=== PATIENT | male | born 1935 | race Caucasian/White ===

== ENCOUNTER 2019-08-21 11:04 | Outpatient (RCR) | payer MEDICARE, SELFPAY ==
[2019-08-21 14:50] LABS: INR 3.4; Prothrombin Time 33.9 Seconds (11.1-14.7)
== END 2019-11-19 23:59 | disposition home or self-care (01) ==
LOC: ANHLAB 11:04
PROVIDERS: PCP Internal Medicine; Visit Provider Internal Medicine Hematology & Oncology
DX: Z51.81 Encounter for therapeutic drug level monitoring (principal); I48.91 Unspecified atrial fibrillation; Z79.899 Other long term (current) drug therapy
CPT/HCPCS: 36415; 85610

== ENCOUNTER 2019-08-26 12:09 | Inpatient (IN) | payer MEDICARE, SELFPAY ==
[2019-08-26] VITALS (8 sets, daily range): BP systolic 121–148; BP diastolic 55–77; PULSE 67–81; RESP 16–24; TEMP 36.1–37.7; O2SAT 99–100; BMI 25.6
--- NOTE | ~2019-08-26 | CT_ITS ---
EXAMINATION: CT abdomen pelvis w con DATE: 08/26/2019 14:55 INDICATION: Leaking gastrostomy tube site TECHNIQUE: Computed tomography (CT) of the abdomen and pelvis was performed without intravenous contr ast. Automated exposure control and iterative reconstruction technique were employed. Exam dose: 534 .29 mGy-cm total exam DLP. COMPARISON: 06/06/2019 CT abdomen FINDINGS: There changes of mild atelectasis or scarring at the dependent lower lobes primarily. No pu lmonary consolidation or mass lesion is noted in the included lower lung zones. Pacemaker leads are noted in the heart. Heart size is borderline. No pericardial or pleural effusion. A gastrostomy tube tract is noted. There is soft tissue density and minimal gas along the tract. No a bscess cavity is detected. There is approximately 1.5 cm ill-defined mass of the caudate process of the liver. There is an approximately 1.1 cm mm right hepatic nonspecific hypoattenuating lesion. Hepatic metasta ses or primary malignancy must be considered. The gallbladder is present. No bile duct or pancreatic duct dilatation. No pancreatic mass lesion or calcification. There are multiple splenic calcified granulomas. No splenomegaly. There is mild left adrenal gland calcification. The adrenal glands are otherwise unremarkable. There are bilateral renal cysts, measuring up to 2.3 cm dimension on the right, 2 cm dimension on the left. No urinary tract calculus or hydroureteronephrosis is detected. The urinary bladder is unremar kable. Mild prostate enlargement. There is calcification and ectasia of the abdominal aorta. There is calcification of the mesenteric a nd renal arteries and the iliac and femoral arteries. No intraperitoneal or retroperitoneal or pelvic mass lesion or adenopathy or ascites. Normal appendix. No bowel obstruction or intraperitoneal free air. There is mild colonic diverticulos is; no CT evidence of diverticulitis. Small fat-containing left inguinal hernia. Healing anterior right 10th rib fracture. There are multiple old healed anterior right ninth, eighth, seventh and sixth rib fractures. There is mild anterior wedge compression fracture deformity, likely old, and T12. There is degenerati ve disc disease throughout the lumbar and lumbosacral spine, most pronounced at L3-4 and L5-S1. There is minimal retrolisthesis at L2-3. There is degenerative change at the apophyseal joints. 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 IMPRESSION: 2 nonspecific hepatic space-occupying mass lesions are noted, measuring 1.5 and 1.1 cm; secondary or primary hepatic malignancy cannot be excluded Gastrostomy tube tract; no abscess cavity detected Bilateral renal cysts Mild left adrenal gland calcification Mild colonic diverticulosis Small fat-containing left inguinal hernia Multiple compression fracture of T12 Multiple right rib fractures, some old, with subacute healing right anterior 10th rib fracture Reviewed, dictated and finalized at [facility]. Reviewed, dictated and finalized at [facility]. [employer] MEMBER IMPRESSION: 2 nonspecific hepatic space-occupying mass lesions are noted, rosana uring 1.5 and 1.1 cm; secondary or primary hepatic malignancy cannot be exclude d Gastrostomy tube tract; no abscess cavity detected Bilateral renal cysts Mild left adrenal gland calcification Mild colonic diverticulosis Small fat-containing left inguinal hernia Multiple compression fracture of T12 Multiple right rib fractures, some old, with subacute healing right anterior 10 th rib fracture
--- NOTE | ~2019-08-26 | XR_ITS ---
EXAMINATION: XR UGIAC wo kub DATE: 09/01/2019 09:11 INDICATION: Gastrocutaneous fistula. TECHNIQUE: The patient drank thick barium, gas-producing crystals, and thin barium. A total of 464 fl uoroscopic images of the esophagus, stomach, and proximal small bowel were obtained. Fluoroscopy expo sure time was 2.4 minutes. COMPARISON: None. FINDINGS: Dilation somewhat limited by limited mobility of the patient with pain in the decubitus positions and unable to be placed in the prone position. Esophageal diverticulum near the thoracic inlet with left and right-sided posterior outpouchings of contrast. The more distal esophagus is normal without mass or stricture. Esophageal motility is within normal limits for age. There is a small sliding-type hia marni hernia with a couple episodes of spontaneous gastroesophageal reflux of moderate amounts of contr ast. There is an additional tiny approximately 4 mm diameter contained outpouching of contrast along the anterior wall of the gastric antrum seen on the right lateral decubitus image in location consist ent with the site of a prior percutaneous gastrostomy tube tract. No evident tracking along the abdom inal wall or further extension to the skin surface. The stomach and proximal small bowel are otherwis e normal. Right internal jugular central venous port catheter tip at the caudal superior vena cava. C ardiac pacemaker lead with tip at the right ventricle. IMPRESSION: 1. Small 4 mm contained outpouching of contrast at the anterior gastric antrum likely at the tract of a prior percutaneous gastrostomy tube. No evident extension to the skin surface or significant loss of gaseous distention of the stomach during the double contrast portion of the study. 2. Upper esophageal diverticulum. 3. Small sliding-type hiatal hernia with gastroesophageal reflux. Reviewed, dictated and finalized at [facility]. S [employer]UITMENT REPRESENTATIVE IMPRESSION: 1. Small 4 mm contained outpouching of contrast at the anterior gastric antrum likely at the tract of a prior percutaneous gastrostomy tube. No evident extens ion to the skin surface or significant loss of gaseous distention of the stomac h during the double contrast portion of the study. 2. Upper esophageal diverticulum. 3. Small sliding-type hiatal hernia with gastroesophageal reflux.
--- NOTE | 2019-08-26 13:36 | ED.RECABL ---
HPI - Recheck/Abnormal Lab/Rx General Chief Complaint: Recheck/Abnormal Lab/Rx Stated Complaint: Feeding tube site leaking. Time Seen by Provider: 08/26/19 13:08 Source: patient Mode of arrival: ambulatory Limitations: no limitations History of Present Illness HPI narrative: Pt is an 83 y/o male who presents to the ED with c/o his G-tube leaking. Pt states he got the G-tube inserted on 07/14/20 d/t his throat CA and his radiation therapy. Pt states that he has never used his G-tube to feed himself, but notes that it has been leaking since it was inserted by Dr. Vogel, the general surgeon. His G-tube was removed 4 days ago, but pt has been having leaking of fluids from his site. Pt is able to eat and drink but when he does it starts leaking from his G-tube site and he states that he feels dehydrated. Pt's oncologist is Dr. Funk and Dr. Bedolla. Pt has not had a BM but he is able to urinate. Pt's spouse has been wrapping his G-tube site BID. He reports ABD pain at G-tube site and throat pain, but denies CP or vomiting. MD complaint: other (G-tube leaking) Symptoms since prior visit: worsening pain Context: other (G-tube leaking) Associated symptoms: abdominal pain and other (throat pain) Treatments prior to arrival: dressings Related Data Home Medications Medication Instructions Recorded Confirmed calcium carbonate [Calcium 600] 600 mg PO DAILY 06/18/19 08/21/19 cholecalciferol (vitamin D3) 1,000 unit PO DAILY 06/18/19 08/21/19 [Vitamin D3] dorzolamide-timolol 1 drp OPHTHALMIC (EYE) BID 06/18/19 08/21/19 folic acid 1 mg PO DAILY 06/18/19 08/21/19 levothyroxine 125 mcg PO DAILY 06/18/19 08/21/19 metoprolol succinate 100 mg PO BID 06/18/19 08/21/19 multivitamin 1 tablet PO DAILY 06/18/19 08/21/19 acetaminophen [Mapap Extra 08/26/19 Strength] aspirin [Aspirin Low Dose] 08/26/19 atorvastatin [Lipitor] 08/26/19 metformin mg 08/26/19 methotrexate (PF) SUBCUT 08/26/19 tofacitinib [Xeljanz XR] mg PO 08/26/19 tramadol mg 08/26/19 warfarin 4 mg PO DAILY 08/26/19 Allergies Allergy/AdvReac Type Severity Reaction Status Date / Time amlodipine Allergy Unknown Swelling Verified 08/26/19 13:28 Review of Systems Review of Systems: Narrative: CONSTITUTIONAL: Reports decreased intake ENT: Reports throat pain CARDIOVASCULAR: Denies chest pain. GASTROINTESTINAL: Reports pain to G-tube site. Denies vomiting GENITOURINARY: Denies difficulty urinating. All systems reviewed & are unremarkable except as noted in HPI and below PMFSH Social History Social History Smoking packs per day: 3 Smoking cigarettes per day: 60.0 Years smoked: 55 Smoking pack-years: 165.00 Smoking status: Former smoker Tobacco type: cigarettes Alcohol intake: current Substance use: never Gender identity (if verbalized by the patient): Male Spiritual care concerns: No Exam Narrative: Exam Narrative: GENERAL: Awake, alert, no acute distress HEAD: Normocephalic, atraumatic. EYES: PERRLA and EOMI. ENT: Nares clear, no rhinorrhea or epistaxis. Mucous membranes dry NECK: Supple. CHEST: Clear to auscultation. No respiratory distress. HEART: Regular rate and rhythm. No murmur heard. Normal peripheral pulses. ABDOMEN: Soft, G-tube site appears to be patent despite G-tube being removed, leakage of gastric material, abd tenderness, no guarding or rebound EXTREMITIES: Normal range of motion. No edema. SKIN: Warm, dry, no rash. NEURO: No focal deficits. Alert and oriented x3 Course Course Emergency Course: Patient presented to the emergency department for evaluation of complication status post gastric tube removal. Patient is still reporting leakage of gastric contents. Dr. Vogel called to check in on the patient after he arrived to the emergency department, we will obtain laboratory studies to check for any electrolyte abnormalities, and patient will be given IV fluids, antiemetic, pain medic
[2019-08-26 14:16] LABS: Hematocrit 38.3 % (42.0-52.0); Hemoglobin 12.5 g/dL (14.0-18.0); Immature Granulocyte Absolute 0.02 K/mm3 (0.00-0.031); Lymphocytes Absolute Auto 0.14 K/mm3 (0.9-3.2); Lymphocytes Percent Auto 7.2 % (18.3-44.2); Mean Corpuscular HGB Conc 32.6 g/dl (32-36); Mean Corpuscular Hemoglobin 32.1 pg (26-34); Mean Corpuscular Volume 98.5 fl (80-100); Mean Platelet Volume 9.9 fl (7.4-10.4); Monocytes Absolute Auto 0.3 K/mm3 (0.1-0.6); Monocytes Percent Auto 13.9 % (2.6-8.5); Neutrophils Absolute Auto 1.5 K/mm3 (1.3-6.7); Neutrophils Percent Auto 76.9 % (45.5-73.1); Platelet Count Result 143 k/mm3 (150-375); Red Blood Count 3.89 M/mm3 (4.6-6.20); Red Cell Distribution Width 15.6 % (11.5-14.5)
[2019-08-26 14:28] LABS: Alanine Aminotransferase 20 U/L (4-50); Albumin Level 3.8 g/dL (3.5-5.1); Alkaline Phosphatase 90 U/L (38-126); Aspartate Amino Transferase 20 U/L (17-59); Bilirubin,Total 0.9 mg/dL (0.2-1.3); Blood Urea Nitrogen 20 mg/dL (9-20); Carbon Dioxide 27 mmol/L (22-30); Chloride 100 mmol/L (98-107); Estimated CRCL calculation 76 ml/min; Estimated Glomerular Filt Rate > 60; Glucose 136 mg/dL (75-110); Lipase 79 U/L (23-300); Potassium 3.9 mmol/L (3.4-5.0); Sodium 138 mmol/L (137-145)
[2019-08-26] MEDS: ONDANSETRON INJ 4 MG/2 ML VIAL IV PUSH (14:28)
[2019-08-26] MEDS: MORPHINE SULFATE 4 MG/ML INJ IV PUSH ×2 (14:28→16:29)
[2019-08-26] MEDS: SODIUM CHLORIDE 0.9% IV 1,000 ML 999 ML IV CONT (14:29)
[2019-08-26 14:30] LABS: White Blood Count 1.9 K/mm3 (4.5-10.0)
[2019-08-26 14:40] LABS: INR 2.5; Partial Thromboplastin Time 44.5 SECONDS (22.3-36.8); Prothrombin Time 26.2 Seconds (11.1-14.7)
--- NOTE | 2019-08-26 16:50 | ADMGEN ---
This patient, Miguel Cruz, was admitted to Medical Room 349-01. Patient arrived to unit per stretcher. Patient/family oriented to hospital policies and general routines including ID bracelet, bed and alarms, visiting hours, pain management, procedures, bathroom and other care routines, personal items, smoking policy, room service/diet, and visiting hours. Valuables list has been completed. Information on how to activate the Rapid Response Team has been discussed. Patient/Family are encouraged to report perceived risks to care and to ask questions if they do not understand what they are told or what they should do.
--- NOTE | 2019-08-26 17:05 | PM.IMHP ---
H&P: HPI History of Present Illness Chief complaint: Abd pain/g tube site complication Narrative: Miguel Cruz is a 83 year old male Who presents with drainage at his G-tube site. He just had his G-tube removed 4 days ago, and has been having drainage of gastric contents at the site ever since. He is having a lot of pain and irritation from the drainage. He also has not been eating or drinking much due to the amount of drainage. He has pain at the site, but no generalized abdominal pain. No fevers or other new changes. He is currently undergoing chemotherapy for esophageal cancer. The G-tube was placed due to significant dysphagia with the esophageal mass. He never actually had to use the G-tube as he was still able to swallow a full liquid diet without much difficulty. Review of Systems Review of Systems: All systems reviewed & are unremarkable except as noted in HPI and below Cardiovascular: Cardiovascular: Denies chest pain Respiratory: Respiratory: Denies cough and Denies dyspnea Gastrointestinal: Gastrointestinal: Reports as per HPI PMFSH Past Medical History Medical History Atrial fibrillation CAD (coronary artery disease) AMI x 3, s/p coronary artery stents Cancer ESOPHAGEAL Cardiac arrhythmia s/p pacemaker Diabetes mellitus HTN (hypertension) Hypercholesterolemia Hypothyroidism Pacemaker Rheumatoid arthritis Skin cancer Surgical History Surgical History Amputated toe Cataract Pacemaker 2012 Family History Family History Other No family history of cancer No family history of cardiac disease Social History Social History Smoking packs per day: 3 Smoking cigarettes per day: 60.0 Years smoked: 55 Smoking pack-years: 165.00 Smoking status: Former smoker Tobacco type: cigarettes Alcohol intake: current Substance use: never Gender identity (if verbalized by the patient): Male Spiritual care concerns: No Meds Home Medications and Allergies Home Medications Medication Instructions Recorded Confirmed Type calcium carbonate [Calcium 600] 600 mg PO DAILY 06/18/19 08/21/19 History cholecalciferol (vitamin D3) 1,000 unit PO DAILY 06/18/19 08/21/19 History [Vitamin D3] dorzolamide-timolol 1 drp OPHTHALMIC (EYE) BID 06/18/19 08/21/19 History folic acid 1 mg PO DAILY 06/18/19 08/21/19 History levothyroxine 125 mcg PO DAILY 06/18/19 08/21/19 History metoprolol succinate 100 mg PO BID 06/18/19 08/21/19 History multivitamin 1 tablet PO DAILY 06/18/19 08/21/19 History hydrocodone 7.5 mg-acetaminophen 15 ml PO Q6H PRN #250 ml 07/22/19 08/21/19 Rx 325 mg/15 mL oral solution acetaminophen [Mapap Extra 08/26/19 History Strength] aspirin [Aspirin Low Dose] 08/26/19 History atorvastatin [Lipitor] 08/26/19 History metformin mg 08/26/19 History methotrexate (PF) SUBCUT 08/26/19 History tofacitinib [Xeljanz XR] mg PO 08/26/19 History tramadol mg 08/26/19 History warfarin 4 mg PO DAILY 08/26/19 History Allergies Allergy/AdvReac Type Severity Reaction Status Date / Time amlodipine Allergy Unknown Swelling Verified 08/26/19 13:28 Vital Signs Vital Signs - 24 hr 08/26/19 12:49 08/26/19 13:31 08/26/19 13:51 Temperature 37.7 C H Pulse Rate 81 81 67 Respiratory Rate 18 24 H 18 Blood Pressure 127/73 142/75 H 135/73 Pulse Oximetry 100 100 100 08/26/19 14:24 08/26/19 15:17 08/26/19 16:21 Temperature Pulse Rate 78 71 75 Respiratory Rate 18 20 18 Blood Pressure 148/71 H 136/77 140/73 Pulse Oximetry 100 100 99 Exam Const: General: comfortable, no acute distress and alert; No acute distress Orientation/consciousness: patient oriented x3 Limitations: no limitations HENMT: Head: normocephalic and atraumatic Ears:
[2019-08-26] MEDS: DEXTROSE 5%/0.45% SOD CHL 1,000 ML 100 ML IV CONT (17:51)
[2019-08-26] MEDS: PANTOPRAZOLE SODIUM IV 40 MG VIAL IV PUSH (20:00)
[2019-08-26 21:36] LABS: Glucose Point of Care 99 (65-105)
[2019-08-27] VITALS (7 sets, daily range): BP systolic 125–142; BP diastolic 59–69; PULSE 62–79; RESP 16–18; TEMP 36.2; O2SAT 99–100; BMI 25.6
[2019-08-27] MEDS: DEXTROSE 5%/0.45% SOD CHL 1,000 ML 100 ML IV CONT ×2 (06:35→17:46)
[2019-08-27] MEDS: PANTOPRAZOLE SODIUM IV 40 MG VIAL IV PUSH ×2 (08:42→21:35)
[2019-08-27 08:43] LABS: Add Urine Microscopic? YES; Appearance Urine Clear (Clear); Bilirubin Urine Negative (Negative); Blood Urine Negative (Negative); Color Urine Yellow (Yellow); Glucose Urine UA Negative (Negative); Ketones Urine Trace mg/dL (Negative); Leukocyte Esterase Ur Negative LEU/UL (NEGATIVE); Nitrate Urine Negative (Negative); Protein Urine Negative (Negative); RBC Urine 0-2 /hpf (0-2); WBC Urine 0-3 /hpf (0-3)
[2019-08-27 08:57] LABS: Specific Grav Ur 1.048 (1.001-1.035)
--- NOTE | 2019-08-27 09:09 | PM.PNGS ---
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 This may close with a period of NPO. Will have to continue to monitor. Started Protonix IV as well to help with gastric secretion. Will consult Wound/ET nurse to evaluate for wound care while this is still draining. (2) Acute urinary retention: Code(s): R33.8 - Other retention of urine Status: Acute Assessment and Plan: Patient does not have a prior hx. Will check bladder scan later today after being straight cathed today. (3) Protein calorie malnutrition: Qualifiers: Protein-calorie malnutrition severity: mild Qualified Code(s): E44.1 - Mild protein-calorie malnutrition Code(s): E46 - Unspecified protein-calorie malnutrition Status: Acute Assessment and Plan: Will start TPN today. This may only be temporary while patient is NPO, but if the fistula persists, then he may need to be on TPN until the fistula can be surgically taken down. (4) Acute dehydration: Code(s): E86.0 - Dehydration Status: Acute (5) Esophageal cancer, stage IV: Code(s): C15.9 - Malignant neoplasm of esophagus, unspecified Status: Acute (6) Atrial fibrillation: Code(s): I48.91 - Unspecified atrial fibrillation Status: Acute (7) Hypercholesterolemia: Code(s): E78.00 - Pure hypercholesterolemia, unspecified Status: Acute (8) HTN (hypertension): Code(s): I10 - Essential (primary) hypertension Status: Acute (9) Hypothyroidism: Code(s): E03.9 - Hypothyroidism, unspecified Status: Acute (10) Diabetes mellitus: Code(s): E11.9 - Type 2 diabetes mellitus without complications Status: Acute Subjective Subjective Date/Time Seen: 08/27/19 09:09 Patient still having some drainage out the G-tube site. Also having urinary retention overnight and had to be straight cathed this AM. Exam GI: Other: small opening from g-tube site, mucus drainage with mild surrounding erythema Objective Data Vital Signs Vital Signs: Vital Signs - 24 hr 08/26/19 12:49 08/26/19 13:31 08/26/19 13:51 Temperature 37.7 C H Pulse Rate 81 81 67 Respiratory Rate 18 24 H 18 Blood Pressure 127/73 142/75 H 135/73 Pulse Oximetry 100 100 100 08/26/19 14:24 08/26/19 15:17 08/26/19 16:21 Temperature Pulse Rate 78 71 75 Respiratory Rate 18 20 18 Blood Pressure 148/71 H 136/77 140/73 Pulse Oximetry 100 100 99 08/26/19 17:00 08/26/19 20:11 08/27/19 05:15 Temperature 36.5 C 36.1 C L 36.2 C L Pulse Rate 80 80 67 Respiratory Rate 16 16 16 Blood Pressure 146/75 H 121/55 L 142/64 H Pulse Oximetry 100 99 99 Intake/Output Intake/Output: Intake & Output 08/24/19 08/25/19 08/26/19 08/27/19 23:59 23:59 23:59 23:59 Intake Total 1000 1000 Output Total 1900 Balance 1000 -900 Meds/Results Medications: Active Medications Generic Name Dose Route Start Last Admin Trade Name Freq PRN Reason Stop Dose Admin Dorzolamide/Timolol 1 drop 08/27/19 21:00 Cosopt Eye Drops EACH EYE Q12HR SARIKA Dextrose/Sodium Chloride 1,000 mls @ 100 mls/hr 08/26/19 15:35 08/27/19 06:35 Dextrose 5% Sodium Chloride 0.45% IV CONT 100 mls/hr .Q10H SARIKA Administration Acetaminophen 1,000 mg in 100 mls @ 400 mls/hr 08/26/19 17:15 Ofirmev 1,000 Mg Ivpb IVPB 08/27/19 17:16 Q6H PRN Pain Rated 1-3 Dextrose 1,000 mls @ 50 mls/hr 08/27/19 09:00 Dextrose 10% IV CONT .Q20H PRN if PN is interrupted Multivitamins 5 ml/ Amino 2,005 mls @ 40 mls/hr 08/27/19 09:00 Acids/Electrolytes/Dextrose IV CONT .Q24H SARIKA Protocol Insulin Aspart 0 units 08/27/19 12:00 SUB-Q Q6HR SARIKA Protocol Levothyroxine Sod
[2019-08-27] MEDS: LEVOTHYROXINE SODIUM 125 MCG TABLET PO (10:09)
[2019-08-27] MEDS: METOPROLOL SUCCINATE EXT REL 100 MG TABCR PO ×2 (10:10→21:35)
[2019-08-27 10:54] LABS: Alanine Aminotransferase 14 U/L (4-50); Albumin Level 2.8 g/dL (3.5-5.1); Alkaline Phosphatase 71 U/L (38-126); Aspartate Amino Transferase 15 U/L (17-59); Bilirubin,Total 0.7 mg/dL (0.2-1.3); Blood Urea Nitrogen 11 mg/dL (9-20); Calcium 8.1 mg/dL (8.4-10.2); Carbon Dioxide 26 mmol/L (22-30); Chloride 101 mmol/L (98-107); Estimated CRCL calculation 87 ml/min; Estimated Glomerular Filt Rate > 60; Glucose 172 mg/dL (75-110); Magnesium 1.6 mg/dL (1.6-2.3); Potassium 3.2 mmol/L (3.4-5.0); Sodium 136 mmol/L (137-145)
[2019-08-27 10:55] LABS: Partial Thromboplastin Time 47.9 SECONDS (22.3-36.8)
[2019-08-27 10:57] LABS: Transferrin 136 mg/dL (206-381)
[2019-08-27 11:53] LABS: Hematocrit 28.8 % (42.0-52.0); Hemoglobin 8.5 g/dL (14.0-18.0); Mean Corpuscular HGB Conc 29.5 g/dl (32-36); Mean Corpuscular Volume 108.3 fl (80-100); Mean Platelet Volume 9.6 fl (7.4-10.4); Platelet Count Result 97 k/mm3 (150-375); Red Blood Count 2.66 M/mm3 (4.6-6.20); Red Cell Distribution Width 15.8 % (11.5-14.5)
[2019-08-27 11:57] LABS: White Blood Count 1.2 K/mm3 (4.5-10.0)
[2019-08-27 12:52] LABS: Band Neutrophils Percent 4 % (0-6); Lymphocytes Absolute Manual 0.19 K/mm3 (1.1-4.5); Metamyelocytes Percent 4 %; Monocytes Absolute Manual 0.04 K/mm3 (0.1-0.90); Monocytes Percent Manual 4 % (3-9); Neutrophils Absolute Manual 0.91 K/mm3 (1.3-6.7); Neutrophils Percent Manual 72 % (46-73); Platelet Estimate Decreased (Adequate); Polychromasia 1+ (NORMAL); Schistocytes 1+ (NORMAL); Total Cells Counted 25
[2019-08-27 12:53] LABS: Ovalocytes 2+ (NORMAL)
[2019-08-27 12:58] LABS: Glucose Point of Care 214 (65-105)
[2019-08-27] MEDS: INSULIN HUMAN REGULAR (*BKC) 100 UNITS/ML SUB-Q (13:57)
[2019-08-27] MEDS: MORPHINE SULFATE 4 MG/ML INJ IV PUSH ×2 (17:58→21:36)
[2019-08-27 18:04] LABS: Glucose Point of Care 159 (65-105)
[2019-08-27] MEDS: DORZOLAMIDE/TIMOLOL OPHTH SOL 10 ML BOTTLE 1 DROP EACH EYE (21:35)
[2019-08-28 00:21] LABS: Glucose Point of Care 183 (65-105)
[2019-08-28 06:00] VITALS: BP 125/68
[2019-08-28] MEDS: DEXTROSE 5%/0.45% SOD CHL 1,000 ML 100 ML IV CONT (06:11)
[2019-08-28] MEDS: LEVOTHYROXINE SODIUM 125 MCG TABLET PO (06:12)
[2019-08-28 06:16] LABS: Hematocrit 29.8 % (42.0-52.0); Hemoglobin 9.7 g/dL (14.0-18.0); Mean Corpuscular HGB Conc 32.6 g/dl (32-36); Mean Corpuscular Hemoglobin 31.8 pg (26-34); Mean Corpuscular Volume 97.7 fl (80-100); Mean Platelet Volume 9.3 fl (7.4-10.4); Platelet Count Result 115 k/mm3 (150-375); Red Blood Count 3.05 M/mm3 (4.6-6.20); Red Cell Distribution Width 15.6 % (11.5-14.5)
[2019-08-28 06:27] LABS: Alanine Aminotransferase 12 U/L (4-50); Albumin Level 2.6 g/dL (3.5-5.1); Alkaline Phosphatase 61 U/L (38-126); Aspartate Amino Transferase 13 U/L (17-59); Bilirubin,Total 0.5 mg/dL (0.2-1.3); Blood Urea Nitrogen 12 mg/dL (9-20); Calcium 7.7 mg/dL (8.4-10.2); Carbon Dioxide 26 mmol/L (22-30); Chloride 100 mmol/L (98-107); Estimated CRCL calculation 87 ml/min; Estimated Glomerular Filt Rate > 60; Glucose 132 mg/dL (75-110); Magnesium 1.6 mg/dL (1.6-2.3); Phosphorus 3.3 mg/dL (2.5-4.5); Potassium 2.9 mmol/L (3.4-5.0); Sodium 134 mmol/L (137-145); Triglycerides 144 mg/dL (<150)
[2019-08-28 06:30] LABS: Glucose Point of Care 139 (65-105)
[2019-08-28 07:00] LABS: White Blood Count 1.2 K/mm3 (4.5-10.0)
[2019-08-28 07:02] LABS: Band Neutrophils Percent 4 % (0-6); Lymphocytes Absolute Manual 0.26 K/mm3 (1.1-4.5); Monocytes Absolute Manual 0.13 K/mm3 (0.1-0.90); Monocytes Percent Manual 11 % (3-9); Neutrophils Percent Manual 63 % (46-73); Platelet Estimate Decreased (Adequate); Total Cells Counted 100
[2019-08-28 09:35] VITALS: BP 135/67; PULSE 72
[2019-08-28] MEDS: DORZOLAMIDE/TIMOLOL OPHTH SOL 10 ML BOTTLE 1 DROP EACH EYE ×2 (09:37→21:37)
[2019-08-28] MEDS: PANTOPRAZOLE SODIUM IV 40 MG VIAL IV PUSH ×2 (09:40→21:41)
[2019-08-28] MEDS: MORPHINE SULFATE 4 MG/ML INJ IV PUSH ×3 (09:41→21:41)
[2019-08-28 10:00] VITALS: PULSE 67
[2019-08-28] MEDS: METOPROLOL SUCCINATE EXT REL 100 MG TABCR PO ×2 (10:00→21:37)
--- NOTE | 2019-08-28 11:27 | PM.PNGS ---
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 If it does not close within the next 2-3 days, will need to proceed with takedown of gastrocutaneous fistula. (2) Protein calorie malnutrition: Qualifiers: Protein-calorie malnutrition severity: mild Qualified Code(s): E44.1 - Mild protein-calorie malnutrition Code(s): E46 - Unspecified protein-calorie malnutrition Status: Acute Assessment and Plan: TPN renewed Replace electrolytes (3) Acute urinary retention: Code(s): R33.8 - Other retention of urine Status: Resolved Assessment and Plan: Urinating better today (4) Esophageal cancer, stage IV: Code(s): C15.9 - Malignant neoplasm of esophagus, unspecified Status: Acute (5) Atrial fibrillation: Code(s): I48.91 - Unspecified atrial fibrillation Status: Acute (6) Hypercholesterolemia: Code(s): E78.00 - Pure hypercholesterolemia, unspecified Status: Acute (7) HTN (hypertension): Code(s): I10 - Essential (primary) hypertension Status: Acute (8) Hypothyroidism: Code(s): E03.9 - Hypothyroidism, unspecified Status: Acute (9) Diabetes mellitus: Code(s): E11.9 - Type 2 diabetes mellitus without complications Status: Acute Subjective Subjective Date/Time Seen: 08/28/19 11:27 Ostomy bag applied over wound yesterday. Still having some gas and liquid in bag today. Mostly complains of throat pain from radiation. Exam GI: Inspection: other (gastrocutaneous fistula with scant drainage and gas in ostomy bag) Objective Data Vital Signs Vital Signs: Vital Signs - 24 hr 08/27/19 14:00 08/27/19 19:57 08/27/19 20:00 Temperature 36.2 C L 36.2 C L Pulse Rate 67 79 62 Respiratory Rate 18 16 16 Blood Pressure 126/59 L 125/69 Pulse Oximetry 100 100 100 08/27/19 21:35 08/28/19 06:00 08/28/19 10:00 Temperature Pulse Rate 62 67 Respiratory Rate Blood Pressure 125/68 Pulse Oximetry Intake/Output Intake/Output: Intake & Output 08/25/19 08/26/19 08/27/19 08/28/19 23:59 23:59 23:59 23:59 Intake Total 1000 1999 3255 Output Total 2850 350 Balance 1000 -850 2905 Meds/Results Medications: Active Medications Generic Name Dose Route Start Last Admin Trade Name Freq PRN Reason Stop Dose Admin Benzocaine 1 lozenge 08/28/19 11:27 Chloraseptic Lozenge PO Q6H PRN Sore Throat Dorzolamide/Timolol 1 drop 08/27/19 21:00 08/28/19 09:37 Cosopt Eye Drops EACH EYE 1 drop Q12HR SARIKA Administration Heparin Sodium (Porcine) 500 units 08/28/19 11:18 Heparin Sod Flush 100 Units/Ml IV PUSH PRN PRN see comments below Dextrose/Sodium Chloride 1,000 mls @ 100 mls/hr 08/26/19 15:35 08/28/19 06:11 Dextrose 5% Sodium Chloride 0.45% IV CONT 100 mls/hr .Q10H SARIKA Administration Dextrose 1,000 mls @ 50 mls/hr 08/27/19 09:00 Dextrose 10% IV CONT .Q20H PRN if PN is interrupted Multivitamins 5 ml/ Amino 2,005 mls @ 40 mls/hr 08/27/19 10:00 08/28/19 09:51 Acids/Electrolytes/Dextrose IV CONT 40 mls/hr .Q24H SARIKA Administration Protocol Fat Emulsion Intravenous 250 mls @ 20.833 mls/hr 08/28/19 11:00 Lipids 20% IVPB Q24H SARIKA Potassium Chloride 100 mls @ 25 mls/hr 08/28/19 11:07 Kcl 40 Meq/Water 100 Ml IVPB 08/28/19 15:06 ONCE ONE Insulin Aspart 0 units 08/27/19 12:00 08/28/19 06:12 SUB-Q Not Given Q6HR SARIKA Protocol Levothyroxine Sodium 125 mcg 08/27/19 09:00 08/28/19 06:12 Synthroid PO 125 mcg DAILY@0630 SARIKA Administration Metoprolol Succinate 100 mg 08/27/19 09:00 08/28/19 10:00 Toprol Xl PO 100 mg Q12HR SARIKA Administration Morphine Sulfate
[2019-08-28] MEDS: BENZOCAINE/MENTHOL (*BKC) 18 EA LOZENGE 1 LOZENGE PO (12:13)
[2019-08-28] MEDS: FAT EMULSIONS IV 20% 250 ML 20.8 ML IVPB (12:14)
[2019-08-28 12:20] LABS: Glucose Point of Care 170 (65-105)
[2019-08-28 14:00] VITALS: BP 130/67; PULSE 85; RESP 20; TEMP 36.2; O2SAT 100
[2019-08-28] MEDS: EUCERIN CREAM 120 GM JAR 1 APPLIC TOPICAL (17:43)
[2019-08-28 17:46] LABS: Glucose Point of Care 152 (65-105)
[2019-08-28 21:37] VITALS: PULSE 68
[2019-08-28 21:39] VITALS: BP 127/62; PULSE 67; RESP 16; TEMP 37; O2SAT 98
[2019-08-29 01:24] LABS: Glucose Point of Care 155 (65-105)
[2019-08-29 04:51] VITALS: BP 102/48; PULSE 67; RESP 16; TEMP 36.7; O2SAT 98
[2019-08-29] MEDS: LEVOTHYROXINE SODIUM 125 MCG TABLET PO (05:54)
[2019-08-29 05:58] LABS: Glucose Point of Care 98 (65-105)
[2019-08-29 06:16] LABS: Blood Urea Nitrogen 16 mg/dL (9-20); Calcium 7.7 mg/dL (8.4-10.2); Carbon Dioxide 23 mmol/L (22-30); Chloride 104 mmol/L (98-107); Estimated CRCL calculation 76 ml/min; Estimated Glomerular Filt Rate > 60; Glucose 151 mg/dL (75-110); Phosphorus 2.7 mg/dL (2.5-4.5); Potassium 3.3 mmol/L (3.4-5.0); Sodium 135 mmol/L (137-145)
[2019-08-29 07:59] VITALS: BP 105/50; PULSE 73; RESP 16; TEMP 36.6; O2SAT 96
[2019-08-29] MEDS: PANTOPRAZOLE SODIUM IV 40 MG VIAL IV PUSH ×2 (09:04→22:59)
[2019-08-29] MEDS: DORZOLAMIDE/TIMOLOL OPHTH SOL 10 ML BOTTLE 1 DROP EACH EYE ×2 (09:11→22:59)
--- NOTE | 2019-08-29 11:16 | PCDIET ---
Nutrition Follow-Up Complete: Inadequate Protein Energy Intake as related to Esophageal Cancer as evidenced by weight loss of > 20% in 3 months. advance diet as tolearted per MD orders- intake at least 75% of meals. Goal not met. Nutrition recommendation: Recommend advancement of Clinimix to goal rate of 80ml/hr to provide adequate nutrition for patient. Reaching goal rate in addition to lipid emulsions (20%) would provide 1863kcals and 96grams pro. As last recorded +BM was on 08/24, recommend a motility agent, if medically appropriate. Last recorded weight is 87.2 kg. Bowel Motility:+BM 2/ Labs Reviewed:Na(135), K(3.3), Glu(151), Ca(7.7) Meds Noted:Zofran, KCl, Synthroid, Fat emulsion IV (lipids 20%) Additional Notes: Noted fat emulsions 20% 250ml at 20.833mls/hr Q24H added. Will continue to monitor labs, rate, and weight. Will follow up every Sunday and Sunday.
[2019-08-29 11:20] LABS: Glucose Point of Care 137 (65-105)
--- NOTE | 2019-08-29 12:35 | PCNSR ---
On 08/29/19, the student, Natalie Carvajal, provided care and completed [facility] documentation on this patient. I have reviewed the student's documentation and agree with the findings.
[2019-08-29] MEDS: MORPHINE SULFATE 4 MG/ML INJ IV PUSH ×2 (12:57→17:14)
[2019-08-29] MEDS: FAT EMULSIONS IV 20% 250 ML 21 ML IVPB (13:01)
[2019-08-29 14:00] VITALS: BP 121/53; PULSE 66; RESP 18; TEMP 36.4; O2SAT 100
[2019-08-29 17:13] LABS: Glucose Point of Care 135 (65-105)
[2019-08-29 21:38] VITALS: BP 125/63; PULSE 68; RESP 22; TEMP 37.2; O2SAT 100
[2019-08-29 22:59] VITALS: PULSE 68
[2019-08-29] MEDS: METOPROLOL SUCCINATE EXT REL 100 MG TABCR PO (22:59)
[2019-08-29 23:11] LABS: Glucose Point of Care 136 (65-105)
[2019-08-30] VITALS (7 sets, daily range): BP systolic 98–120; BP diastolic 52–66; PULSE 67–72; RESP 16–20; TEMP 36.2–36.7; O2SAT 96–98
[2019-08-30] MEDS: MORPHINE SULFATE 4 MG/ML INJ IV PUSH ×3 (05:10→21:11)
[2019-08-30 05:14] LABS: Glucose Point of Care 168 (65-105)
[2019-08-30] MEDS: LEVOTHYROXINE SODIUM 125 MCG TABLET PO (05:16)
[2019-08-30 05:59] LABS: Blood Urea Nitrogen 17 mg/dL (9-20); Carbon Dioxide 22 mmol/L (22-30); Chloride 103 mmol/L (98-107); Estimated CRCL calculation 87 ml/min; Estimated Glomerular Filt Rate > 60; Glucose 175 mg/dL (75-110); Phosphorus 2.8 mg/dL (2.5-4.5); Potassium 3.5 mmol/L (3.4-5.0); Sodium 136 mmol/L (137-145)
[2019-08-30 07:46] LABS: Triglycerides 98 mg/dL (<150)
[2019-08-30] MEDS: METOPROLOL SUCCINATE EXT REL 100 MG TABCR PO ×2 (08:56→21:08)
[2019-08-30] MEDS: PANTOPRAZOLE SODIUM IV 40 MG VIAL IV PUSH ×2 (08:56→21:08)
[2019-08-30] MEDS: DORZOLAMIDE/TIMOLOL OPHTH SOL 10 ML BOTTLE 1 DROP EACH EYE ×2 (08:58→21:08)
[2019-08-30] MEDS: EUCERIN CREAM 120 GM JAR 1 APPLIC TOPICAL (08:59)
--- NOTE | 2019-08-30 10:50 | PM.PNGS ---
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: Code(s): K31.6 - Fistula of stomach and duodenum Status: Acute Assessment and Plan: gastric output from fistula seems to be decreasing will continue to monitor for possible spontaneous closure could consider Gastrografin upper GI tomorrow or Sunday if output is continuing to decrease if no improvement by Sunday, we will plan for takedown of gastric cutaneous fistula (2) Protein calorie malnutrition: Qualifiers: Protein-calorie malnutrition severity: mild Qualified Code(s): E44.1 - Mild protein-calorie malnutrition Code(s): E46 - Unspecified protein-calorie malnutrition Status: Acute Assessment and Plan: will increase TPN to 80 mL/hr to maximize nutrition while NPO (3) Esophageal cancer, stage IV: Code(s): C15.9 - Malignant neoplasm of esophagus, unspecified Status: Acute Subjective Subjective Date/Time Seen: 08/30/19 10:50 less gastric drainage today, does not complain of much skin irritation around G-tube site, tolerating TPN Exam GI: Inspection: other ( gastric cutaneous fistula with ostomy appliance in place) Other: minimal gastric drainage from gastric cutaneous fistula Objective Data Vital Signs Vital Signs: Vital Signs - 24 hr 08/29/19 14:00 08/29/19 21:38 08/29/19 22:59 Temperature 36.4 C L 37.2 C Pulse Rate 66 68 68 Respiratory Rate 18 22 H Blood Pressure 121/53 L 125/63 Pulse Oximetry 100 100 08/30/19 05:35 08/30/19 08:56 Temperature 36.7 C Pulse Rate 69 72 Respiratory Rate 20 Blood Pressure 108/58 L Pulse Oximetry 98 Intake/Output Intake/Output: Intake & Output 08/27/19 08/28/19 08/29/19 08/30/19 23:59 23:59 23:59 23:59 Intake Total 1999 8361 3886 941 Output Total 2099 966 850 150 Balance -850 9439 2399 099 Meds/Results Medications: Active Medications Generic Name Dose Route Start Last Admin Trade Name Freq PRN Reason Stop Dose Admin Benzocaine 1 lozenge 08/28/19 11:27 08/28/19 12:13 Chloraseptic Lozenge PO 1 lozenge Q6H PRN Administration Sore Throat Dorzolamide/Timolol 1 drop 08/27/19 21:00 08/30/19 08:58 Cosopt Eye Drops EACH EYE 1 drop Q12HR SARIKA Administration Heparin Sodium (Porcine) 500 units 08/28/19 11:18 Heparin Sod Flush 100 Units/Ml IV PUSH PRN PRN see comments below Dextrose 1,000 mls @ 50 mls/hr 08/27/19 09:00 Dextrose 10% IV CONT .Q20H PRN if PN is interrupted Fat Emulsion Intravenous 250 mls @ 20.833 mls/hr 08/28/19 11:00 08/30/19 05:19 Lipids 20% IVPB Infused Q24H SARIKA Infusion Multivitamins 5 ml/ Amino 2,005 mls @ 80 mls/hr 08/30/19 10:35 Acids/Electrolytes/Dextrose IV CONT .Q24H [facility] Protocol Insulin Aspart 0 units 08/27/19 12:00 08/30/19 05:18 SUB-Q Not Given Q6HR [facility]1983 Protocol Levothyroxine Sodium 125 mcg 08/27/19 09:00 08/30/19 05:16 Synthroid PO 125 mcg DAILY@0630 [facility]1983 Administration Metoprolol Succinate 100 mg 08/27/19 09:00 08/30/19 08:56 Toprol Xl PO 100 mg Q12HR [facility] Administration Morphine Sulfate 4 mg 08/26/19 15:30 08/30/19 09:08 Morphine Sulfate Inj IV PUSH 4 mg Q2H PRN Administration Pain Rated 7-10 Multi-Ingred Cream/Lotion/Oil/Oint 1 applic 08/28/19 09:00 08/30/19 08:59 Minerin Creme TOPICAL 1 applic QAM SARIKA Administration Ondansetron HCl 4 mg 08/26/19 15:30 Zofran Inj IV PUSH Q4H PRN Nausea Pantoprazole Sodium 40 mg 08/26/19 21:00 08/30/19 08:56 Protonix Iv IV PUSH 40 mg Q12HR SARIKA Administration Tolnaftate 1 applic 08/27/19 09:48 Tolnaftate 1% Powder TOPICAL 09/10/19 09:49 PRN PRN Rash Radiology Results: ITS Impressions Abdomen/Pelvis CT 08/26/19 14:56 IMPRESSION: 2 nonspecific hepatic space-occupying mass lesions are noted, measuring 1.5 and 1.1 cm; secondary o
[2019-08-30] MEDS: FAT EMULSIONS IV 20% 250 ML 21 ML IVPB (11:54)
[2019-08-30 12:18] LABS: Glucose Point of Care 150 (65-105)
[2019-08-30 18:38] LABS: Glucose Point of Care 135 (65-105)
[2019-08-31] MEDS: MORPHINE SULFATE 4 MG/ML INJ IV PUSH ×3 (00:43→20:59)
[2019-08-31] MEDS: INSULIN HUMAN REGULAR (*BKC) 100 UNITS/ML SUB-Q (01:08)
[2019-08-31 01:35] LABS: Glucose Point of Care 217 (65-105)
[2019-08-31] MEDS: LEVOTHYROXINE SODIUM 125 MCG TABLET PO (05:36)
[2019-08-31 06:00] VITALS: BP 120/60; PULSE 60; RESP 16; TEMP 36.4; O2SAT 100
[2019-08-31 06:06] LABS: Blood Urea Nitrogen 20 mg/dL (9-20); Calcium 7.9 mg/dL (8.4-10.2); Carbon Dioxide 24 mmol/L (22-30); Chloride 102 mmol/L (98-107); Estimated CRCL calculation 87 ml/min; Estimated Glomerular Filt Rate > 60; Glucose 140 mg/dL (75-110); Phosphorus 3.5 mg/dL (2.5-4.5); Potassium 3.6 mmol/L (3.4-5.0); Sodium 136 mmol/L (137-145)
[2019-08-31 07:03] LABS: Glucose Point of Care 142 (65-105)
[2019-08-31] MEDS: DORZOLAMIDE/TIMOLOL OPHTH SOL 10 ML BOTTLE 1 DROP EACH EYE ×2 (09:13→20:59)
[2019-08-31] MEDS: PANTOPRAZOLE SODIUM IV 40 MG VIAL IV PUSH ×2 (09:13→20:59)
[2019-08-31] MEDS: EUCERIN CREAM 120 GM JAR 1 APPLIC TOPICAL (09:14)
[2019-08-31 09:15] VITALS: PULSE 72; RESP 16; O2SAT 100
[2019-08-31] MEDS: METOPROLOL SUCCINATE EXT REL 100 MG TABCR PO ×2 (09:15→20:57)
--- NOTE | 2019-08-31 09:58 | PM.PNGS ---
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 If there is minimal residual fistula, this may close with a little more time. If large fistula tract remains, then we will proceed with takedown of gastrocutaneous fistula. (2) Protein calorie malnutrition: Qualifiers: Protein-calorie malnutrition severity: mild Qualified Code(s): E44.1 - Mild protein-calorie malnutrition Code(s): E46 - Unspecified protein-calorie malnutrition Status: Acute Assessment and Plan: Continue TPN while NPO (3) Esophageal cancer, stage IV: Code(s): C15.9 - Malignant neoplasm of esophagus, unspecified Status: Acute Subjective Subjective Date/Time Seen: 08/31/19 09:58 gastric output continues to decrease slowly Exam GI: Inspection: normal to inspection and other ( gastric cutaneous fistula with ostomy appliance in place) Auscultation: normal bowel sounds Other: minimal gastric drainage from gastric cutaneous fistula Objective Data Vital Signs Vital Signs: Vital Signs - 24 hr 08/30/19 14:00 08/30/19 21:00 08/30/19 21:08 Temperature 36.2 C L 36.4 C L Pulse Rate 70 71 68 Respiratory Rate 16 16 Blood Pressure 119/58 L 98/52 L Pulse Oximetry 96 96 08/30/19 22:52 08/31/19 06:00 08/31/19 09:15 Temperature 36.4 C L Pulse Rate 67 60 72 Respiratory Rate 16 Blood Pressure 120/66 120/60 Pulse Oximetry 100 Intake/Output Intake/Output: Intake & Output 08/28/19 08/29/19 08/30/19 08/31/19 23:59 23:59 23:59 23:59 Intake Total 4355 2462 1587 1143 Output Total 550 812 775 175 Balance 3805 1612 812 968 Meds/Results Medications: Active Medications Generic Name Dose Route Start Last Admin Trade Name Freq PRN Reason Stop Dose Admin Benzocaine 1 lozenge 08/28/19 11:27 08/28/19 12:13 Chloraseptic Lozenge PO 1 lozenge Q6H PRN Administration Sore Throat Dorzolamide/Timolol 1 drop 08/27/19 21:00 08/31/19 09:13 Cosopt Eye Drops EACH EYE 1 drop Q12HR SARIKA Administration Heparin Sodium (Porcine) 500 units 08/28/19 11:18 Heparin Sod Flush 100 Units/Ml IV PUSH PRN PRN see comments below Dextrose 1,000 mls @ 50 mls/hr 08/27/19 09:00 Dextrose 10% IV CONT .Q20H PRN if PN is interrupted Fat Emulsion Intravenous 250 mls @ 20.833 mls/hr 08/28/19 11:00 08/31/19 04:07 Lipids 20% IVPB Infused Q24H SARIKA Infusion Multivitamins 5 ml/ Amino 2,005 mls @ 80 mls/hr 08/30/19 10:35 08/31/19 05:38 Acids/Electrolytes/Dextrose IV CONT 80 mls/hr .Q24H [facility] Infusion Protocol Insulin Aspart 0 units 08/27/19 12:00 08/31/19 05:37 SUB-Q Not Given Q6HR [facility] Protocol Levothyroxine Sodium 125 mcg 08/27/19 09:00 08/31/19 05:36 Synthroid PO 125 mcg DAILY@0630 [facility] Administration Metoprolol Succinate 100 mg 08/27/19 09:00 08/31/19 09:15 Toprol Xl PO 100 mg Q12HR [facility] Administration Morphine Sulfate 4 mg 08/26/19 15:30 08/31/19 00:43 Morphine Sulfate Inj IV PUSH 4 mg Q2H PRN Administration Pain Rated 7-10 Multi-Ingred Cream/Lotion/Oil/Oint 1 applic 08/28/19 09:00 08/31/19 09:14 Minerin Creme TOPICAL 1 applic QAM [facility] Administration Ondansetron HCl 4 mg 08/26/19 15:30 Zofran Inj IV PUSH Q4H PRN Nausea Pantoprazole Sodium 40 mg 08/26/19 21:00 08/31/19 09:13 Protonix Iv IV PUSH 40 mg Q12HR SARIKA Administration Tolnaftate 1 applic 08/27/19 09:48 Tolnaftate 1% Powder TOPICAL 09/10/19 09:49 PRN PRN Rash Radiology Results: ITS Impressions Abdomen/Pelvis CT 08/26/19 14:56 IMPRESSION: 2 nonspecific hepatic space-occupying mass lesions are noted, measuring 1.5 and 1.1 cm; secondary or primary hepatic malignancy cannot be excluded Gastrostomy tube t
[2019-08-31 13:06] LABS: Glucose Point of Care 141 (65-105)
[2019-08-31 14:00] VITALS: BP 122/68; PULSE 68; RESP 20; TEMP 36.4; O2SAT 100
[2019-08-31 18:06] LABS: Glucose Point of Care 161 (65-105)
[2019-08-31] MEDS: FAT EMULSIONS IV 20% 250 ML 20.8 ML IVPB (18:17)
[2019-08-31 20:57] VITALS: PULSE 64
[2019-08-31 22:00] VITALS: BP 121/56; PULSE 58; RESP 16; TEMP 37.2; O2SAT 100
[2019-09-01 00:07] LABS: Glucose Point of Care 189 (65-105)
[2019-09-01] MEDS: LEVOTHYROXINE SODIUM 125 MCG TABLET PO (05:54)
[2019-09-01 05:59] LABS: Glucose Point of Care 221 (65-105)
[2019-09-01] MEDS: INSULIN HUMAN REGULAR (*BKC) 100 UNITS/ML SUB-Q ×2 (05:59→12:13)
[2019-09-01 06:00] VITALS: BP 131/65; PULSE 69; RESP 16; TEMP 36.2; O2SAT 100
[2019-09-01 06:02] LABS: Basophils Percent Auto 0.3 % (0.2-1.2); Eosinophils Percent Auto 0.3 % (0-4.4); Hemoglobin 9.2 g/dL (14.0-18.0); Immature Granulocyte Absolute 0.22 K/mm3 (0.00-0.031); Immature Granulocyte Percent A 5.6 % (0-0.5); Lymphocytes Absolute Auto 0.21 K/mm3 (0.9-3.2); Lymphocytes Percent Auto 5.4 % (18.3-44.2); Mean Corpuscular HGB Conc 32.9 g/dl (32-36); Mean Corpuscular Hemoglobin 31.8 pg (26-34); Mean Corpuscular Volume 96.9 fl (80-100); Mean Platelet Volume 10.6 fl (7.4-10.4); Monocytes Absolute Auto 0.6 K/mm3 (0.1-0.6); Monocytes Percent Auto 15.6 % (2.6-8.5); Neutrophils Absolute Auto 2.9 K/mm3 (1.3-6.7); Neutrophils Percent Auto 72.8 % (45.5-73.1); Platelet Count Result 88 k/mm3 (150-375); Red Blood Count 2.89 M/mm3 (4.6-6.20); Red Cell Distribution Width 15.8 % (11.5-14.5); White Blood Count 3.9 K/mm3 (4.5-10.0)
[2019-09-01 06:11] LABS: INR 1.2; Prothrombin Time 15.3 Seconds (11.1-14.7)
[2019-09-01 06:12] LABS: Partial Thromboplastin Time 42.3 SECONDS (22.3-36.8)
[2019-09-01 06:29] LABS: Alanine Aminotransferase 11 U/L (4-50); Albumin Level 2.3 g/dL (3.5-5.1); Alkaline Phosphatase 70 U/L (38-126); Aspartate Amino Transferase 13 U/L (17-59); Bilirubin,Total 0.4 mg/dL (0.2-1.3); Blood Urea Nitrogen 21 mg/dL (9-20); Calcium 7.7 mg/dL (8.4-10.2); Carbon Dioxide 24 mmol/L (22-30); Chloride 101 mmol/L (98-107); Estimated CRCL calculation 103 ml/min; Estimated Glomerular Filt Rate > 60; Glucose 220 mg/dL (75-110); Magnesium 1.9 mg/dL (1.6-2.3); Phosphorus 3.4 mg/dL (2.5-4.5); Potassium 3.6 mmol/L (3.4-5.0); Sodium 136 mmol/L (137-145)
[2019-09-01 06:36] LABS: Transferrin 88 mg/dL (206-381)
[2019-09-01 06:50] LABS: Ovalocytes 2+ (NORMAL); Platelet Estimate Decreased (Adequate); Tear Drop Cells 2+ (NORMAL)
[2019-09-01 06:51] LABS: Crenated RBC 2+ (NORMAL); Hypochromasia 2+ (NORMAL); Polychromasia 1+ (NORMAL); Schistocytes 1+ (NORMAL)
[2019-09-01 08:35] LABS: Triglycerides 96 mg/dL (<150)
[2019-09-01 10:04] VITALS: PULSE 75
[2019-09-01] MEDS: PANTOPRAZOLE SODIUM IV 40 MG VIAL IV PUSH ×2 (10:04→21:16)
[2019-09-01] MEDS: DORZOLAMIDE/TIMOLOL OPHTH SOL 10 ML BOTTLE 1 DROP EACH EYE ×2 (10:04→21:16)
[2019-09-01] MEDS: METOPROLOL SUCCINATE EXT REL 100 MG TABCR PO ×2 (10:04→21:28)
[2019-09-01] MEDS: MORPHINE SULFATE 4 MG/ML INJ IV PUSH ×3 (10:05→18:25)
[2019-09-01 12:26] LABS: Glucose Point of Care 202 (65-105)
--- NOTE | 2019-09-01 13:24 | WPDANESEPP ---
Anes - Eval Pre Procedure Procedure: Operation Date: 09/01/19 14:30 Proposed Procedures p Takedown Gastrocutaneous Fistula - Herbert Vogel DO Date/Time: 09/01/19 13:24 Pre Op Diagnosis: Abd pain/g tube site complication Patient Data Age: 83 Gender: M Height: 5 ft 11 in Weight: 84.9 kg Last Vital Signs Temp 97.1 F L 09/01/19 06:00 Pulse 75 09/01/19 10:04 Resp 16 09/01/19 06:00 BP 131/65 09/01/19 06:00 Pulse Ox 100 09/01/19 06:00 Allergies Allergy/AdvReac Type Severity Reaction Status Date / Time amlodipine Allergy Unknown Swelling Verified 08/26/19 13:28 Home Medications Medication Instructions Recorded Confirmed Type calcium carbonate [Calcium 600] 600 mg PO DAILY 06/18/19 08/26/19 History cholecalciferol (vitamin D3) 1,000 unit PO DAILY 06/18/19 08/26/19 History [Vitamin D3] dorzolamide-timolol 1 drp OPHTHALMIC (EYE) BID 06/18/19 08/26/19 History folic acid 1 mg PO DAILY 06/18/19 08/26/19 History levothyroxine 125 mcg PO DAILY 06/18/19 08/26/19 History metoprolol succinate 100 mg PO BID 06/18/19 08/26/19 History multivitamin 1 tablet PO DAILY 06/18/19 08/26/19 History hydrocodone 7.5 mg-acetaminophen 15 ml PO Q6H PRN #250 ml 07/22/19 08/26/19 Rx 325 mg/15 mL oral solution acetaminophen [Mapap Extra 1,000 mg PO Q6H PRN 08/26/19 08/26/19 History Strength] aspirin [Aspirin Low Dose] 81 mg PO DAILY 08/26/19 08/26/19 History atorvastatin [Lipitor] 10 mg PO DAILY 08/26/19 08/26/19 History metformin 500 mg PO BID 08/26/19 08/26/19 History methotrexate (PF) 10 mg SUBCUT WEEKLY 08/26/19 08/26/19 History tofacitinib [Xeljanz XR] 11 mg PO DAILY 08/26/19 08/26/19 History tramadol 50 mg PO TID PRN 08/26/19 08/26/19 History warfarin 4 mg PO DAILY 08/26/19 08/26/19 History Laboratory Tests 08/31/19 08/31/19 09/01/19 18:02 23:57 05:49 WBC 3.9 K/mm3 L K/mm3 (4.5-10.0) RBC 2.89 M/mm3 L M/mm3 (4.6-6.20) Hgb 9.2 g/dL L g/dL (14.0-18.0) Hct 28.0 % L % (42.0-52.0) MCV 96.9 fl fl (80-100) MCH 31.8 pg pg (26-34) MCHC 32.9 g/dl g/dl (32-36) RDW 15.8 % H % (11.5-14.5) Plt Count 88 k/mm3 L k/mm3 (150-375) MPV 10.6 fl H fl (7.4-10.4) Immature Gran % (Auto) 5.6 % H % (0-0.5) Neut % (Auto) 72.8 % % (45.5-73.1) Lymph % (Auto) 5.4 % L % (18.3-44.2) Lea % (Auto) 15.6 % H % (2.6-8.5) Eos % (Auto) 0.3 % % (0-4.4) Baso % (Auto) 0.3 % % (0.2-1.2) Lymph # (Auto) 0.21 K/mm3 L K/mm3 (0.9-3.2) Lea # (Auto) 0.6 K/mm3 K/mm3 (0.1-0.6) Eos # (Auto) 0.0 K/mm3 K/mm3 (0-0.3) Baso # (Auto) 0.0 K/mm3 K/mm3 (0.0-0.1) Abs Immat Gran (auto) 0.22 K/mm3 H K/mm3 (0.00-0.031) Absolute Neuts (auto) 2.9 K/mm3 K/mm3 (1.3-6.7) Absolute Nucleated RBC 0.0 K/mm3 K/mm3 (0.0-0.012) Nucleated RBC % 0.0 % % (0.0-0.2) Platelet Estimate Decreased (Adequate) Polychromasia 1+ (NORMAL) Hypochromasia 2+ (NORMAL) Tear Drop Cells 2+ (NORMAL) Ovalocytes 2+ (NORMAL) Crenated Cell 2+ (NORMAL) Schistocytes 1+ (NORMAL) PT INR APTT Sodium Potassium Chloride Carbon Dioxide BUN Creatinine Estim Creat Clear Calc Estimated GFR Glucose POC Capillary Glucose 161 mg/dl H mg/dl 189 mg/dl H mg/dl (65-105) (65-105) Calcium Phosphorus Magnesium Transferrin Total Bilirubin AST ALT Alkaline Phosphatase Total Protein Albumin Triglycerides 09/01/19 09/01/19 09/01/19 05:49 05:49 05:49 WB
[2019-09-01 14:00] VITALS: BP 122/62; PULSE 68; RESP 16; TEMP 36.7; O2SAT 99
[2019-09-01 17:19] LABS: Glucose Point of Care 138 (65-105)
[2019-09-01] MEDS: FAT EMULSIONS IV 20% 250 ML 20.8 ML IVPB (18:22)
[2019-09-01 21:20] VITALS: BP 132/75; PULSE 80; RESP 16; TEMP 36.3; O2SAT 100
[2019-09-01 21:28] VITALS: PULSE 74
[2019-09-02 00:07] LABS: Glucose Point of Care 146 (65-105)
[2019-09-02] MEDS: MORPHINE SULFATE 4 MG/ML INJ IV PUSH (03:43)
[2019-09-02 05:14] VITALS: BP 143/66; PULSE 57; RESP 16; TEMP 36.1; O2SAT 97
[2019-09-02] MEDS: LEVOTHYROXINE SODIUM 125 MCG TABLET PO (05:31)
[2019-09-02 05:37] LABS: Glucose Point of Care 199 (65-105)
[2019-09-02 05:51] LABS: Blood Urea Nitrogen 24 mg/dL (9-20); Carbon Dioxide 23 mmol/L (22-30); Chloride 101 mmol/L (98-107); Estimated CRCL calculation 87 ml/min; Estimated Glomerular Filt Rate > 60; Glucose 228 mg/dL (75-110); Phosphorus 3.7 mg/dL (2.5-4.5); Potassium 3.9 mmol/L (3.4-5.0); Sodium 135 mmol/L (137-145)
[2019-09-02 09:32] LABS: INR 1.2; Prothrombin Time 14.8 Seconds (11.1-14.7)
[2019-09-02] MEDS: DORZOLAMIDE/TIMOLOL OPHTH SOL 10 ML BOTTLE 1 DROP EACH EYE (09:51)
[2019-09-02 09:53] VITALS: PULSE 72
[2019-09-02] MEDS: METOPROLOL SUCCINATE EXT REL 100 MG TABCR PO (09:53)
[2019-09-02] MEDS: ATORVASTATIN 10 MG TABLET PO (09:53)
[2019-09-02] MEDS: metFORMIN HCL 500 MG TABLET PO (09:54)
[2019-09-02] MEDS: PANTOPRAZOLE SODIUM IV 40 MG VIAL IV PUSH (09:54)
[2019-09-02] MEDS: ASPIRIN 81 MG ENTERIC TABLET PO (09:54)
[2019-09-02 13:03] LABS: Glucose Point of Care 165 (65-105)
--- NOTE | 2019-09-02 13:15 | PCDIET ---
Addendum entered by Kusum Barbosa RD, LDN 09/02/19 14:57: TPN has been discontinued. Ensure enlive provides 350 kcals and 20g of protein per serving. Original Note: Nutrition Follow-Up Complete: Inadequate Protein Energy Intake as related to Esophageal Cancer as evidenced by weight loss of > 20% in 3 months. advance diet as tolearted per MD orders- intake at least 75% of meals. Goal met. Pt has advanced to Full liquid diet + Ensure Enlive TID Nutrition recommendation: Continuation of Full Liquid diet and Ensure Enlive TID, as tolerated, to provide pt with adequate nutrition. Last recorded weight is 86.4 kg. Bowel Motility: +BM 09/02 Labs Reviewed: Na(135), K(3.9), BUN(24), Cr(0.6), Glu(228) Meds Noted:Lipitor, metformin, zofran, coumadin Additional Notes: Pt states that he is tolerating liquids well so far; no nausea reported. States he had a slight discomfort on left abdominal side but said it only lasted temporarily and was never painful. As of this morning he was able to have ice water, pepsi, cream of wheat, decaf coffee, pudding, and applesauce with meds. Will monitor every Sunday and Sunday.
[2019-09-02 14:00] VITALS: BP 102/57; PULSE 80; RESP 18; TEMP 36.2; O2SAT 99
--- NOTE | 2019-09-02 14:29 | PM.DS ---
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: Code(s): K31.6 - Fistula of stomach and duodenum Status: Acute (2) Esophageal cancer, stage IV: Code(s): C15.9 - Malignant neoplasm of esophagus, unspecified Status: Acute (3) Dysphagia: Qualifiers: Dysphagia type: esophageal phase Qualified Code(s): R13.10 - Dysphagia, unspecified Code(s): R13.10 - Dysphagia, unspecified Status: Acute (4) Protein calorie malnutrition: Qualifiers: Protein-calorie malnutrition severity: mild Qualified Code(s): E44.1 - Mild protein-calorie malnutrition Code(s): E46 - Unspecified protein-calorie malnutrition Status: Acute (5) Atrial fibrillation: Code(s): I48.91 - Unspecified atrial fibrillation Status: Acute DS: Summary Hospital Course Reason for hospitalization: gastro-cutaneous fistula Hospital Course: this is an 83-year-old man who presented with gastric drainage from his previous G-tube site. He had a G-tube placed for significant dysphagia secondary to esophageal cancer. After receiving radiation and chemotherapy, his dysphagia improved and the G-tube was due to be removed. The G-tube was removed in my office on 08/22/2018. Over the next several days at home, the patient noted significant drainage from the G-tube site. Any time he would drink liquids or move he would get a spurt of liquid from the site and would also have a lot of gas drainage. He was then admitted for further management. He was kept NPO and was started on TPN. He was also started on Protonix IV to help limit gastric secretions. An ostomy bag was placed over the gastric cutaneous fistula to help contain drainage and prevent skin irritation. Over the course of several days, the drainage did appear to slowly taper off. Discussion was made with the patient about surgical options to take down the fistula and close the stomach to prevent continued drainage. Drainage continued to decrease to very minimal drainage daily. An upper GI contrast study was obtained on 09/01. This showed no evidence of contrast extravasation or persistent fistulous opening. Surgery was withheld, and patient was then started on a full liquid diet. He seemed to tolerate the diet well without any signs of increased drainage. His TPN was then stopped and he was still tolerating a full liquid diet. The ostomy bag was removed and an alginate gauze dressing was then applied. Discussions were made with the patient about physical therapy to increase his strength before discharge, but patient felt strong enough to tolerate activity at home. Status at Discharge Functional status at discharge: uses cane/walker Overall status at discharge: patient is progressing back to baseline Time Spent with Patient Time attestation: Total time spent providing and/or coordinating discharge services: Time spent: Greater than 30 minutes Exam Const: General: no acute distress Eyes: General: appearance normal, both eyes and all related structures Neck: Neck: supple and no JVD Resp: Effort & Inspection: normal respiratory effort Auscultation: clear to auscultation bilaterally Cardio: Rate: regular rate Rhythm: abnormal rhythm irregularly irregular GI: GI Palp: Yes Soft to palpation, No Tenderness to palpation present (GI) and No Guarding due to palpation present (GI) Percussion: Yes normal to percussion Auscultation: normal bowel sounds Other: G-tube site nearly completely closed. 5 mm x 10 mm opening with minimal scant yellowish drainage. Skin: General skin exam: normal color Extrem: General: normal to inspection DS: Data Data Completed and Pending Labs on day of discharge: Labs from last 24 hours 09/02/19 09/02/19 09/02/19 12:06 09:04 05:35 PT 14.8 H INR 1.2 Sodium Potassium Chloride Carbon Brock
--- NOTE | 2019-09-02 14:34 | PC.NURSE ---
Dr. Vogel is still okay with patient going home with only outpatient therapies ordered.
[2019-09-02] MEDS: HEPARIN SOD FLUSH 500 UNITS/5 ML SYRINGE IV PUSH (16:19)
== END 2019-09-02 16:36 | disposition home or self-care (01) | DRG 394 ==
LOC: ANHED 15:37 → ANH3MED 16:29
PROVIDERS: Surgery; Admitting Provider Surgery; Emergency Provider Emergency Medicine; PCP Internal Medicine; Visit Provider Surgery
DX: K94.29 Other complications of gastrostomy (principal); C15.9 Malignant neoplasm of esophagus, unspecified; K31.6 Fistula of stomach and duodenum; E44.1 Mild protein-calorie malnutrition; Z92.21 Personal history of antineoplastic chemotherapy; I48.91 Unspecified atrial fibrillation; I25.10 Atherosclerotic heart disease of native coronary artery without angina pectoris; I25.2 Old myocardial infarction; Z95.5 Presence of coronary angioplasty implant and graft; Z95.0 Presence of cardiac pacemaker; M06.9 Rheumatoid arthritis, unspecified; C44.90 Unspecified malignant neoplasm of skin, unspecified; Z89.429 Acquired absence of other toe(s), unspecified side; Z98.49 Cataract extraction status, unspecified eye; Z87.891 Personal history of nicotine dependence; E86.0 Dehydration; I10 Essential (primary) hypertension; E11.9 Type 2 diabetes mellitus without complications; Z68.26 Body mass index [BMI] 26.0-26.9, adult; R33.9 Retention of urine, unspecified; E78.00 Pure hypercholesterolemia, unspecified; E03.9 Hypothyroidism, unspecified; Z92.3 Personal history of irradiation
CPT/HCPCS: 36415; 74177; 74246; 80048; 80053; 81001; 83690; 83735; 84100; 84466; 84478; 85025; 85610; 85730; 87040; 96361; 96365; 96374; 96375; 96376; 97165; 99285; A9270; C9113; G0378; J1815; J2270; J2405; J3480; J7030; Q9967

== ENCOUNTER 2019-09-09 13:13 | Inpatient (IN) | payer MEDICARE, SELFPAY ==
--- NOTE | ~2019-09-09 | XR_ITS ---
EXAMINATION: XR G tube evaluation w imaging DATE: 09/12/2019 09:26 INDICATION: Gastrostomy tube replacement. TECHNIQUE: An upright view of the abdomen was obtained. COMPARISON: CT abdomen and pelvis 08/26/2019 FINDINGS: The lower abdomen is excluded. There are no dilated loops of bowel. The gastrostomy tube is in expected position in the body of the stomach. There is contrast in the tube and in the stomach an d colon. There is a central venous catheter tip in superior vena cava. There is a pacer wire in right ventricle. IMPRESSION: 1. Gastrostomy tube in expected position. Reviewed, dictated and finalized at location A. R[employer] WRECKING [employer] SALVAGING
--- NOTE | ~2019-09-09 | XR_ITS ---
EXAMINATION: XR foot LT min 3V DATE: 09/09/2019 14:41 INDICATION: Heel wound TECHNIQUE: Dorsoplantar, two oblique and lateral views of the left foot were obtained. COMPARISON: None. FINDINGS: Bandaging material posterior to the heel. Amputation of the second toe at the level of the metatarsop halangeal joint. Bone alignment is normal. No fracture. No cortical erosions or periosteal reaction t o suggest osteomyelitis. Moderate-sized plantar calcaneal spur. Additional enthesophytes along the me dial margin of the medial malleolus. Moderate osteoarthritis at the first metatarsophalangeal joint. Remaining joint spaces are relatively preserved. No left ankle joint effusion. Soft tissue swelling a bout the distal calf, ankle and over the dorsum of the foot. No radiopaque foreign bodies or subcutan eous gas. IMPRESSION: 1. No acute osseous abnormality. Specifically no evident cortical erosions/osteolysis or periosteal r eaction to suggest osteomyelitis. Reviewed, dictated and finalized at location A. H COURT JUDGE IMPRESSION: 1. No acute osseous abnormality. Specifically no evident cortical erosions/oste olysis or periosteal reaction to suggest osteomyelitis.
--- NOTE | ~2019-09-09 | XR_ITS ---
XR chest 1V portable DATE: 09/09/2019 14:41 INDICATION: Chest discomfort, shortness of breath. TECHNIQUE: Portable upright AP chest on 09/09/2019 at 1430 hours COMPARISON: 07/07/2019 portable AP chest FINDINGS: Right Port-A-Cath catheter tip overlying superior vena cava. Left-sided pacemaker with righ t ventricular pacemaker lead. Heart size is within normal range. There is aortic calcification and mild tortuosity. No hilar or med iastinal enlargement. There is mild atelectasis at the right lung base. The lungs otherwise appear clear. Old pulmonary gra nulomatous disease. No pleural effusion or pulmonary vascular congestion or pneumothorax. Radiopaque material is noted within the splenic flexure the colon apparently. IMPRESSION: No active cardiopulmonary disease Right Port-A-Cath Left pacemaker device Reviewed, dictated and finalized at location B. TEACHER
--- NOTE | ~2019-09-09 | US_ITS ---
EXAMINATION: US retroperitoneal comp EXAM DATE: 09/11/2019 09:42 INDICATION: Abnormal kidney function. TECHNIQUE: Multiple grayscale and Doppler images of the kidneys were obtained (by a technologist who performed the scan) and subsequently reviewed. There is no prior study for comparison. FINDINGS: Right kidney: There is normal contour and echogenicity. It measures 12.9 x 6.2 x 6.5 centimeters. An echoic region with increased through transmission lower pole measuring 2 cm consistent with cyst. T here is no hydronephrosis. Left kidney: There is normal contour and echogenicity. It measures 11.7 x 5.9 x 5.2 centimeters. Th ere are no focal renal lesions identified. There is no hydronephrosis. Licea catheter within collapsed bladder. IMPRESSION: 1. No hydronephrosis. Reviewed, dictated and finalized at location A. CLE REPAIRMAN IMPRESSION: 1. No hydronephrosis.
--- NOTE | ~2019-09-09 | US_ITS ---
EXAMINATION: US venous doppler [facility] DATE: 09/11/2019 10:21 INDICATION: Right lower limb edema. TECHNIQUE: Grayscale ultrasound images without and with compression and Doppler ultrasound images of the bilateral lower extremity veins were obtained. COMPARISON: None. FINDINGS: The visualized portions of right common femoral vein, femoral vein, popliteal vein, peroneal veins, p osterior tibial veins, and greater saphenous vein outflow are patent. There is thrombus in right prof unda femoral vein. The visualized portions of left common femoral vein, profunda femoral vein, femoral vein, popliteal v ein, peroneal veins, posterior tibial veins, and greater saphenous vein outflow are patent. IMPRESSION: 1. Deep vein thrombosis involving right profunda femoral vein. I called this result to Dr. Shelton on 09/11/19 at 10:28 AM. Reviewed, dictated and finalized at location A. ICAL INFORMATICS PHYSICIAN IMPRESSION: 1. Deep vein thrombosis involving right profunda femoral vein. I called this r esult to Dr. Shelton on 09/11/19 at 10:28 AM.
[2019-09-09 13:11] VITALS: BP 110/63; PULSE 79; RESP 18; TEMP 36.3; O2SAT 100
--- NOTE | 2019-09-09 13:16 | ED.ABDPAIN ---
HPI - Abdominal Pain General Chief Complaint: Abdominal Pain Stated Complaint: old gtube site leaking Time Seen by Provider: 09/09/19 13:13 Source: patient, family and RN notes reviewed Mode of arrival: EMS Limitations: no limitations History of Present Illness HPI narrative: Pt is an 83 y/o male who presents to the ED, via EMS, with c/o leaking from a prior G-tube that began two days ago (09/07/19), but has not resolved. Pt's spouse states the pt's site began leaking after he fell out of his bed and had trouble getting back up. Pt's spouse states that the wound on his heel looked like a blood blister, but after the pt had trouble getting up after his fall, the skin ripped off the bottom of his heel. Pt has a hx of esophageal cancer that was dx in March [address] Bedolla. Pt's cancer is inoperable. Pt recently finished his radiation therapy, but he has not finished his chemotherapy d/t him not feeling well. Pt had a G-tube placed for his cancer. Pt states the site leaked about two weeks ago and he went to the ED for evaluation. Pt also has a fistula on the left side of his abdomen and a bed sore on his bottom. Pt's spouse states that he had these sores when he was in the ED previously. Pt's spouse has been changing his dressings three times a day and she changes the gauze in his fistula every day. She states that she has been applying Desitin cream to his bed sore on his bottom. Pt has been eating Ensure, cream soup, and chicken noodle soup broth. He notes that after he eats he can feel his bladder fill up. He states as soon as he sits down he has the urge to use the bathroom, but he cannot make it to the bathroom in time before urinating on himself. Pt is able to ambulate, but he states that he cannot ambulate very well without the assistance of his spouse. He states that his strength is gone. Pt's spouse states the pt has not been checking his blood glucose levels. Pt also reports esophageal pain, BLE swelling, poor appetite, and urinary incontinence, but denies a fever, and ABD pain. Pt is taking Warfarin and ASA 81 mg daily. Pt's oncologist is Dr. Bedolla. Pt's surgeon was Dr. Vogel. MD elicited complaint: other (G-tube site leaking) Onset (ago): day(s) (2) Location: none Associated symptoms: other (esophageal pain, BLE swelling, poor appetite, urinary incontinence) Related Data Home Medications Medication Instructions Recorded Confirmed calcium carbonate [Calcium 600] 600 mg PO DAILY 06/18/19 09/09/19 cholecalciferol (vitamin D3) 1,000 unit PO DAILY 06/18/19 09/09/19 [Vitamin D3] dorzolamide-timolol 1 drp OPHTHALMIC (EYE) BID 06/18/19 09/09/19 folic acid 1 mg PO DAILY 06/18/19 09/09/19 levothyroxine 125 mcg PO DAILY 06/18/19 09/09/19 metoprolol succinate 100 mg PO BID 06/18/19 09/09/19 multivitamin 1 tablet PO DAILY 06/18/19 09/09/19 aspirin [Aspirin Low Dose] 81 mg PO DAILY 08/26/19 09/09/19 metformin 500 mg PO BID 08/26/19 09/09/19 methotrexate (PF) 10 mg WEEKLY 08/26/19 09/09/19 warfarin [Coumadin] 2 mg PO DAILY 09/09/19 09/09/19 Allergies Allergy/AdvReac Type Severity Reaction Status Date / Time amlodipine Allergy Unknown Swelling Verified 08/26/19 13:28 Review of Systems Review of Systems: All systems reviewed & are unremarkable except as noted in HPI and below Constitutional: Constitutional: Denies fever(s) and Reports poor appetite ENT: Reports other (esophageal pain) Cardiovascular: Cardiovascular: Reports leg edema (bilaterally) Gastrointestinal: Gastrointestinal: Denies abdominal pain Genitourinary: Genitourinary: Reports urinary incontinence [facility] Past Medical History Medical History Atrial fibrillation CAD (coronary artery disease) AMI x 3, s/p coronary artery stents Cancer ESOPHAGEAL Cardiac arrhythmia s/p pacemaker Diabetes mellitus Dysphagia Esophageal cancer, stage IV G tube feedings Gastrocutaneous fistula due to gastrostomy tub
--- NOTE | 2019-09-09 13:48 | ECG_ITS ---
Measurements Intervals [place] Rate: 67 P: CO: 0 QRS: -78 QRSD: 205 T: 98 QT: 489 QTc: 518 Interpretive Statements ELECTRONIC VENTRICULAR PACEMAKER BASELINE ARTIFACT- I, II, III, AVL, V1-V2 NO FURTHER INTERPRETATION IS POSSIBLE ATYPICAL ECG Electronically Signed On 09-09-2019 14:03:54 MEDICATION CARE MANAGER by Buzz Alegria D.O.
[2019-09-09 14:08] VITALS: BP 100/66; PULSE 74; RESP 18; O2SAT 100
[2019-09-09] MEDS: MORPHINE SULFATE 4 MG/ML INJ IV PUSH ×2 (14:13→16:43)
[2019-09-09] MEDS: ONDANSETRON INJ 4 MG/2 ML VIAL IV PUSH (14:13)
[2019-09-09 14:25] LABS: Alanine Aminotransferase 16 U/L (4-50); Albumin Level 2.7 g/dL (3.5-5.1); Alkaline Phosphatase 112 U/L (38-126); Aspartate Amino Transferase 15 U/L (17-59); Bilirubin,Total 0.6 mg/dL (0.2-1.3); Blood Urea Nitrogen 59 mg/dL (9-20); Carbon Dioxide 23 mmol/L (22-30); Chloride 97 mmol/L (98-107); Estimated CRCL calculation 29 ml/min; Estimated Glomerular Filt Rate 30; Glucose 180 mg/dL (75-110); Magnesium 1.9 mg/dL (1.6-2.3); Potassium 4.3 mmol/L (3.4-5.0); Sodium 135 mmol/L (137-145)
[2019-09-09 14:26] LABS: Lactic Acid Reflex 2.2 mmol/L (0.7-2.1)
[2019-09-09 14:28] LABS: Prothrombin Time 22.6 Seconds (11.1-14.7)
[2019-09-09 14:29] LABS: Partial Thromboplastin Time 50.5 SECONDS (22.3-36.8)
[2019-09-09 14:34] LABS: NT Pro B Type Natriuretic Pept 10100 PG/ML (5-100)
[2019-09-09 14:43] VITALS: BP 113/60; PULSE 74; RESP 15; O2SAT 100
--- NOTE | 2019-09-09 14:55 | PC.NURSE ---
pt turned and rotated at this time, meplex has arrived from central supply and is initialed and dated and placed on pt coccyx.
[2019-09-09] MEDS: LACTATED RINGERS 1,000 ML 999 ML IV CONT (14:58)
[2019-09-09 15:07] LABS: Hematocrit 29.7 % (42.0-52.0); Hemoglobin 9.8 g/dL (14.0-18.0); Immature Platelet Fraction Pct 4.4 % (0.9-11.2); Mean Platelet Volume 11.6 fl (7.4-10.4); Platelet Count Result 67 k/mm3 (150-375); Red Blood Count 3.16 M/mm3 (4.6-6.20); Red Cell Distribution Width 16.8 % (11.5-14.5); White Blood Count 10.8 K/mm3 (4.5-10.0)
[2019-09-09 15:36] LABS: Platelet Estimate Adequate (Adequate)
[2019-09-09 15:37] LABS: Platelet Clumps Present
[2019-09-09 15:57] LABS: Add Urine Microscopic? YES; Appearance Urine Clear (Clear); Bacteria Urine Trace /hpf; Bilirubin Urine Negative (Negative); Blood Urine 1+ (Negative); Color Urine Yellow (Yellow); Glucose Urine UA Negative (Negative); Ketones Urine Negative (Negative); Leukocyte Esterase Ur 1+ LEU/UL (Negative); Nitrate Urine Negative (Negative); Protein Urine 1+ mg/dL (Negative); RBC Urine 0-2 /hpf (0-2); Urobilinogen Urine Negative mg/dL (<2.0); WBC Urine 21-30 /hpf
--- NOTE | 2019-09-09 16:28 | PM.CNGS ---
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 He seemed to be improving with the output from his G-tube site when he was last discharged. Now there is increased drainage suggesting that the fistula is remaining intact. Will keep patient NPO currently. I will ask wound care nurses to see patient again tomorrow for possible ostomy appliance for replacement. He may need TPN again for continued nutrition. His overall condition is continuing to slowly decline, likely related to his cancer and difficulties with gaining adequate nutrition. (2) Esophageal cancer, stage IV: Code(s): C15.9 - Malignant neoplasm of esophagus, unspecified Status: Acute History of Present Illness Consult details Consult date: 09/09/19 Narrative: This is an 83-year-old man who presented to the emergency department today with weakness and fatigue. He has been dealing with drainage from his G-tube site. He has esophageal cancer and previously underwent open gastrostomy tube placement. This was subsequently removed when he no longer required it. After the G-tube was removed, he continued to have persistent drainage from the G-tube site. He was admitted and placed NPO to allow time for the G-tube to heal. The fistula tract appeared to be nearly completely healed and he was having minimal drainage. He was able to tolerate a full liquid diet without any significant increase in the drainage. He was then discharged home. For about 4 days he was having minimal drainage from the site, but over the last 3 days he has noticed drainage with anything he drank. He has tried to minimize how much he is eating /drinking to decrease the amount of drainage, but this has also caused him to become very weak. Review of Systems Constitutional: Constitutional: Denies fever(s), Reports lethargy, Reports poor appetite and Reports weakness ENT: Reports dry mouth and Reports odynophagia Cardiovascular: Cardiovascular: Denies chest pain and Denies dyspnea Respiratory: Respiratory: Denies chest congestion and Denies cough Gastrointestinal: Gastrointestinal: Reports as per HPI Genitourinary: Genitourinary: Reports urinary hesitancy Musculoskeletal: Musculoskeletal: Reports back pain and Reports other ( Sacral pain) Integumentary/Breasts: Skin/Breast: Reports as per HPI Neurologic: Reports weakness Psychiatric: Psychiatric: Reports no additional psychiatric complaints Endocrine: Endocrine: Reports no additional endocrine complaints [facility] Past Medical History Medical History Atrial fibrillation CAD (coronary artery disease) AMI x 3, s/p coronary artery stents Cancer ESOPHAGEAL Cardiac arrhythmia s/p pacemaker Diabetes mellitus Dysphagia Esophageal cancer, stage IV G tube feedings 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 HTN (hypertension) Hypercholesterolemia Hypothyroidism Pacemaker Protein calorie malnutrition Rheumatoid arthritis Skin cancer Surgical History Surgical History Amputated toe Cataract Pacemaker 2012 Family History Family History Other No family history of cancer No family history of cardiac disease Social History Social History Smoking packs per day: 2.5 Smoking cigarettes per day: 50.0 Years smoked: 35 Smoking pack-years: 87.50 Smoking status: Former smoker Tobacco type: cigarettes Smoking end date: 08/23/88 Alcohol intake: never Substance use: never Gender identity (if verbalized by the patient): Male Spiritual care concerns: No Agree to blood product
[2019-09-09 16:47] VITALS: BP 131/67; PULSE 69; RESP 18; O2SAT 100
[2019-09-09 17:11] LABS: Reflex Lactic Acid Yes or No Add Lactic
[2019-09-09 17:30] VITALS: BMI 23.6
[2019-09-09 17:40] LABS: Lactic Acid 1.6 mmol/L (0.7-2.1)
[2019-09-09 17:53] VITALS: BP 126/63; PULSE 67; RESP 16; O2SAT 100
--- NOTE | 2019-09-09 18:21 | ADMGEN ---
This patient, Miguel Cruz, was admitted to Medical Room 250-01. Patient/family oriented to hospital policies and general routines including ID bracelet, bed and alarms, visiting hours, pain management, procedures, bathroom and other care routines, personal items, smoking policy, room service/diet, and visiting hours. Valuables list has been completed. Information on how to activate the Rapid Response Team has been discussed. Patient/Family are encouraged to report perceived risks to care and to ask questions if they do not understand what they are told or what they should do.
[2019-09-09] MEDS: LACTATED RINGERS 1,000 ML 125 ML IV CONT (21:34)
[2019-09-09 21:44] LABS: Glucose Point of Care 93 (65-105)
[2019-09-09 22:00] VITALS: BP 109/53; PULSE 65; RESP 18; TEMP 36.6; O2SAT 96
[2019-09-10 05:08] LABS: Basophils Percent Auto 0.1 % (0.2-1.2); Eosinophils Percent Auto 0.1 % (0-4.4); Hematocrit 26.8 % (42.0-52.0); Hemoglobin 8.7 g/dL (14.0-18.0); Immature Granulocyte Absolute 0.13 K/mm3 (0.00-0.031); Immature Granulocyte Percent A 1.6 % (0-0.5); Immature Platelet Fraction Pct 3.9 % (0.9-11.2); Lymphocytes Absolute Auto 0.15 K/mm3 (0.9-3.2); Lymphocytes Percent Auto 1.8 % (18.3-44.2); Mean Corpuscular HGB Conc 32.5 g/dl (32-36); Mean Corpuscular Hemoglobin 30.9 pg (26-34); Monocytes Absolute Auto 0.3 K/mm3 (0.1-0.6); Monocytes Percent Auto 3.1 % (2.6-8.5); Neutrophils Absolute Auto 7.8 K/mm3 (1.3-6.7); Neutrophils Percent Auto 93.3 % (45.5-73.1); Platelet Count Result 57 k/mm3 (150-375); Red Blood Count 2.82 M/mm3 (4.6-6.20); White Blood Count 8.3 K/mm3 (4.5-10.0)
[2019-09-10 05:26] LABS: Alanine Aminotransferase 12 U/L (4-50); Albumin Level 2.3 g/dL (3.5-5.1); Alkaline Phosphatase 98 U/L (38-126); Aspartate Amino Transferase 14 U/L (17-59); Bilirubin,Total 0.5 mg/dL (0.2-1.3); Blood Urea Nitrogen 54 mg/dL (9-20); Calcium 7.9 mg/dL (8.4-10.2); Carbon Dioxide 25 mmol/L (22-30); Chloride 100 mmol/L (98-107); Estimated CRCL calculation 32 ml/min; Estimated Glomerular Filt Rate 34; Glucose 79 mg/dL (75-110); Potassium 4.4 mmol/L (3.4-5.0); Sodium 138 mmol/L (137-145)
[2019-09-10 05:29] LABS: Macrocytosis 1+ (NORMAL); Platelet Estimate Decreased (Adequate)
[2019-09-10 05:30] LABS: Ovalocytes 1+ (NORMAL)
[2019-09-10 06:00] VITALS: BP 127/56; PULSE 68; RESP 21; TEMP 37.6; O2SAT 100
[2019-09-10] MEDS: MORPHINE SULFATE 2 MG/ML INJ IV PUSH ×3 (08:50→16:57)
[2019-09-10] MEDS: LACTATED RINGERS 1,000 ML 75 ML IV CONT (08:51)
--- NOTE | 2019-09-10 10:32 | PM.PNGS ---
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 Consulted the wound care nurse to see the patient and apply an ostomy appliance of the fistula. Will keep the patient NPO again today and start Clinimix for continued nutrition while NPO. (2) Esophageal cancer, stage IV: Code(s): C15.9 - Malignant neoplasm of esophagus, unspecified Status: Acute Additional Plan Discussed plan of care with Dr. Vogel today. Subjective Subjective Date/Time Seen: 09/10/19 08:45 Patient reports: still having pain (throat pain and buttock pain from pressure ulcers) Interval history: Patient seen and examined. Main complaint is throat pain and discomfort in his buttocks from pressure ulcers. Denies nausea or vomiting. Denies abdominal pain. Reports feeling tired and weak. No other complaints at this time. Review of Systems Review of Systems: All systems reviewed & are unremarkable except as noted in HPI and below Exam Const: General: no acute distress, alert, awake and uncomfortable Orientation/consciousness: patient oriented x3 GI: Inspection: non-distended GI Palp: Yes Soft to palpation, No Tenderness to palpation present (GI) and No Guarding due to palpation present (GI) Auscultation: normal bowel sounds Other: Left upper abdomen dressing with small amount of gastric drainage noted and removed. There is a 1 cm opening from prior G-tube site in the LUQ with minimal surrounding superficial skin irritation. Skin: General skin exam: pallor Neuro: General: no focal motor deficits Psych: Mental Status: mental status grossly normal Affect: Sad affect present Objective Data Vital Signs Vital Signs: Vital Signs - 24 hr 09/09/19 13:11 09/09/19 14:08 09/09/19 14:43 Temperature 36.3 C L Pulse Rate 79 74 74 Respiratory Rate 18 18 15 Blood Pressure 110/63 100/66 113/60 Pulse Oximetry 100 100 100 09/09/19 16:47 09/09/19 17:53 09/09/19 22:00 Temperature 36.6 C Pulse Rate 69 67 65 Respiratory Rate 18 16 18 Blood Pressure 131/67 126/63 109/53 L Pulse Oximetry 100 100 96 09/10/19 06:00 Temperature 37.6 C Pulse Rate 68 Respiratory Rate 21 H Blood Pressure 127/56 L Pulse Oximetry 100 Intake/Output Intake/Output: Intake & Output 09/07/19 09/08/19 09/09/19 09/10/19 23:59 23:59 23:59 23:59 Intake Total 1050 1000 Output Total 900 Balance 1050 100 Meds/Results Medications: Active Medications Generic Name Dose Route Start Last Admin Trade Name Freq PRN Reason Stop Dose Admin Heparin Sodium (Porcine) 500 units 09/10/19 09:08 Heparin Sod Flush 100 Units/Ml IV PUSH PRN PRN see comments below Lactated Ringer's 1,000 mls @ 75 mls/hr 09/09/19 16:25 09/10/19 08:51 Lr - Lactated Ringers Iv IV CONT 75 mls/hr .[id number] SARIKA Administration Acetaminophen 1,000 mg in 100 mls @ 400 mls/hr 09/10/19 08:13 Ofirmev 1,000 Mg Ivpb IVPB 09/11/19 08:14 Q6H PRN Pain Rated 1-6 Morphine Sulfate 2 mg 09/10/19 08:13 09/10/19 08:50 Morphine Sulfate Inj IV PUSH 2 mg Q4H PRN Administration Pain Rated 7-10 Ondansetron HCl 4 mg 09/09/19 16:21 Zofran Inj IV PUSH Q4H PRN Nausea Radiology Results: ITS Impressions Chest X-Ray 09/09/19 14:42 IMPRESSION: No active cardiopulmonary disease Right Port-A-Cath Left pacemaker device Foot X-Ray 09/09/19 14:54 IMPRESSION: 1. No acute osseous abnormality. Specifically no evident cortical erosions/osteolysis or periosteal reaction to suggest osteomyelitis. Labs Labs: Laboratory Results - last 24 hr 09/09/19 09/09/19 09/09/19 14:09 14:09 14:09 WBC RBC Hgb Hct MCV MCH MCHC RDW Plt Count MPV Immature Gran % (Auto) Slava
[2019-09-10 12:06] VITALS: BMI 23.6
[2019-09-10] MEDS: SILVERGEL (ELTA) 45 ML 1 APPLIC TOPICAL (12:08)
--- NOTE | 2019-09-10 12:27 | PCNFU ---
Nutrition Assessment Complete: Altered GI fxn as related to fistula as evidenced by NPO Meet estimated energy needs Goal: progressing towards goal. Pt current nutrition is NPO. Nutrition recommendation: TPN-Clinamix E 5/15 at 40 ml/hr day 1 advancing to 80 ml/hr day 2 and 250 ml of 20% Lipid Emulsion. Goal rate will provide 1863 kcals and 96 gm protein. meeting 96% of energy needs. Last recorded weight is 83.5 kg. Bowel Motility:none reported at this time. Labs Reviewed:GFR 34,BUN 54,Cr 1.9, Alb 2.3 Will monitor every T/F
[2019-09-10 14:00] VITALS: BP 107/50; PULSE 72; RESP 18; TEMP 37.1; O2SAT 100
--- NOTE | 2019-09-10 16:14 | PM.IMHP ---
H&P: HPI History of Present Illness Chief complaint: acute renal failure/weakness/gastrocutaneous fistu <Kusum Benítez PA-C - Last Filed: 09/11/19 02:28> Narrative: Miguel Cruz is an 83 year old male with PMH significant for stage IV esophageal cancer s/p radiation and chemotherapy, atrial fibrillation on anticoagulation, hypertension, coronary artery disease, HLD, HTN, T2DM, rheumatoid arthritis, and hypothyroidism who presented to the emergency department via EMS with a chief complaint of leaking from the site of a G-tube which was removed 08/22/[address] Vogel. He was recently hospitalized due to draining from the gastrocutaneous fistula. He was treated with TPN to allow for healing. Upper GI series was performed and revealed no extension to the skin.His diet was advanced and he was tolerating liquid diet. He reports that he was trying to get out of his bed and up to his walker when he slid slowly off his mattress because it was off the edge of his box spring. He states that he landed very gently into a seated position. He did not hit his head. He reports that while he was sliding down, his socks slipped and his heel rubbed the carpet causing his skin to tear at the site of his right heel wound. He also reports that the G-tube site started leaking after the fall. This was approximately 4 days ago. He reports decreased appetite and reduced oral intake due to the recurrence of leaking. He states that he has become very weak and is unable to complete his activities of daily living without significant assistance from his . He expresses that he would like to build his strength back. He also reports urinary urgency. He states that it has been difficult for him to go recently. He also complains of increased leg swelling and pain. He states this has been present since his hospitalization. He was diagnosed with esophageal cancer in [address] Bedolla. He received radiation but reports that he was unable to finish chemotherapy because of his recent hospitalizations. He denies abdominal pain, nausea, and vomiting. He denies cough and shortness of breath. He denies headaches. He reports generalized joint pain from his RA. His pain is worst in the morning and improves throughout the day. He denies localized pain. Initial workup in the ED revealed JOSÉ MIGUEL with Cr of 2.1 and BUN 59. 900cc of urine was drained after franklin placement and Cr is improving. Urine output adequate with franklin suggesting post-renal etiology. UA revealed trace CXR was negative for evidence of effusion [place] [address], Albumin is low at 2.7. Dr. Vogel was consulted from the ED. <Kusum Benítez PA-C - Last Filed: 09/11/19 02:28> Review of Systems Review of Systems: Narrative: Constitutional: The pt denies fever. He reports occasional chills. He reports decreased oral intake due to leaking. Eyes: Denies vision change. ENT: Reports dysphagia is still able to swallow. Denies odynophagia. Cardiovascular: Denies palpitations and chest pain. Denies PND and orthopnea. Respiratory: Denies cough and shortness of breath. Denies hemoptysis. Gastrointestinal: Denies abdominal pain, nausea, and vomiting. Denies constipation. Pt reports that his BM was two days ago. Genitourinary: Endorses urgency with difficulty initiating stream. Denies hematuria, dysuria, and frequency. Musculoskeletal: Reports diffuse muscle aches due to his rheumatoid arthritis that are chronic. Skin: Reports pressure wound on the buttock and left heel wound. Neurologic: Denies focal weakness, paresthesias, confusion, and speech change. Reports mild memory loss. Hematologic: Reports easy bruising. Denies bleeding. <Kusum Benítez PA-C - Last Filed: 09/11/19 02:28> All systems reviewed & are unremarkable except as noted in HPI and below <Kusum Benítez PA-C - Last Filed: 09/11/19 02:28> [facility] Past Medical History Medical History: Medical History (Reviewed 09/10/19
[2019-09-10] MEDS: FAT EMULSIONS IV 20% 250 ML 20.8 ML IVPB (17:10)
[2019-09-10 19:00] LABS: Glucose Point of Care 75 (65-105)
[2019-09-10 21:05] LABS: Glucose Point of Care 119 (65-105)
[2019-09-10 22:00] VITALS: BP 118/50; PULSE 71; RESP 18; TEMP 35.9; O2SAT 99
[2019-09-11] VITALS (9 sets, daily range): BP systolic 110–124; BP diastolic 51–54; PULSE 64–72; RESP 18–20; TEMP 35.8–36.4; O2SAT 95–98
--- NOTE | 2019-09-11 | ECHO_ITS ---
Patient Info Name: Miguel Cruz Age: 83 years : 1935 Gender: Male Ht: 72 in Wt: 184 lbs BSA: 2.07 m2 HR: 80 bpm BP: 124 / 52 mmHg Heart Rhythm: Atrial Fibrillation Technical Quality: Good Exam Date: 09/11/2019 11:12 AM Exam Location: [facility] Card Pulmonary Patient Status: Inpatient Admit Date: 09/09/2019 Staff Ordering Physician: Kusum Benítez PA-C Text Transcriber: Beni Carballo RDCS, RT Attending Provider: Kusum Benítez PA-C Referring Physician: Jackelin DONOVAN; Exam Type: CA echo doppler color flow Study Info Indications R60.1 - Generalized edema Complete two-dimensional, color flow and Doppler transthoracic echocardiogram is performed. Summary 1. Normal left ventricular size and function with no segmental wall motion abnormalities. The visual ejection fraction is 60-65%. The global longitudinal strain is -11%, moderately reduced, suggesting early systolic dysfunction. Diastolic dysfunction is indeterminate. 2. Right ventricular chamber dimension is mildly enlarged with normal systolic function.. 3. Left atrial chamber dimension is moderately enlarged. 4. Right atrial chamber dimension is moderately enlarged. 5. There is moderate mitral valve regurgitation. 6. There is moderate eccentric tricuspid valve regurgitation. 7. Moderate pulmonary hypertension, estimated pulmonary arterial systolic pressure is 60 mmHg. 8. There is mild aortic atherosclerosis. 9. Dilated inferior vena cava with no collapse upon inspiration consistent with significantly elevated right atrial pressure, 20 mmHg. 10. Atrial fibrillation. Left Ventricle Left ventricular chamber dimension is normal. Left ventricular systolic function is normal, estimated at 60-65%. There is mildly increased left ventricular wall thickness. Left ventricular septal wall motion is normal. The left ventricular diastolic function is normal. Global longitudinal strain is moderately elevated at 11 %. Normal left ventricular size and function with no segmental wall motion abnormalities. The visual ejection fraction is 60-65%. The global longitudinal strain is -11%, moderately reduced, suggesting early systolic dysfunction. Diastolic dysfunction is indeterminate. Right Ventricle Right ventricular chamber dimension is mildly enlarged with normal systolic function.. Right ventricular systolic function is normal. Left Atria Left atrial chamber dimension is moderately enlarged. Right Atria Right atrial chamber dimension is moderately enlarged. Aortic Valve The aortic valve is trileaflet. There is moderate aortic valve sclerosis. There is no aortic valve stenosis. There is trace aortic valve regurgitation. Pulmonic Valve The pulmonic valve is normal. There is no pulmonic valve stenosis. There is no pulmonic regurgitation. Mitral Valve The mitral valve has calcified annulus. There is no mitral valve stenosis. There is moderate mitral valve regurgitation. Tricuspid Valve The tricuspid valve leaflets are normal. There is no significant tricuspid valve stenosis. There is moderate eccentric tricuspid valve regurgitation. Moderate pulmonary hypertension, estimated pulmonary arterial systolic pressure is 60 mmHg. Pericardium/Pleural The pericardium appears normal. There is no pericardial effusion. Inferior Vena Cava Dilated inferior vena cava with no collapse upon inspiration consistent with significantly elevated right atrial pressure, 20 mmHg. Aorta The aortic root
[2019-09-11 00:08] LABS: Glucose Point of Care 156 (65-105)
[2019-09-11] MEDS: MORPHINE SULFATE 2 MG/ML INJ IV PUSH ×8 (00:11→23:32)
[2019-09-11 05:13] LABS: Basophils Percent Auto 0.5 % (0.2-1.2); Hematocrit 25.3 % (42.0-52.0); Hemoglobin 8.1 g/dL (14.0-18.0); Immature Granulocyte Absolute 0.09 K/mm3 (0.00-0.031); Immature Granulocyte Percent A 1.5 % (0-0.5); Lymphocytes Percent Auto 1.6 % (18.3-44.2); Mean Corpuscular Hemoglobin 31.4 pg (26-34); Mean Corpuscular Volume 98.1 fl (80-100); Mean Platelet Volume 11.4 fl (7.4-10.4); Monocytes Absolute Auto 0.2 K/mm3 (0.1-0.6); Monocytes Percent Auto 2.6 % (2.6-8.5); Neutrophils Absolute Auto 5.8 K/mm3 (1.3-6.7); Neutrophils Percent Auto 93.8 % (45.5-73.1); Platelet Count Result 52 k/mm3 (150-375); Red Blood Count 2.58 M/mm3 (4.6-6.20); Red Cell Distribution Width 17.2 % (11.5-14.5); White Blood Count 6.2 K/mm3 (4.5-10.0)
[2019-09-11 05:15] LABS: Triglycerides 350 mg/dL (<150)
[2019-09-11 05:17] LABS: INR 2.3; Prothrombin Time 24.8 Seconds (11.1-14.7)
[2019-09-11 05:22] LABS: Alanine Aminotransferase 22 U/L (4-50); Albumin Level 2.1 g/dL (3.5-5.1); Alkaline Phosphatase 91 U/L (38-126); Aspartate Amino Transferase 37 U/L (17-59); Bilirubin,Total 0.4 mg/dL (0.2-1.3); Blood Urea Nitrogen 51 mg/dL (9-20); Calcium 7.5 mg/dL (8.4-10.2); Carbon Dioxide 26 mmol/L (22-30); Chloride 102 mmol/L (98-107); Estimated CRCL calculation 34 ml/min; Estimated Glomerular Filt Rate 36; Glucose 224 mg/dL (75-110); Magnesium 2.1 mg/dL (1.6-2.3); Phosphorus 4.9 mg/dL (2.5-4.5); Potassium 3.9 mmol/L (3.4-5.0); Sodium 139 mmol/L (137-145)
[2019-09-11 05:40] LABS: Transferrin < 80 mg/dL (206-381)
[2019-09-11] MEDS: LEVOTHYROXINE SODIUM INJ 100 MCG/5 ML VIAL 62 MCG IV PUSH (06:08)
[2019-09-11] MEDS: INSULIN HUMAN REGULAR (*BKC) 100 UNITS/ML SUB-Q ×4 (06:11→23:35)
[2019-09-11 06:25] LABS: Anisocytosis 2+ (NORMAL); Ovalocytes 1+ (NORMAL); Platelet Estimate Decreased (Adequate)
[2019-09-11 07:28] LABS: Glucose Point of Care 252 (65-105)
[2019-09-11] MEDS: SILVERGEL (ELTA) 45 ML 1 APPLIC TOPICAL (08:40)
--- NOTE | 2019-09-11 11:20 | P.PNIM_ITS ---
Progress Note: A&P Assessment and Plan (1) Right leg DVT: Qualifiers: Affected thrombotic vein of extremity: femoral Chronicity: acute Qualified Code(s): I82.411 - Acute embolism and thrombosis of right femoral vein Code(s): I82.401 - Acute embolism and thrombosis of unspecified deep veins of right lower extremity Status: Acute Assessment and Plan: * Treatment is problematic due to NPO status, acute kidney injury, thrombocytopenia * Due to erratic INR thrombus has occurred while on warfarin therapy * Trial of IV heparin * Monitor CBC daily (2) Acute kidney injury: Code(s): N17.9 - Acute kidney failure, unspecified Status: Acute Assessment and Plan: * Due to a combination of dehydration and obstructive uropathy * Creatinine improving with hydration and Licea catheter * Continue to monitor (3) Acute urinary retention: Code(s): R33.8 - Other retention of urine Status: Acute Assessment and Plan: * BPH and narcotics likely contributing to his acute urinary retention * Continue Licea catheter (4) Esophageal cancer, stage IV: Code(s): C15.9 - Malignant neoplasm of esophagus, unspecified Status: Acute Assessment and Plan: * Patient has declined to a palliative performance score of 30 for approximately the last 2 months in spite of aggressive therapy (5) Dysphagia: Qualifiers: Dysphagia type: esophageal phase Qualified Code(s): R13.10 - Dysphagia, unspecified Code(s): R13.10 - Dysphagia, unspecified Status: Acute Assessment and Plan: * Continue NPO with TPN (6) Atrial fibrillation: Qualifiers: Atrial fibrillation type: unspecified Qualified Code(s): I48.91 - Unspecified atrial fibrillation Code(s): I48.91 - Unspecified atrial fibrillation Status: Acute Assessment and Plan: * Monitor rate mildly is NPO * IV heparin (7) Protein calorie malnutrition: Qualifiers: Protein-calorie malnutrition severity: mild Qualified Code(s): E44.1 - Mild protein-calorie malnutrition Code(s): E46 - Unspecified protein-calorie malnutrition Status: Acute Assessment and Plan: * Albumin 2.3 at admission * Continue TPN (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: Code(s): K31.6 - Fistula of stomach and duodenum Status: Acute Assessment and Plan: * Attempting conservative management as he is a very poor surgical candidate * NPO, ostomy bag, TPN (9) Rheumatoid arthritis: Qualifiers: Rheumatoid arthritis location: unspecified site Rheumatoid factor presence: unspecified presence Qualified Code(s): M06.9 - Rheumatoid arthritis, unspecified Code(s): M06.9 - Rheumatoid arthritis, unspecified Status: Acute Assessment and Plan: * Hold methotrexate due to NPO status * IV hydrocortisone (10) Diabetes mellitus: Qualifiers: Diabetes mellitus type: type 2 Diabetes mellitus terminal manager insulin use: without jail use Diabetes mellitus complication status: with hyperglycemia Qualified Code(s): E11.65 - Type 2 diabetes mellitus with hyperglycemia Code(s): E11.9 - Type 2 diabetes mellitus without complications Status: Acute Assessment and Plan: * Q.6 are sliding scale insulin (11) Hypothyroidism: Qualifiers: Hypothyroidism type: acquired Qualified Code(s): E03.9 - Hypothyroidism, unspecified
--- NOTE | 2019-09-11 11:20 | PM.IMPN ---
Progress Note: A&P Assessment and Plan (1) Right leg DVT: Qualifiers: Affected thrombotic vein of extremity: femoral Chronicity: acute Qualified Code(s): I82.411 - Acute embolism and thrombosis of right femoral vein Code(s): I82.401 - Acute embolism and thrombosis of unspecified deep veins of right lower extremity Status: Acute Assessment and Plan: Treatment is problematic due to NPO status, acute kidney injury, thrombocytopenia Due to erratic INR thrombus has occurred while on warfarin therapy Trial of IV heparin Monitor CBC daily (2) Acute kidney injury: Code(s): N17.9 - Acute kidney failure, unspecified Status: Acute Assessment and Plan: Due to a combination of dehydration and obstructive uropathy Creatinine improving with hydration and Licea catheter Continue to monitor (3) Acute urinary retention: Code(s): R33.8 - Other retention of urine Status: Acute Assessment and Plan: BPH and narcotics likely contributing to his acute urinary retention Continue Licea catheter (4) Esophageal cancer, stage IV: Code(s): C15.9 - Malignant neoplasm of esophagus, unspecified Status: Acute Assessment and Plan: Patient has declined to a palliative performance score of 30 for approximately the last 2 months in spite of aggressive therapy (5) Dysphagia: Qualifiers: Dysphagia type: esophageal phase Qualified Code(s): R13.10 - Dysphagia, unspecified Code(s): R13.10 - Dysphagia, unspecified Status: Acute Assessment and Plan: Continue NPO with TPN (6) Atrial fibrillation: Qualifiers: Atrial fibrillation type: unspecified Qualified Code(s): I48.91 - Unspecified atrial fibrillation Code(s): I48.91 - Unspecified atrial fibrillation Status: Acute Assessment and Plan: Monitor rate mildly is NPO IV heparin (7) Protein calorie malnutrition: Qualifiers: Protein-calorie malnutrition severity: mild Qualified Code(s): E44.1 - Mild protein-calorie malnutrition Code(s): E46 - Unspecified protein-calorie malnutrition Status: Acute Assessment and Plan: Albumin 2.3 at admission Continue TPN (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: Code(s): K31.6 - Fistula of stomach and duodenum Status: Acute Assessment and Plan: Attempting conservative management as he is a very poor surgical candidate NPO, ostomy bag, TPN (9) Rheumatoid arthritis: Qualifiers: Rheumatoid arthritis location: unspecified site Rheumatoid factor presence: unspecified presence Qualified Code(s): M06.9 - Rheumatoid arthritis, unspecified Code(s): M06.9 - Rheumatoid arthritis, unspecified Status: Acute Assessment and Plan: Hold methotrexate due to NPO status IV hydrocortisone (10) Diabetes mellitus: Qualifiers: Diabetes mellitus type: type 2 Diabetes mellitus halfway insulin use: without halfway use Diabetes mellitus complication status: with hyperglycemia Qualified Code(s): E11.65 - Type 2 diabetes mellitus with hyperglycemia Code(s): E11.9 - Type 2 diabetes mellitus without complications Status: Acute Assessment and Plan: Q.6 are sliding scale insulin (11) Hypothyroidism: Qualifiers: Hypothyroidism type: acquired Qualified Code(s): E03.9 - Hypothyroidism, unspecified Code(s): E03.9 - Hypothyroidism, unspecified Status: Acute Assessment and Plan: IV levothyroxine (12) HTN (hypertension): Qualifiers: Hypertension type: essential hypertension Qualified Code(s): I10 - Essential (primary) hypertension Code(s): I10 - Essential (primary) hypertension Status: Acute Assessment and Plan: Will metoprolol due to NPO status and soft blood pressures Pressure and heart rate (13)
[2019-09-11] MEDS: HYDROCORTISONE SODIUM SUCCINATE 100 MG/2 ML VIAL 20 MG IV PUSH ×2 (12:18→20:25)
[2019-09-11 12:28] LABS: Basophils Percent Auto 0.4 % (0.2-1.2); Eosinophils Percent Auto 0.2 % (0-4.4); Hematocrit 26.3 % (42.0-52.0); Hemoglobin 8.4 g/dL (14.0-18.0); Immature Granulocyte Absolute 0.07 K/mm3 (0.00-0.031); Immature Granulocyte Percent A 1.3 % (0-0.5); Immature Platelet Fraction Pct 3.1 % (0.9-11.2); Lymphocytes Absolute Auto 0.08 K/mm3 (0.9-3.2); Lymphocytes Percent Auto 1.4 % (18.3-44.2); Mean Corpuscular HGB Conc 31.9 g/dl (32-36); Mean Corpuscular Hemoglobin 31.1 pg (26-34); Mean Corpuscular Volume 97.4 fl (80-100); Mean Platelet Volume 12.3 fl (7.4-10.4); Monocytes Absolute Auto 0.1 K/mm3 (0.1-0.6); Monocytes Percent Auto 1.6 % (2.6-8.5); Neutrophils Absolute Auto 5.3 K/mm3 (1.3-6.7); Neutrophils Percent Auto 95.1 % (45.5-73.1); Platelet Count Result 49 k/mm3 (150-375); White Blood Count 5.6 K/mm3 (4.5-10.0)
[2019-09-11 12:37] LABS: INR 1.9; Prothrombin Time 21.1 Seconds (11.1-14.7)
[2019-09-11 12:38] LABS: Partial Thromboplastin Time 52.7 SECONDS (22.3-36.8)
[2019-09-11 12:51] LABS: Anisocytosis 1+ (NORMAL); Platelet Estimate Decreased (Adequate)
[2019-09-11 12:52] LABS: Glucose Point of Care 216 (65-105)
[2019-09-11 12:53] LABS: Blood Urea Nitrogen 51 mg/dL (9-20); Calcium 7.6 mg/dL (8.4-10.2); Carbon Dioxide 26 mmol/L (22-30); Chloride 104 mmol/L (98-107); Estimated CRCL calculation 34 ml/min; Estimated Glomerular Filt Rate 36; Glucose 259 mg/dL (75-110); Potassium 3.6 mmol/L (3.4-5.0); Sodium 140 mmol/L (137-145)
[2019-09-11] MEDS: HEPARIN SOD/D5W 100 UNITS/ML 25,000 UNITS/250 ML BAG 15 UNITS IV CONT (13:06)
--- NOTE | 2019-09-11 13:51 | PM.PNGS ---
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 Dr. Vogel discussed options with the patient including attempting to place a G tube back in this fistulous opening to allow the patient to start taking in oral intake again. His current overall health status and recent decline makes him a very poor surgical candidate, therefore we have been attempting more conservative management. The patient is adamant on eating and would like to proceed with trying to place the G tube back in so that he would be able to take in oral liquids. Dr. Vogel will attempt to do this at the bedside later today. If this is not possible at the bedside, he may require G-tube placement with a guidewire or possibly under fluoroscopy. Will keep him NPO and on the Clinimix while pending the attempted G-tube placement. (2) Esophageal cancer, stage IV: Code(s): C15.9 - Malignant neoplasm of esophagus, unspecified Status: Acute (3) Right leg DVT: Qualifiers: Affected thrombotic vein of extremity: femoral Chronicity: acute Qualified Code(s): I82.411 - Acute embolism and thrombosis of right femoral vein Code(s): I82.401 - Acute embolism and thrombosis of unspecified deep veins of right lower extremity Status: Acute Assessment and Plan: Developed a thrombus on warfarin therapy. Hospitalist is starting IV heparin. Additional Plan Discussed plan of care with Dr. Vogel today. Subjective Subjective Date/Time Seen: 09/11/19 11:00 Patient reports: still having pain (Throat, back, and leg pain) Interval history: Patient seen and examined. No new complaints today. Still having pain in his throat, back, and legs. Denies any abdominal pain or other new symptoms. Review of Systems Review of Systems: All systems reviewed & are unremarkable except as noted in HPI and below Exam Const: General: no acute distress, alert, awake and uncomfortable Orientation/consciousness: patient oriented x3 GI: Inspection: non-distended GI Palp: No abdominal tenderness, Yes Soft to palpation, No Guarding due to palpation present (GI) and No Rebound tenderness present Auscultation: normal bowel sounds Other: 1 cm opening in left upper abdomen from prior G-tube site with ostomy appliance. Bilious appearing drainage in the ostomy bag about 50-60 cc on my exam. Skin: General skin exam: pallor Neuro: General: patient oriented x3 and no focal motor deficits Psych: Mental Status: mental status grossly normal Affect: Sad affect present Objective Data Vital Signs Vital Signs: Vital Signs - 24 hr 09/10/19 14:00 09/10/19 22:00 09/11/19 01:52 Temperature 37.1 C 35.9 C L Pulse Rate 72 71 71 Respiratory Rate 18 18 Blood Pressure 107/50 L 118/50 L Pulse Oximetry 100 99 09/11/19 04:00 09/11/19 05:34 Temperature 36.2 C L Pulse Rate 67 68 Respiratory Rate 18 Blood Pressure 124/52 L Pulse Oximetry 98 Intake/Output Intake/Output: Intake & Output 09/08/19 09/09/19 09/10/19 09/11/19 23:59 23:59 23:59 23:59 Intake Total 1050 1778 860 Output Total 1650 750 Balance 1050 128 110 Meds/Results Medications: Active Medications Generic Name Dose Route Start Last Admin Trade Name Freq PRN Reason Stop Dose Admin Dextrose 12.5 gm 09/10/19 16:03 Dextrose 50% Syringe IV PUSH PRN PRN Hypoglycemia Protocol Dorzolamide/Timolol 1 drop 09/11/19 21:00 Cosopt Eye Drops EACH EYE Q12HR SARIKA Glucagon 1 mg 09/10/19 16:03 Glucagon For Inj IM PRN PRN Hypoglycemia Protocol Glucose 15 gm 09/10/19 16:03 Glutose 15 PO PRN PRN Hypoglycemia Protocol Heparin Sodium (Porcine) 500 units 09/10/19 09:08 Heparin Sod Flush 100 Units/Ml IV PUS
--- NOTE | 2019-09-11 14:10 | PCPTNOTE ---
Orders for eval and treat...pt has DVT, treatment just began this morning...MD does not want the patient out of bed yet...will see tomorrow as appopriate
[2019-09-11] MEDS: FAT EMULSIONS IV 20% 250 ML 20 ML IVPB (16:56)
[2019-09-11 18:05] LABS: Glucose Point of Care 276 (65-105)
[2019-09-11 19:30] LABS: Partial Thromboplastin Time 160.4 SECONDS (22.3-36.8)
[2019-09-11] MEDS: DORZOLAMIDE/TIMOLOL OPHTH SOL 10 ML BOTTLE 1 DROP EACH EYE (20:26)
[2019-09-11 23:46] LABS: Glucose Point of Care 258 (65-105)
[2019-09-12] VITALS: PULSE 65
[2019-09-12 03:25] LABS: Basophils Percent Auto 0.2 % (0.2-1.2); Eosinophils Percent Auto 0.2 % (0-4.4); Hematocrit 24.9 % (42.0-52.0); Hemoglobin 7.9 g/dL (14.0-18.0); Immature Granulocyte Absolute 0.21 K/mm3 (0.00-0.031); Immature Granulocyte Percent A 4.3 % (0-0.5); Immature Platelet Fraction Pct 3.1 % (0.9-11.2); Lymphocytes Absolute Auto 0.09 K/mm3 (0.9-3.2); Lymphocytes Percent Auto 1.8 % (18.3-44.2); Mean Corpuscular HGB Conc 31.7 g/dl (32-36); Mean Corpuscular Hemoglobin 31.3 pg (26-34); Mean Corpuscular Volume 98.8 fl (80-100); Mean Platelet Volume 12.5 fl (7.4-10.4); Monocytes Absolute Auto 0.1 K/mm3 (0.1-0.6); Monocytes Percent Auto 2.1 % (2.6-8.5); Neutrophils Absolute Auto 4.5 K/mm3 (1.3-6.7); Neutrophils Percent Auto 91.4 % (45.5-73.1); Platelet Count Result 47 k/mm3 (150-375); Red Blood Count 2.52 M/mm3 (4.6-6.20); Red Cell Distribution Width 16.9 % (11.5-14.5); White Blood Count 4.9 K/mm3 (4.5-10.0)
[2019-09-12 03:31] LABS: Blood Urea Nitrogen 50 mg/dL (9-20); Calcium 7.6 mg/dL (8.4-10.2); Carbon Dioxide 27 mmol/L (22-30); Chloride 104 mmol/L (98-107); Estimated CRCL calculation 38 ml/min; Estimated Glomerular Filt Rate 42; Glucose 291 mg/dL (75-110); Phosphorus 4.5 mg/dL (2.5-4.5); Sodium 139 mmol/L (137-145)
[2019-09-12 03:55] LABS: Macrocytosis 1+ (NORMAL); Ovalocytes 1+ (NORMAL); Platelet Estimate Decreased (Adequate)
[2019-09-12 03:56] LABS: Microcytosis 1+ (NORMAL)
[2019-09-12 04:00] VITALS: PULSE 65
[2019-09-12 06:00] VITALS: BP 123/63; PULSE 75; RESP 20; TEMP 35.9; O2SAT 100
[2019-09-12] MEDS: MORPHINE SULFATE 2 MG/ML INJ IV PUSH ×2 (06:09→13:29)
[2019-09-12] MEDS: LEVOTHYROXINE SODIUM INJ 100 MCG/5 ML VIAL 62 MCG IV PUSH (06:10)
[2019-09-12] MEDS: INSULIN HUMAN REGULAR (*BKC) 100 UNITS/ML SUB-Q ×2 (06:13→17:53)
[2019-09-12 08:00] VITALS: PULSE 73
[2019-09-12 08:22] LABS: Glucose Point of Care 242 (65-105)
[2019-09-12] MEDS: DORZOLAMIDE/TIMOLOL OPHTH SOL 10 ML BOTTLE 1 DROP EACH EYE ×2 (09:56→21:42)
[2019-09-12] MEDS: HYDROCORTISONE SODIUM SUCCINATE 100 MG/2 ML VIAL 20 MG IV PUSH (09:56)
[2019-09-12] MEDS: SILVERGEL (ELTA) 45 ML 1 APPLIC TOPICAL (09:59)
--- NOTE | 2019-09-12 11:22 | PM.PNGS ---
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 If no significant drainage around G-tube, will be able to continue oral diet. G-tube can also be used for supplemental feeding or meds so that patient is getting adequate calories and nutrition. Subjective Subjective Date/Time Seen: 09/12/19 11:22 G-tube successfully replaced yesterday. No leakage noted around tube. Dressing dry. Patient hungry. Exam GI: Other: G-tube in place. Gastric drainage in Licea bag, but dressing dry. Objective Data Vital Signs Vital Signs: Vital Signs - 24 hr 09/11/19 12:00 09/11/19 14:00 09/11/19 16:00 Temperature 36.4 C L Pulse Rate 69 65 72 Respiratory Rate 18 Blood Pressure 120/51 L Pulse Oximetry 95 09/11/19 20:00 09/11/19 22:00 09/12/19 00:00 Temperature 35.8 C L Pulse Rate 67 64 65 Respiratory Rate 18 20 Blood Pressure 110/54 L Pulse Oximetry 95 97 09/12/19 04:00 09/12/19 06:00 Temperature 35.9 C L Pulse Rate 65 75 Respiratory Rate 20 Blood Pressure 123/63 Pulse Oximetry 100 Intake/Output Intake/Output: Intake & Output 09/09/19 09/10/19 09/11/19 09/12/19 23:59 23:59 23:59 23:59 Intake Total 1050 1778 1290 300 Output Total 1650 1400 700 Balance 1050 128 -110 -400 Meds/Results Medications: Active Medications Generic Name Dose Route Start Last Admin Trade Name Freq PRN Reason Stop Dose Admin Dextrose 12.5 gm 09/10/19 16:03 Dextrose 50% Syringe IV PUSH PRN PRN Hypoglycemia Protocol Dorzolamide/Timolol 1 drop 09/11/19 21:00 09/12/19 09:56 Cosopt Eye Drops EACH EYE 1 drop Q12HR SARIKA Administration Glucagon 1 mg 09/10/19 16:03 Glucagon For Inj IM PRN PRN Hypoglycemia Protocol Glucose 15 gm 09/10/19 16:03 Glutose 15 PO PRN PRN Hypoglycemia Protocol Heparin Sodium (Porcine) 500 units 09/10/19 09:08 Heparin Sod Flush 100 Units/Ml IV PUSH PRN PRN see comments below Heparin Sodium (Porcine) 6,500 units 09/11/19 11:22 Heparin Sodium IV PUSH PRN PRN aPTT less than 55 seconds Heparin Sodium (Porcine) 3,500 units 09/11/19 11:22 Heparin Sodium IV PUSH PRN PRN aPTT 55 - 70 seconds Hydrocortisone Sodium Succinate 20 mg 09/11/19 11:20 09/12/19 09:56 Solu-Cortef IV PUSH 20 mg Q12HR SARIKA Administration Dextrose 1,000 mls @ 50 mls/hr 09/10/19 15:14 Dextrose 10% IV CONT .Q20H PRN if PN is interrupted Dextrose 1,000 mls @ 100 mls/hr 09/10/19 16:03 Dextrose 5% 1,000 Ml IVPB PRN PRN Hypoglycemia Protocol Cefepime HCl 1 gm in 50 mls @ 100 mls/hr 09/11/19 06:00 09/12/19 06:55 Maxipime 1 Gm/D5w 50 Ml IVPB Infused Q24H SARIKA Infusion Heparin Sodium/Dextrose 25,000 units in 250 mls @ 10 mls/hr 09/11/19 11:25 09/11/19 13:06 Heparin Sodium/D5w 100 Units/Ml IV CONT 1,500 units/hr .Q24H SARIKA 15 mls/hr Administration Protocol 1,000 UNITS/HR Insulin Aspart 0 units 09/11/19 00:00 09/12/19 06:13 SUB-Q 2 units Q6HR SARIKA Administration Protocol Levothyroxine Sodium 62 mcg 09/11/19 06:30 09/12/19 06:10 Levothyroxine Sodium Inj IV PUSH 62 mcg DAILY@0630 SARIKA Administration Morphine Sulfate 2 mg 09/11/19 00:00 09/12/19 06:09 Morphine Sulfate Inj IV PUSH 2 mg Q6HR SARIKA Administration Morphine Sulfate 2 mg 09/10/19 18:45 09/11/19 16:33 Morphine Sulfate Inj IV PUSH 2 mg Q3HR PRN Administration Breakthrough Pain Ondansetron HCl 4 mg 09/09/19 16:21 Zofran Inj IV PUSH Q4H PRN Nausea Silver Nitrate 1 applic 09/10/19 09:00 09/12/19 09:59 Silvergel TOPICAL 1 applic DAILY SARIKA Administration Radiology Results: ITS Impressions Chest X-Ray 08/23
--- NOTE | 2019-09-12 11:29 | CONS_ITS ---
DATE OF DISCHARGE: REASON FOR CONSULTATION: Metastatic esophageal cancer. 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 PET scan was performed that showed hypermetabolic lesion in the right hepatic lobe of the liver with paraesophageal lymphadenopathy. The patient started weekly radiation therapy with Carboplatinum and Taxol on July 08, 2019. Due to dysphagia, the patient had gastrostomy tube placed. The patient unfortunately had complication with the gastrostomy tube with infection. He started having leakage from the G-tube and tube was removed by Dr. Vogel on August 22, 2018. He was recently hospitalized due to drainage from the gastrocutaneous fistula. He was treated with TPN. The patient now came back into the hospital with generalized weakness and gastrocutaneous fistula and development of acute renal failure. He remains quite tired and fatigued. The patient is able to eat and swallow better. He denies any bleeding and bruising. Denies any fevers and chills. REVIEW OF SYSTEMS: 12-point review of system was reviewed and as per HPI, otherwise negative. 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 PAST SURGICAL HISTORY: Amputation of the toe, cataract surgery, pacemaker placement. FAMILY HISTORY: No history of cancer in the family. SOCIAL HISTORY: The patient denies any history of drinking and quit smoking long time ago. The patient is . HOME MEDICATIONS: Reviewed. ALLERGIES: REVIEWED. PHYSICAL EXAMINATION: GENERAL: This patient is quite tired looking male. The patient is pale. No alert and oriented. VITAL SIGNS: Per nursing note. HEENT: Normocephalic, atraumatic. Clear oropharynx. LUNGS: Clear to auscultation bilaterally. CARDIOVASCULAR: Regular rate and rhythm. No murmur. ABDOMEN: Soft, nontender, nondistended. Bowel sounds are positive in all 4 quadrants. No hepatosplenomegaly. EXTREMITIES: No edema. NEURO: Grossly intact. LABORATORY DATA: WBC 4.9, hemoglobin 7.9, platelet count is 47,000, neutrophils 91%. Creatinine 1.6. ASSESSMENT AND PLAN: 1. 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 The patient received last chemotherapy treatment on August 21, 2019. The patient also completed radiation therapy treatment. Plan was to perform imaging studies a month after the initial round of chemotherapy to discuss further management. The patient is unfortunately sick with complication from the G-tube with development of gastrocutaneous fistula. I will hold any further treatment towards his malignancy due to the patient's poor performance status at this time. We will continue to follow with the patient to see how he recovers from this acute complication. Gastrostomy tube was replaced at bedside yesterday. 2. Anemia. Multifactorial with poor nutrition and malabsorption along with previous chemotherapy and radiation therapy. I will check basic workup for anemia here that will include iron studies and vitamin B12 level. We will follow along with you in the care of this patient. The patient will also follow up with us as an outpatient for further management of his malignancy. Janis I MT: Gris
[2019-09-12 11:40] LABS: Blood Urea Nitrogen 48 mg/dL (9-20); Carbon Dioxide 28 mmol/L (22-30); Chloride 103 mmol/L (98-107); Estimated CRCL calculation 40 ml/min; Estimated Glomerular Filt Rate 45; Glucose 198 mg/dL (75-110); Potassium 3.9 mmol/L (3.4-5.0); Sodium 140 mmol/L (137-145)
[2019-09-12 11:48] LABS: Glucose Point of Care 165 (65-105)
[2019-09-12 11:49] LABS: Partial Thromboplastin Time 75.1 SECONDS (22.3-36.8)
[2019-09-12 12:37] LABS: Iron 37 ug/dL (49-181)
[2019-09-12] MEDS: HEPARIN SOD/D5W 100 UNITS/ML 25,000 UNITS/250 ML BAG 10 UNITS IV CONT (12:40)
[2019-09-12 12:47] LABS: Folic Acid 6.3 ng/mL (2.76->20)
[2019-09-12 12:48] LABS: Percent Iron Saturation 23 % (20-50)
--- NOTE | 2019-09-12 13:41 | P.PNIM_ITS ---
Progress Note: A&P Assessment and Plan (1) Right leg DVT: Qualifiers: Affected thrombotic vein of extremity: femoral Chronicity: acute Qualified Code(s): I82.411 - Acute embolism and thrombosis of right femoral vein Code(s): I82.401 - Acute embolism and thrombosis of unspecified deep veins of right lower extremity Status: Acute Assessment and Plan: * Due to NPO status, heparin begun 09/11 * 09/12 stop heparin and begin Eliquis 10mg PO q 12 hrs (2) Acute kidney injury: Code(s): N17.9 - Acute kidney failure, unspecified Status: Acute Assessment and Plan: * Due to a combination of dehydration and obstructive uropathy * Creatinine improving with hydration and Licea catheter * Continue to monitor (3) Acute urinary retention: Code(s): R33.8 - Other retention of urine Status: Acute Assessment and Plan: * BPH and narcotics likely contributing to his acute urinary retention * Continue Licea catheter (4) Esophageal cancer, stage IV: Code(s): C15.9 - Malignant neoplasm of esophagus, unspecified Status: Acute Assessment and Plan: * Patient has declined to a palliative performance score of 30 for approximately the last 2 months in spite of aggressive therapy * Oncology input noted and appreciated (5) Dysphagia: Qualifiers: Dysphagia type: esophageal phase Qualified Code(s): R13.10 - Dysphagia, unspecified Code(s): R13.10 - Dysphagia, unspecified Status: Acute Assessment and Plan: * Doing well with PO intake (6) Atrial fibrillation: Qualifiers: Atrial fibrillation type: unspecified Qualified Code(s): I48.91 - Unspecified atrial fibrillation Code(s): I48.91 - Unspecified atrial fibrillation Status: Acute Assessment and Plan: * Paced rhythm * Eliquis PO (7) Protein calorie malnutrition: Qualifiers: Protein-calorie malnutrition severity: mild Qualified Code(s): E44.1 - Mild protein-calorie malnutrition Code(s): E46 - Unspecified protein-calorie malnutrition Status: Acute Assessment and Plan: * Albumin 2.3 at admission * Tolerating PO intake * Supplements ordered (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: Code(s): K31.6 - Fistula of stomach and duodenum Status: Acute Assessment and Plan: * G-tube replaced 09/11 (9) Rheumatoid arthritis: Qualifiers: Rheumatoid arthritis location: unspecified site Rheumatoid factor presence: unspecified presence Qualified Code(s): M06.9 - Rheumatoid arthritis, unspecified Code(s): M06.9 - Rheumatoid arthritis, unspecified Status: Acute Assessment and Plan: * 09/11 resume MTX and prednisone (10) Diabetes mellitus: Qualifiers: Diabetes mellitus type: type 2 Diabetes mellitus prison insulin use: without prison use Diabetes mellitus complication status: with hyperglycemia Qualified Code(s): E11.65 - Type 2 diabetes mellitus with hyperglycemia Code(s): E11.9 - Type 2 diabetes mellitus without complications Status: Acute Assessment and Plan: * QID SSI (11) Hypothyroidism: Qualifiers: Hypothyroidism type: acquired Qualified Code(s): E03.9 - Hypothyroidism, unspecified Code(s): E03.9 - Hypothyroidism, unspecified Status: Acute Assessment and Plan: * PO levothyroxine (12) HTN (hypertension):
--- NOTE | 2019-09-12 13:41 | PM.IMPN ---
Progress Note: A&P Assessment and Plan (1) Right leg DVT: Qualifiers: Affected thrombotic vein of extremity: femoral Chronicity: acute Qualified Code(s): I82.411 - Acute embolism and thrombosis of right femoral vein Code(s): I82.401 - Acute embolism and thrombosis of unspecified deep veins of right lower extremity Status: Acute Assessment and Plan: Due to NPO status, heparin begun 09/11 09/12 stop heparin and begin Eliquis 10mg PO q 12 hrs (2) Acute kidney injury: Code(s): N17.9 - Acute kidney failure, unspecified Status: Acute Assessment and Plan: Due to a combination of dehydration and obstructive uropathy Creatinine improving with hydration and Licea catheter Continue to monitor (3) Acute urinary retention: Code(s): R33.8 - Other retention of urine Status: Acute Assessment and Plan: BPH and narcotics likely contributing to his acute urinary retention Continue Licea catheter (4) Esophageal cancer, stage IV: Code(s): C15.9 - Malignant neoplasm of esophagus, unspecified Status: Acute Assessment and Plan: Patient has declined to a palliative performance score of 30 for approximately the last 2 months in spite of aggressive therapy Oncology input noted and appreciated (5) Dysphagia: Qualifiers: Dysphagia type: esophageal phase Qualified Code(s): R13.10 - Dysphagia, unspecified Code(s): R13.10 - Dysphagia, unspecified Status: Acute Assessment and Plan: Doing well with PO intake (6) Atrial fibrillation: Qualifiers: Atrial fibrillation type: unspecified Qualified Code(s): I48.91 - Unspecified atrial fibrillation Code(s): I48.91 - Unspecified atrial fibrillation Status: Acute Assessment and Plan: Paced rhythm Eliquis PO (7) Protein calorie malnutrition: Qualifiers: Protein-calorie malnutrition severity: mild Qualified Code(s): E44.1 - Mild protein-calorie malnutrition Code(s): E46 - Unspecified protein-calorie malnutrition Status: Acute Assessment and Plan: Albumin 2.3 at admission Tolerating PO intake Supplements ordered (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: Code(s): K31.6 - Fistula of stomach and duodenum Status: Acute Assessment and Plan: G-tube replaced 09/11 (9) Rheumatoid arthritis: Qualifiers: Rheumatoid arthritis location: unspecified site Rheumatoid factor presence: unspecified presence Qualified Code(s): M06.9 - Rheumatoid arthritis, unspecified Code(s): M06.9 - Rheumatoid arthritis, unspecified Status: Acute Assessment and Plan: 09/11 resume MTX and prednisone (10) Diabetes mellitus: Qualifiers: Diabetes mellitus type: type 2 Diabetes mellitus long term care social worker insulin use: without long term care social worker use Diabetes mellitus complication status: with hyperglycemia Qualified Code(s): E11.65 - Type 2 diabetes mellitus with hyperglycemia Code(s): E11.9 - Type 2 diabetes mellitus without complications Status: Acute Assessment and Plan: QID SSI (11) Hypothyroidism: Qualifiers: Hypothyroidism type: acquired Qualified Code(s): E03.9 - Hypothyroidism, unspecified Code(s): E03.9 - Hypothyroidism, unspecified Status: Acute Assessment and Plan: PO levothyroxine (12) HTN (hypertension): Qualifiers: Hypertension type: essential hypertension Qualified Code(s): I10 - Essential (primary) hypertension Code(s): I10 - Essential (primary) hypertension Status: Acute Assessment and Plan: Hold metoprolol and monitor (13) Skin cancer: Code(s): C44.90 - Unspecified malignant neoplasm of skin, unspecified Status: Acute Assessment and Plan: Will require outpatient follow-up once medically stable Subjective Da
--- NOTE | 2019-09-12 13:56 | PCNFU ---
Nutrition Follow-Up Complete: Altered GI fxn as related to fistula as evidenced by NPO Meet estimated energy needs Goal:progressing towards goal. Pt current nutrition is full liquid. Nutrition recommendation: Agree Last recorded weight is 89.2 kg. Bowel Motility:no BM reported at this time. Labs Reviewed:Glu 291, Cr 1.6, BUN 50 Additional Notes: G tube replaced. Patient has had supplemental feedings in the past at home. Current diet order is Full liquids with Ensure Enlive BID for an additional 350 kcals and 20 gm protein. 100% intake reported on full liquids for lunch-cranberry juice, oatmeal, orange sherbert, chicken broth, coffee, v8 and Ensure Enlive ordered. Monitoring: Will monitor every 3 days
[2019-09-12 14:00] VITALS: BP 110/56; PULSE 71; RESP 18; TEMP 36.3; O2SAT 98
[2019-09-12 17:41] LABS: Glucose Point of Care 269 (65-105)
[2019-09-12] MEDS: APIXABAN 5 MG TABLET 10 MG PO (17:52)
[2019-09-12 21:49] VITALS: BP 113/62; PULSE 79; RESP 14; TEMP 36.2; O2SAT 95
[2019-09-12 21:56] LABS: Glucose Point of Care 291 (65-105)
[2019-09-13 06:00] VITALS: BP 134/77; PULSE 80; RESP 16; TEMP 35.9; O2SAT 94
[2019-09-13] MEDS: LEVOTHYROXINE SODIUM 125 MCG TABLET PO (06:15)
[2019-09-13] MEDS: MORPHINE SULFATE 2 MG/ML INJ IV PUSH ×4 (06:15→20:39)
[2019-09-13 06:47] LABS: Hematocrit 27.3 % (42.0-52.0); Hemoglobin 8.6 g/dL (14.0-18.0); Mean Corpuscular HGB Conc 31.5 g/dl (32-36); Mean Corpuscular Hemoglobin 31.2 pg (26-34); Mean Corpuscular Volume 98.9 fl (80-100); Mean Platelet Volume 12.2 fl (7.4-10.4); Platelet Count Result 40 k/mm3 (150-375); Red Blood Count 2.76 M/mm3 (4.6-6.20); Red Cell Distribution Width 16.9 % (11.5-14.5); White Blood Count 2.9 K/mm3 (4.5-10.0)
[2019-09-13 07:00] LABS: Blood Urea Nitrogen 44 mg/dL (9-20); Calcium 7.9 mg/dL (8.4-10.2); Carbon Dioxide 27 mmol/L (22-30); Chloride 102 mmol/L (98-107); Estimated CRCL calculation 40 ml/min; Estimated Glomerular Filt Rate 45; Glucose 153 mg/dL (75-110); Sodium 138 mmol/L (137-145)
[2019-09-13 08:12] LABS: Glucose Point of Care 151 (65-105)
[2019-09-13] MEDS: APIXABAN 5 MG TABLET 10 MG PO ×2 (09:12→20:38)
[2019-09-13] MEDS: FOLIC ACID 1 MG TABLET PO (09:12)
[2019-09-13] MEDS: SILVERGEL (ELTA) 45 ML 1 APPLIC TOPICAL (09:12)
[2019-09-13] MEDS: predniSONE 20 MG TABLET PO (09:12)
[2019-09-13] MEDS: DORZOLAMIDE/TIMOLOL OPHTH SOL 10 ML BOTTLE 1 DROP EACH EYE ×2 (09:12→20:38)
[2019-09-13 12:56] LABS: Glucose Point of Care 281 (65-105)
[2019-09-13] MEDS: INSULIN ASPART (*BKC) 100 UNITS/ML SUB-Q ×2 (13:05→16:23)
[2019-09-13 14:00] VITALS: BP 115/60; PULSE 69; RESP 16; TEMP 36.4; O2SAT 98
--- NOTE | 2019-09-13 15:00 | PM.PNGS ---
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 Will plan to keep in place for the foreseeable future. He is taking P.O. currently, but if swallowing worsens, could start tube feedings. Subjective Subjective Date/Time Seen: 09/13/19 15:00 Tolerating diet and no difficulties with G-tube in place. Still very weak. Exam GI: Other: G-tube in place, dressing dry. Objective Data Vital Signs Vital Signs: Vital Signs - 24 hr 09/12/19 21:49 09/13/19 06:00 Temperature 36.2 C L 35.9 C L Pulse Rate 79 80 Respiratory Rate 14 16 Blood Pressure 113/62 134/77 Pulse Oximetry 95 94 Intake/Output Intake/Output: Intake & Output 09/10/19 09/11/19 09/12/19 09/13/19 23:59 23:59 23:59 23:59 Intake Total 1778 1290 1710 1330 Output Total 1650 1400 1250 900 Balance 128 -110 460 430 Meds/Results Medications: Active Medications Generic Name Dose Route Start Last Admin Trade Name Freq PRN Reason Stop Dose Admin Apixaban 10 mg 09/12/19 21:00 09/13/19 09:12 Eliquis PO 10 mg Q12HR SARIKA Administration Dextrose 12.5 gm 09/10/19 16:03 Dextrose 50% Syringe IV PUSH PRN PRN Hypoglycemia Protocol Dorzolamide/Timolol 1 drop 09/11/19 21:00 09/13/19 09:12 Cosopt Eye Drops EACH EYE 1 drop Q12HR SARIKA Administration Folic Acid 1 mg 09/13/19 09:00 09/13/19 09:12 Folic Acid PO 1 mg DAILY SARIKA Administration Glucagon 1 mg 09/10/19 16:03 Glucagon For Inj IM PRN PRN Hypoglycemia Protocol Glucose 15 gm 09/10/19 16:03 Glutose 15 PO PRN PRN Hypoglycemia Protocol Dextrose 1,000 mls @ 50 mls/hr 09/10/19 15:14 Dextrose 10% IV CONT .Q20H PRN if PN is interrupted Dextrose 1,000 mls @ 100 mls/hr 02/19/20 16:03 Dextrose 5% 1,000 Ml IVPB PRN PRN Hypoglycemia Protocol Cefepime HCl 1 gm in 50 mls @ 100 mls/hr 09/11/19 06:00 09/13/19 07:16 Maxipime 1 Gm/D5w 50 Ml IVPB Infused Q24H SARIKA Infusion Insulin Aspart 0 units 09/13/19 08:00 09/13/19 13:05 Novolog SUB-Q 3 units TIDWM [facility] Administration Protocol Levothyroxine Sodium 125 mcg 09/13/19 06:30 09/13/19 06:15 Synthroid PO 125 mcg DAILY@0630 SARIKA Administration Morphine Sulfate 2 mg 09/10/19 18:45 09/13/19 09:28 Morphine Sulfate Inj IV PUSH 2 mg Q3HR PRN Administration Breakthrough Pain Ondansetron HCl 4 mg 09/09/19 16:21 Zofran Inj IV PUSH Q4H PRN Nausea Prednisone 20 mg 09/13/19 08:00 09/13/19 09:12 Prednisone PO 20 mg DAILY@0800 [facility] Administration Silver Nitrate 1 applic 09/10/19 09:00 09/13/19 09:12 Silvergel TOPICAL 1 applic DAILY SARIKA Administration Radiology Results: ITS Impressions Chest X-Ray 09/09/19 14:42 IMPRESSION: No active cardiopulmonary disease Right Port-A-Cath Left pacemaker device Foot X-Ray 09/09/19 14:54 IMPRESSION: 1. No acute osseous abnormality. Specifically no evident cortical erosions/osteolysis or periosteal reaction to suggest osteomyelitis. Retroperitoneum Ultrasound 09/11/19 09:44 IMPRESSION: 1. No hydronephrosis. Venous Doppler Study 09/11/19 10:25 IMPRESSION: 1. Deep vein thrombosis involving right profunda femoral vein. I called this result to Dr. Shelton on 09/11/19 at 10:28 AM. Contrast Injection Evaluation 09/12/19 09:27 IMPRESSION: 1. Gastrostomy tube in expected position. Labs Labs: Laboratory Results - last 24 hr 09/12/19 09/12/19 09/13/19 17:19 21:44 06:24 WBC 2.9 L RBC 2.76 L Hgb 8.6 L Hct 27.3 L MCV 98.9 MCH 31.2 MCHC 31.5 L RDW 16.9 H Plt Count 40 L MPV 12.2 H % Immature Plt Fraction 3.0 Sodium Potassium Chloride Carbon Dioxide
[2019-09-13 15:59] LABS: Blood Urea Nitrogen 45 mg/dL (9-20); Calcium 7.6 mg/dL (8.4-10.2); Carbon Dioxide 24 mmol/L (22-30); Chloride 99 mmol/L (98-107); Estimated CRCL calculation 40 ml/min; Estimated Glomerular Filt Rate 45; Glucose 264 mg/dL (75-110); Potassium 4.5 mmol/L (3.4-5.0); Sodium 135 mmol/L (137-145); Triglycerides 296 mg/dL (<150)
[2019-09-13 16:10] LABS: Glucose Point of Care 309 (65-105)
--- NOTE | 2019-09-13 16:50 | PCOTNOTE ---
The patient treatment was not able to be completed on [09/13/19] due to [short of staff]. Will plan to continue treatment per plan of care.
--- NOTE | 2019-09-13 17:52 | P.PNIM_ITS ---
Progress Note: A&P Assessment and Plan (1) Right leg DVT: Qualifiers: Affected thrombotic vein of extremity: femoral Chronicity: acute Qualified Code(s): I82.411 - Acute embolism and thrombosis of right femoral vein Code(s): I82.401 - Acute embolism and thrombosis of unspecified deep veins of right lower extremity Status: Acute Assessment and Plan: * Due to NPO status, heparin begun 09/11 * 09/12 stopped heparin and began Eliquis 10mg PO q 12 hrs * Day 3 anticoagulation * reduce Eliquis to 5mg PO q 12 hrs on 09/18/2019 (2) Acute kidney injury: Code(s): N17.9 - Acute kidney failure, unspecified Status: Acute Assessment and Plan: * Due to a combination of dehydration and obstructive uropathy * Creatinine stabilized at 1.5 after hydration and franklin * Continue to monitor (3) Acute urinary retention: Code(s): R33.8 - Other retention of urine Status: Acute Assessment and Plan: * BPH and narcotics likely contributing to his acute urinary retention * Continue Franklin catheter (4) Esophageal cancer, stage IV: Code(s): C15.9 - Malignant neoplasm of esophagus, unspecified Status: Acute Assessment and Plan: * Patient has declined to a palliative performance score of 30 for approximately the last 2 months in spite of aggressive therapy * Oncology input noted and appreciated * Patient will likely require SNF rehab prior to returning home. (5) Dysphagia: Qualifiers: Dysphagia type: esophageal phase Qualified Code(s): R13.10 - Dysphagia, unspecified Code(s): R13.10 - Dysphagia, unspecified Status: Acute Assessment and Plan: * Doing well with PO intake (6) Atrial fibrillation: Qualifiers: Atrial fibrillation type: unspecified Qualified Code(s): I48.91 - Unspecified atrial fibrillation Code(s): I48.91 - Unspecified atrial fibrillation Status: Acute Assessment and Plan: * Paced rhythm * Eliquis PO (7) Protein calorie malnutrition: Qualifiers: Protein-calorie malnutrition severity: mild Qualified Code(s): E44.1 - Mild protein-calorie malnutrition Code(s): E46 - Unspecified protein-calorie malnutrition Status: Acute Assessment and Plan: * Albumin 2.3 at admission * Tolerating PO intake * Supplements ordered (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: Code(s): K31.6 - Fistula of stomach and duodenum Status: Acute Assessment and Plan: * G-tube replaced 09/11 (9) Rheumatoid arthritis: Qualifiers: Rheumatoid arthritis location: unspecified site Rheumatoid factor presence: unspecified presence Qualified Code(s): M06.9 - Rheumatoid arthritis, unspecified Code(s): M06.9 - Rheumatoid arthritis, unspecified Status: Acute Assessment and Plan: * 09/11 resume MTX and prednisone (10) Diabetes mellitus: Qualifiers: Diabetes mellitus type: type 2 Diabetes mellitus termination clerk insulin use: without termination clerk use Diabetes mellitus complication status: with hyperglycemia Qualified Code(s): E11.65 - Type 2 diabetes mellitus with hyperglycemia Code(s): E11.9 - Type 2 diabetes mellitus without complications Status: Acute Assessment and Plan: * QID SSI (11) Hypothyroidism: Qualifiers: Hypothyroidism type: acquired Qualified Code(s): E03.9 - Hypothyroidism, unspecified Code(s): E03.9 - Hyp
--- NOTE | 2019-09-13 17:52 | PM.IMPN ---
Progress Note: A&P Assessment and Plan (1) Right leg DVT: Qualifiers: Affected thrombotic vein of extremity: femoral Chronicity: acute Qualified Code(s): I82.411 - Acute embolism and thrombosis of right femoral vein Code(s): I82.401 - Acute embolism and thrombosis of unspecified deep veins of right lower extremity Status: Acute Assessment and Plan: Due to NPO status, heparin begun 09/11 09/12 stopped heparin and began Eliquis 10mg PO q 12 hrs Day 3 anticoagulation reduce Eliquis to 5mg PO q 12 hrs on 09/18/2019 (2) Acute kidney injury: Code(s): N17.9 - Acute kidney failure, unspecified Status: Acute Assessment and Plan: Due to a combination of dehydration and obstructive uropathy Creatinine stabilized at 1.5 after hydration and franklin Continue to monitor (3) Acute urinary retention: Code(s): R33.8 - Other retention of urine Status: Acute Assessment and Plan: BPH and narcotics likely contributing to his acute urinary retention Continue Franklin catheter (4) Esophageal cancer, stage IV: Code(s): C15.9 - Malignant neoplasm of esophagus, unspecified Status: Acute Assessment and Plan: Patient has declined to a palliative performance score of 30 for approximately the last 2 months in spite of aggressive therapy Oncology input noted and appreciated Patient will likely require SNF rehab prior to returning home. (5) Dysphagia: Qualifiers: Dysphagia type: esophageal phase Qualified Code(s): R13.10 - Dysphagia, unspecified Code(s): R13.10 - Dysphagia, unspecified Status: Acute Assessment and Plan: Doing well with PO intake (6) Atrial fibrillation: Qualifiers: Atrial fibrillation type: unspecified Qualified Code(s): I48.91 - Unspecified atrial fibrillation Code(s): I48.91 - Unspecified atrial fibrillation Status: Acute Assessment and Plan: Paced rhythm Eliquis PO (7) Protein calorie malnutrition: Qualifiers: Protein-calorie malnutrition severity: mild Qualified Code(s): E44.1 - Mild protein-calorie malnutrition Code(s): E46 - Unspecified protein-calorie malnutrition Status: Acute Assessment and Plan: Albumin 2.3 at admission Tolerating PO intake Supplements ordered (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: Code(s): K31.6 - Fistula of stomach and duodenum Status: Acute Assessment and Plan: G-tube replaced 09/11 (9) Rheumatoid arthritis: Qualifiers: Rheumatoid arthritis location: unspecified site Rheumatoid factor presence: unspecified presence Qualified Code(s): M06.9 - Rheumatoid arthritis, unspecified Code(s): M06.9 - Rheumatoid arthritis, unspecified Status: Acute Assessment and Plan: 09/11 resume MTX and prednisone (10) Diabetes mellitus: Qualifiers: Diabetes mellitus type: type 2 Diabetes mellitus terminal clerk insulin use: without fdc use Diabetes mellitus complication status: with hyperglycemia Qualified Code(s): E11.65 - Type 2 diabetes mellitus with hyperglycemia Code(s): E11.9 - Type 2 diabetes mellitus without complications Status: Acute Assessment and Plan: QID SSI (11) Hypothyroidism: Qualifiers: Hypothyroidism type: acquired Qualified Code(s): E03.9 - Hypothyroidism, unspecified Code(s): E03.9 - Hypothyroidism, unspecified Status: Acute Assessment and Plan: PO levothyroxine (12) HTN (hypertension): Qualifiers: Hypertension type: essential hypertension Qualified Code(s): I10 - Essential (primary) hypertension Code(s): I10 - Essential (primary) hypertension Status: Acute Assessment and Plan: Hold metoprolol and monitor (13) Skin cancer: Code(s): C44.90 - Unspecified malignant neoplasm of skin, u
[2019-09-13] MEDS: SIMETHICONE 80 MG TAB.CHEW PO (20:38)
[2019-09-13] MEDS: INSULIN GLARGINE (*BKC) 100 UNITS/ML 18 UNITS SUB-Q (20:40)
[2019-09-13 21:09] LABS: Glucose Point of Care 192 (65-105)
[2019-09-13 22:00] VITALS: BP 128/68; PULSE 75; RESP 16; TEMP 36.4; O2SAT 98
[2019-09-13] MEDS: CENTRAL LINE FLUSH 10 ML IV PUSH (23:26)
[2019-09-14 05:05] LABS: Hematocrit 26.7 % (42.0-52.0); Hemoglobin 8.4 g/dL (14.0-18.0); Immature Platelet Fraction Pct 3.7 % (0.9-11.2); Mean Corpuscular HGB Conc 31.5 g/dl (32-36); Mean Corpuscular Hemoglobin 30.9 pg (26-34); Mean Corpuscular Volume 98.2 fl (80-100); Mean Platelet Volume 11.6 fl (7.4-10.4); Platelet Count Result 35 k/mm3 (150-375); Red Blood Count 2.72 M/mm3 (4.6-6.20); Red Cell Distribution Width 16.7 % (11.5-14.5); White Blood Count 4.7 K/mm3 (4.5-10.0)
[2019-09-14] MEDS: OXYMETAZOLINE HCL 0.05% NAS 15 ML BTL (*BKC) 1 SPRAY NASAL ×2 (05:14→17:18)
[2019-09-14 05:21] LABS: Blood Urea Nitrogen 40 mg/dL (9-20); Calcium 7.7 mg/dL (8.4-10.2); Carbon Dioxide 26 mmol/L (22-30); Chloride 100 mmol/L (98-107); Estimated CRCL calculation 46 ml/min; Estimated Glomerular Filt Rate 53; Glucose 123 mg/dL (75-110); Phosphorus 3.3 mg/dL (2.5-4.5); Potassium 4.1 mmol/L (3.4-5.0); Sodium 137 mmol/L (137-145)
[2019-09-14] MEDS: MORPHINE SULFATE 2 MG/ML INJ IV PUSH ×5 (05:21→21:17)
[2019-09-14 05:41] VITALS: BP 139/71; PULSE 73; RESP 18; TEMP 36.4; O2SAT 100
--- NOTE | 2019-09-14 06:22 | PC.NURSE ---
Pt having a steady nose bleed after pressure, ice, afrin, given. More afrin used, soaked 2x2 inserted, nose clamp applied. Pt continue to be monitored. Will let day shift RN know
[2019-09-14 07:11] LABS: Glucose Point of Care 92 (65-105)
[2019-09-14] MEDS: CENTRAL LINE FLUSH 10 ML IV PUSH ×4 (07:20→21:11)
[2019-09-14] MEDS: LEVOTHYROXINE SODIUM 125 MCG TABLET PO (07:21)
[2019-09-14 07:35] LABS: Hemoglobin A1C 8.5 % (<5.7)
[2019-09-14] MEDS: FOLIC ACID 1 MG TABLET PO (09:56)
[2019-09-14] MEDS: DORZOLAMIDE/TIMOLOL OPHTH SOL 10 ML BOTTLE 1 DROP EACH EYE ×2 (09:56→21:11)
[2019-09-14] MEDS: predniSONE 10 MG TABLET PO (09:56)
[2019-09-14] MEDS: SIMETHICONE 80 MG TAB.CHEW PO ×4 (10:02→21:11)
[2019-09-14] MEDS: SILVERGEL (ELTA) 45 ML 1 APPLIC TOPICAL (10:02)
[2019-09-14 10:58] LABS: Blood Urea Nitrogen 40 mg/dL (9-20); Calcium 7.8 mg/dL (8.4-10.2); Carbon Dioxide 26 mmol/L (22-30); Chloride 102 mmol/L (98-107); Estimated CRCL calculation 46 ml/min; Estimated Glomerular Filt Rate 53; Glucose 131 mg/dL (75-110); Potassium 3.9 mmol/L (3.4-5.0); Sodium 135 mmol/L (137-145)
[2019-09-14 11:27] LABS: Glucose Point of Care 116 (65-105)
--- NOTE | 2019-09-14 12:41 | PM.PNGS ---
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 Will keep tube in place for now. Could consider removal if his strength and nutrition improve and he is going to be off chemo ling enough to heal. Ok to discharge from surgical standpoint. Subjective Subjective Date/Time Seen: 09/14/19 12:41 Tolerating diet. No problems with drainage around G-tube. Exam GI: Other: Dressing changed around G-tube. Minimal drainage around tube. Objective Data Vital Signs Vital Signs: Vital Signs - 24 hr 09/13/19 14:00 09/13/19 22:00 09/14/19 05:41 Temperature 36.4 C 36.4 C 36.4 C Pulse Rate 69 75 73 Respiratory Rate 16 16 18 Blood Pressure 115/60 128/68 139/71 Pulse Oximetry 98 98 100 Intake/Output Intake/Output: Intake & Output 09/11/19 09/12/19 09/13/19 09/14/19 23:59 23:59 23:59 23:59 Intake Total 1290 1710 2965 530 Output Total 1400 1250 1475 Balance -551 428 9186 530 Meds/Results Medications: Active Medications Generic Name Dose Route Start Last Admin Trade Name Freq PRN Reason Stop Dose Admin Apixaban 10 mg 09/12/19 21:00 09/13/19 20:38 Eliquis PO 10 mg Q12HR SARIKA Administration Dextrose 12.5 gm 09/10/19 16:03 Dextrose 50% Syringe IV PUSH PRN PRN Hypoglycemia Protocol Dorzolamide/Timolol 1 drop 09/11/19 21:00 09/14/19 09:56 Cosopt Eye Drops EACH EYE 1 drop Q12HR SARIKA Administration Folic Acid 1 mg 09/13/19 09:00 09/14/19 09:56 Folic Acid PO 1 mg DAILY SARIKA Administration Glucagon 1 mg 09/10/19 16:03 Glucagon For Inj IM PRN PRN Hypoglycemia Protocol Glucose 15 gm 09/10/19 16:03 Glutose 15 PO PRN PRN Hypoglycemia Protocol Dextrose 1,000 mls @ 50 mls/hr 09/10/19 15:14 Dextrose 10% IV CONT .Q20H PRN if PN is interrupted Dextrose 1,000 mls @ 100 mls/hr 09/10/19 16:03 Dextrose 5% 1,000 Ml IVPB PRN PRN Hypoglycemia Protocol Cefepime HCl 1 gm in 50 mls @ 100 mls/hr 09/11/19 06:00 09/14/19 06:00 Maxipime 1 Gm/D5w 50 Ml IVPB Infused Q24H SARIKA Infusion Insulin Aspart 0 units 09/13/19 08:00 09/14/19 07:22 Novolog SUB-Q Not Given TIDWM [facility] Protocol Insulin Glargine 18 units 09/13/19 21:00 09/13/19 20:40 Lantus 0.2 units/kg (18 units) 18 units SUB-Q Administration HS [facility] Levothyroxine Sodium 125 mcg 09/13/19 06:30 09/14/19 07:21 Synthroid PO 125 mcg DAILY@0630 [facility] Administration Morphine Sulfate 2 mg 09/10/19 18:45 09/14/19 09:55 Morphine Sulfate Inj IV PUSH 2 mg Q3HR PRN Administration Breakthrough Pain Ondansetron HCl 4 mg 09/09/19 16:21 Zofran Inj IV PUSH Q4H PRN Nausea Oxymetazoline HCl 1 spray 09/14/19 05:08 09/14/19 05:14 Afrin Nasal NASAL 1 spray Q12HR PRN Administration Congestion Prednisone 10 mg 09/14/19 08:00 09/14/19 09:56 Prednisone PO 10 mg DAILY@0800 [facility] Administration Silver Nitrate 1 applic 09/10/19 09:00 09/14/19 10:02 Silvergel TOPICAL 1 applic DAILY SARIKA Administration Simethicone 80 mg 09/13/19 17:00 09/14/19 10:02 Mylicon PO 80 mg QID SARIKA Administration Sitagliptin Phosphate 50 mg 09/14/19 09:00 09/14/19 09:56 Januvia PO 50 mg QAM SARIKA Administration Sodium Chloride 10 ml 09/13/19 22:00 09/14/19 07:20 Central Line Flush IV PUSH 10 ml Q8HR SARIKA Administration Sodium Chloride 10 ml 09/13/19 15:25 09/14/19 09:57 Central Line Flush IV PUSH 10 ml PRN PRN Administration Flush Radiology Results: ITS Impressions Chest X-Ray 09/09/19 14:42 IMPRESSION: No active cardiopulmonary disease Right Port-A-Cath Left pacemaker
[2019-09-14 14:00] VITALS: BP 122/74; PULSE 75; RESP 15; TEMP 36.7; O2SAT 100
--- NOTE | 2019-09-14 14:46 | P.PNIM_ITS ---
Progress Note: A&P Assessment and Plan (1) Epistaxis: Code(s): R04.0 - Epistaxis Status: Acute Assessment and Plan: * 09/14 Eliquis held * Trial of oxymetzoline spray * ENT evaluation (2) Right leg DVT: Qualifiers: Affected thrombotic vein of extremity: femoral Chronicity: acute Qualified Code(s): I82.411 - Acute embolism and thrombosis of right femoral vein Code(s): I82.401 - Acute embolism and thrombosis of unspecified deep veins of right lower extremity Status: Acute Assessment and Plan: * Due to NPO status, heparin begun 09/11 * 09/12 stopped heparin and began Eliquis 10mg PO q 12 hrs * 09/14 Day 4 anticoagulation but Eliquis held due to epistaxis * If recurrent bleeding after ENT eval and tx, consider IVC filter (3) Acute kidney injury: Code(s): N17.9 - Acute kidney failure, unspecified Status: Acute Assessment and Plan: * Due to a combination of dehydration and obstructive uropathy * Creatinine stabilized at 1.5 after hydration and franklin * Continue to monitor (4) Acute urinary retention: Code(s): R33.8 - Other retention of urine Status: Acute Assessment and Plan: * BPH and narcotics likely contributing to his acute urinary retention * Continue Franklin catheter (5) Esophageal cancer, stage IV: Code(s): C15.9 - Malignant neoplasm of esophagus, unspecified Status: Acute Assessment and Plan: * Patient has declined to a palliative performance score of 30 for approximately the last 2 months in spite of aggressive therapy * Oncology input noted and appreciated * Patient will likely require SNF rehab prior to returning home. (6) Dysphagia: Qualifiers: Dysphagia type: esophageal phase Qualified Code(s): R13.10 - Dysphagia, unspecified Code(s): R13.10 - Dysphagia, unspecified Status: Acute Assessment and Plan: * Doing well with PO intake (7) Atrial fibrillation: Qualifiers: Atrial fibrillation type: unspecified Qualified Code(s): I48.91 - Unspecified atrial fibrillation Code(s): I48.91 - Unspecified atrial fibrillation Status: Acute Assessment and Plan: * Paced rhythm * Eliquis PO (8) Protein calorie malnutrition: Qualifiers: Protein-calorie malnutrition severity: mild Qualified Code(s): E44.1 - Mild protein-calorie malnutrition Code(s): E46 - Unspecified protein-calorie malnutrition Status: Acute Assessment and Plan: * Albumin 2.3 at admission * Tolerating PO intake * Supplements ordered (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: Code(s): K31.6 - Fistula of stomach and duodenum Status: Acute Assessment and Plan: * G-tube replaced 09/11 (10) Rheumatoid arthritis: Qualifiers: Rheumatoid arthritis location: unspecified site Rheumatoid factor presence: unspecified presence Qualified Code(s): M06.9 - Rheumatoid arthritis, unspecified Code(s): M06.9 - Rheumatoid arthritis, unspecified Status: Acute Assessment and Plan: * 09/11 resumed MTX and prednisone (11) Diabetes mellitus: Qualifiers: Diabetes mellitus type: type 2 Diabetes mellitus bed bug exterminator insulin use: without assisted use Diabetes mellitus complication status: with hyperglycemia Qualified Code(s): E11.65 - Type 2 diabetes mellitus with hyperglycemia Code(s): E11.9 - Type 2 diabetes mellitus without complications
--- NOTE | 2019-09-14 14:46 | PM.IMPN ---
Progress Note: A&P Assessment and Plan (1) Epistaxis: Code(s): R04.0 - Epistaxis Status: Acute Assessment and Plan: 09/14 Eliquis held Trial of oxymetzoline spray ENT evaluation (2) Right leg DVT: Qualifiers: Affected thrombotic vein of extremity: femoral Chronicity: acute Qualified Code(s): I82.411 - Acute embolism and thrombosis of right femoral vein Code(s): I82.401 - Acute embolism and thrombosis of unspecified deep veins of right lower extremity Status: Acute Assessment and Plan: Due to NPO status, heparin begun 09/11 09/12 stopped heparin and began Eliquis 10mg PO q 12 hrs 09/14 Day 4 anticoagulation but Eliquis held due to epistaxis If recurrent bleeding after ENT eval and tx, consider IVC filter (3) Acute kidney injury: Code(s): N17.9 - Acute kidney failure, unspecified Status: Acute Assessment and Plan: Due to a combination of dehydration and obstructive uropathy Creatinine stabilized at 1.5 after hydration and franklin Continue to monitor (4) Acute urinary retention: Code(s): R33.8 - Other retention of urine Status: Acute Assessment and Plan: BPH and narcotics likely contributing to his acute urinary retention Continue Franklin catheter (5) Esophageal cancer, stage IV: Code(s): C15.9 - Malignant neoplasm of esophagus, unspecified Status: Acute Assessment and Plan: Patient has declined to a palliative performance score of 30 for approximately the last 2 months in spite of aggressive therapy Oncology input noted and appreciated Patient will likely require SNF rehab prior to returning home. (6) Dysphagia: Qualifiers: Dysphagia type: esophageal phase Qualified Code(s): R13.10 - Dysphagia, unspecified Code(s): R13.10 - Dysphagia, unspecified Status: Acute Assessment and Plan: Doing well with PO intake (7) Atrial fibrillation: Qualifiers: Atrial fibrillation type: unspecified Qualified Code(s): I48.91 - Unspecified atrial fibrillation Code(s): I48.91 - Unspecified atrial fibrillation Status: Acute Assessment and Plan: Paced rhythm Eliquis PO (8) Protein calorie malnutrition: Qualifiers: Protein-calorie malnutrition severity: mild Qualified Code(s): E44.1 - Mild protein-calorie malnutrition Code(s): E46 - Unspecified protein-calorie malnutrition Status: Acute Assessment and Plan: Albumin 2.3 at admission Tolerating PO intake Supplements ordered (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: Code(s): K31.6 - Fistula of stomach and duodenum Status: Acute Assessment and Plan: G-tube replaced 09/11 (10) Rheumatoid arthritis: Qualifiers: Rheumatoid arthritis location: unspecified site Rheumatoid factor presence: unspecified presence Qualified Code(s): M06.9 - Rheumatoid arthritis, unspecified Code(s): M06.9 - Rheumatoid arthritis, unspecified Status: Acute Assessment and Plan: 09/11 resumed MTX and prednisone (11) Diabetes mellitus: Qualifiers: Diabetes mellitus type: type 2 Diabetes mellitus parts counterman insulin use: without parts counterman use Diabetes mellitus complication status: with hyperglycemia Qualified Code(s): E11.65 - Type 2 diabetes mellitus with hyperglycemia Code(s): E11.9 - Type 2 diabetes mellitus without complications Status: Acute Assessment and Plan: QID SSI (12) Hypothyroidism: Qualifiers: Hypothyroidism type: acquired Qualified Code(s): E03.9 - Hypothyroidism, unspecified Code(s): E03.9 - Hypothyroidism, unspecified Status: Acute Assessment and Plan: PO levothyroxine (13) HTN (hypertension): Qualifiers: Hypertension type: essential hypertension Qualified Code(s): I10 - Essential (primary) hyperten
--- NOTE | 2019-09-14 16:51 | PCOTNOTE ---
The patient treatment was not able to be completed on 09/14/19
[2019-09-14 18:45] LABS: Glucose Point of Care 179 (65-105)
[2019-09-14] MEDS: INSULIN GLARGINE (*BKC) 100 UNITS/ML 18 UNITS SUB-Q (21:14)
[2019-09-14 21:22] LABS: Glucose Point of Care 193 (65-105)
[2019-09-14 22:00] VITALS: BP 121/64; PULSE 81; RESP 18; TEMP 35.9; O2SAT 98
[2019-09-15] MEDS: MORPHINE SULFATE 2 MG/ML INJ IV PUSH ×6 (00:33→21:33)
[2019-09-15 06:00] VITALS: BP 118/50; PULSE 80; RESP 20; TEMP 36.1; O2SAT 98
[2019-09-15] MEDS: LEVOTHYROXINE SODIUM 125 MCG TABLET PO (06:22)
[2019-09-15] MEDS: CENTRAL LINE FLUSH 10 ML IV PUSH ×3 (06:22→22:01)
[2019-09-15 06:48] LABS: Basophils Percent Auto 0.2 % (0.2-1.2); Eosinophils Absolute Auto 0.1 K/mm3 (0-0.3); Hematocrit 26.7 % (42.0-52.0); Hemoglobin 8.7 g/dL (14.0-18.0); Immature Granulocyte Absolute 0.56 K/mm3 (0.00-0.031); Immature Granulocyte Percent A 9.1 % (0-0.5); Immature Platelet Fraction Pct 4.4 % (0.9-11.2); Lymphocytes Absolute Auto 0.22 K/mm3 (0.9-3.2); Lymphocytes Percent Auto 3.6 % (18.3-44.2); Mean Corpuscular HGB Conc 32.6 g/dl (32-36); Mean Corpuscular Hemoglobin 31.3 pg (26-34); Mean Platelet Volume 11.7 fl (7.4-10.4); Monocytes Absolute Auto 0.2 K/mm3 (0.1-0.6); Monocytes Percent Auto 2.6 % (2.6-8.5); Neutrophils Absolute Auto 5.2 K/mm3 (1.3-6.7); Neutrophils Percent Auto 83.5 % (45.5-73.1); Platelet Count Result 31 k/mm3 (150-375); Red Blood Count 2.78 M/mm3 (4.6-6.20); Red Cell Distribution Width 16.8 % (11.5-14.5); White Blood Count 6.2 K/mm3 (4.5-10.0)
[2019-09-15 07:01] LABS: Alanine Aminotransferase 20 U/L (4-50); Albumin Level 2.3 g/dL (3.5-5.1); Alkaline Phosphatase 100 U/L (38-126); Aspartate Amino Transferase 14 U/L (17-59); Bilirubin,Total 0.8 mg/dL (0.2-1.3); Blood Urea Nitrogen 34 mg/dL (9-20); Calcium 7.7 mg/dL (8.4-10.2); Carbon Dioxide 26 mmol/L (22-30); Chloride 100 mmol/L (98-107); Estimated CRCL calculation 46 ml/min; Estimated Glomerular Filt Rate 53; Glucose 60 mg/dL (75-110); Magnesium 2.1 mg/dL (1.6-2.3); Phosphorus 3.2 mg/dL (2.5-4.5); Sodium 136 mmol/L (137-145)
[2019-09-15 07:02] LABS: Transferrin 114 mg/dL (206-381)
[2019-09-15 07:07] LABS: INR 1.6; Prothrombin Time 18.6 Seconds (11.1-14.7)
[2019-09-15 07:32] LABS: Glucose Point of Care 71 (65-105)
[2019-09-15 07:32] LABS: Platelet Estimate Decreased (Adequate)
[2019-09-15 07:33] LABS: Hypochromasia 1+ (NORMAL); Ovalocytes 1+ (NORMAL); Poikilocytosis 1+ (NORMAL)
[2019-09-15] MEDS: predniSONE 10 MG TABLET PO (08:51)
[2019-09-15] MEDS: DORZOLAMIDE/TIMOLOL OPHTH SOL 10 ML BOTTLE 1 DROP EACH EYE ×2 (08:52→21:44)
[2019-09-15] MEDS: SILVERGEL (ELTA) 45 ML 1 APPLIC TOPICAL (08:52)
[2019-09-15] MEDS: FOLIC ACID 1 MG TABLET PO (08:52)
--- NOTE | 2019-09-15 09:17 | P.PNIM_ITS ---
Progress Note: A&P Assessment and Plan (1) Epistaxis: Code(s): R04.0 - Epistaxis Status: Acute Assessment and Plan: * 09/14 Eliquis held * 09/14 Trial of oxymetzoline spray * ENT evaluation not available as inpatient * 09/15 plan to temp cautery with silver nitrate in order to resume Eliquis at lower dose 5 mg b.i.d. (2) Right leg DVT: Qualifiers: Affected thrombotic vein of extremity: femoral Chronicity: acute Qualified Code(s): I82.411 - Acute embolism and thrombosis of right femoral vein Code(s): I82.401 - Acute embolism and thrombosis of unspecified deep veins of right lower extremity Status: Acute Assessment and Plan: * Due to NPO status, heparin begun 09/11 * 09/12 stopped heparin and began Eliquis 10mg PO q 12 hrs * 09/14 Day 4 anticoagulation but Eliquis held due to epistaxis * If recurrent bleeding after cautery and lower dose Eliquis, consider IVC filter (3) Acute kidney injury: Code(s): N17.9 - Acute kidney failure, unspecified Status: Acute Assessment and Plan: * Due to a combination of dehydration and obstructive uropathy * Creatinine stabilized at 1.3 after hydration and franklin * Continue to monitor (4) Acute urinary retention: Code(s): R33.8 - Other retention of urine Status: Acute Assessment and Plan: * BPH and narcotics likely contributing to his acute urinary retention * Continue Franklin catheter (5) Esophageal cancer, stage IV: Code(s): C15.9 - Malignant neoplasm of esophagus, unspecified Status: Acute Assessment and Plan: * Patient has declined to a palliative performance score of 30 for approximately the last 2 months in spite of aggressive therapy * Oncology input noted and appreciated * Patient will likely require SNF rehab prior to returning home. (6) Dysphagia: Qualifiers: Dysphagia type: esophageal phase Qualified Code(s): R13.10 - Dysphagia, unspecified Code(s): R13.10 - Dysphagia, unspecified Status: Acute Assessment and Plan: * Doing well with PO intake (7) Atrial fibrillation: Qualifiers: Atrial fibrillation type: unspecified Qualified Code(s): I48.91 - Unspecified atrial fibrillation Code(s): I48.91 - Unspecified atrial fibrillation Status: Acute Assessment and Plan: * rate controlled * Eliquis PO 5mg bid once epistaxis is addressed (8) Protein calorie malnutrition: Qualifiers: Protein-calorie malnutrition severity: mild Qualified Code(s): E44.1 - Mild protein-calorie malnutrition Code(s): E46 - Unspecified protein-calorie malnutrition Status: Acute Assessment and Plan: * Albumin 2.3 at admission * Tolerating PO intake * Supplements ordered (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: Code(s): K31.6 - Fistula of stomach and duodenum Status: Acute Assessment and Plan: * G-tube replaced 09/11 and to remain in terminal make up operator (10) Rheumatoid arthritis: Qualifiers: Rheumatoid arthritis location: unspecified site Rheumatoid factor presence: unspecified presence Qualified Code(s): M06.9 - Rheumatoid arthritis, unspecified Code(s): M06.9 - Rheumatoid arthritis, unspecified Status: Acute Assessment and Plan: * 09/11 resumed MTX and prednisone (11) Diabetes mellitus: Qualifiers: Diabetes mellitus type: type 2 Diabetes mellitus terminal make up operator insulin use: without terminal make up operator
--- NOTE | 2019-09-15 09:17 | PM.IMPN ---
Progress Note: A&P Assessment and Plan (1) Epistaxis: Code(s): R04.0 - Epistaxis Status: Acute Assessment and Plan: 09/14 Eliquis held 09/14 Trial of oxymetzoline spray ENT evaluation not available as inpatient 09/15 plan to temp cautery with silver nitrate in order to resume Eliquis at lower dose 5 mg b.i.d. (2) Right leg DVT: Qualifiers: Affected thrombotic vein of extremity: femoral Chronicity: acute Qualified Code(s): I82.411 - Acute embolism and thrombosis of right femoral vein Code(s): I82.401 - Acute embolism and thrombosis of unspecified deep veins of right lower extremity Status: Acute Assessment and Plan: Due to NPO status, heparin begun 09/11 09/12 stopped heparin and began Eliquis 10mg PO q 12 hrs 09/14 Day 4 anticoagulation but Eliquis held due to epistaxis If recurrent bleeding after cautery and lower dose Eliquis, consider IVC filter (3) Acute kidney injury: Code(s): N17.9 - Acute kidney failure, unspecified Status: Acute Assessment and Plan: Due to a combination of dehydration and obstructive uropathy Creatinine stabilized at 1.3 after hydration and franklin Continue to monitor (4) Acute urinary retention: Code(s): R33.8 - Other retention of urine Status: Acute Assessment and Plan: BPH and narcotics likely contributing to his acute urinary retention Continue Franklin catheter (5) Esophageal cancer, stage IV: Code(s): C15.9 - Malignant neoplasm of esophagus, unspecified Status: Acute Assessment and Plan: Patient has declined to a palliative performance score of 30 for approximately the last 2 months in spite of aggressive therapy Oncology input noted and appreciated Patient will likely require SNF rehab prior to returning home. (6) Dysphagia: Qualifiers: Dysphagia type: esophageal phase Qualified Code(s): R13.10 - Dysphagia, unspecified Code(s): R13.10 - Dysphagia, unspecified Status: Acute Assessment and Plan: Doing well with PO intake (7) Atrial fibrillation: Qualifiers: Atrial fibrillation type: unspecified Qualified Code(s): I48.91 - Unspecified atrial fibrillation Code(s): I48.91 - Unspecified atrial fibrillation Status: Acute Assessment and Plan: rate controlled Eliquis PO 5mg bid once epistaxis is addressed (8) Protein calorie malnutrition: Qualifiers: Protein-calorie malnutrition severity: mild Qualified Code(s): E44.1 - Mild protein-calorie malnutrition Code(s): E46 - Unspecified protein-calorie malnutrition Status: Acute Assessment and Plan: Albumin 2.3 at admission Tolerating PO intake Supplements ordered (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: Code(s): K31.6 - Fistula of stomach and duodenum Status: Acute Assessment and Plan: G-tube replaced 09/11 and to remain in residential (10) Rheumatoid arthritis: Qualifiers: Rheumatoid arthritis location: unspecified site Rheumatoid factor presence: unspecified presence Qualified Code(s): M06.9 - Rheumatoid arthritis, unspecified Code(s): M06.9 - Rheumatoid arthritis, unspecified Status: Acute Assessment and Plan: 09/11 resumed MTX and prednisone (11) Diabetes mellitus: Qualifiers: Diabetes mellitus type: type 2 Diabetes mellitus watermaster insulin use: without watermaster use Diabetes mellitus complication status: with hyperglycemia Qualified Code(s): E11.65 - Type 2 diabetes mellitus with hyperglycemia Code(s): E11.9 - Type 2 diabetes mellitus without complications Status: Acute Assessment and Plan: Justice Lowe, SSI (12) Hypothyroidism: Qualifiers: Hypothyroidism type: acquired Qualified Code(s): E03.9 - Hypothyroidism, unspecified Code(s): E03.9 - Hypothyroidism, unspecified
--- NOTE | 2019-09-15 11:44 | PCNFU ---
Nutrition Follow-Up Complete: Altered GI fxn as related to fistula as evidenced by NPO Goal: Meet estimated energy needs Progressing towards goal. Pt current nutrition is Full liquids . Nutrition recommendation: Agree Last recorded weight is 87.2 kg. Bowel Motility:Active Bowel sounds reported, No BM documented. Labs Reviewed:Na 136, Hgb 26.7,Hgb 8.7 Meds Noted:Januvia,Prednisone, Synthroid, Folic Acid Additional Notes: Patient states to tolerating full liquids well. Rotating items-oatmeal, juice of some sort, sherbert, coffee, broth of some sort, V8 juice and Ensure Enlive, at least 75% eaten. Patient stats to tolerating liquids well. G tube in place- not being used at this time. Monitoring: Will monitor every 3 days.
[2019-09-15 12:21] LABS: Blood Urea Nitrogen 36 mg/dL (9-20); Carbon Dioxide 26 mmol/L (22-30); Chloride 100 mmol/L (98-107); Estimated CRCL calculation 43 ml/min; Estimated Glomerular Filt Rate 49; Glucose 184 mg/dL (75-110); Potassium 4.4 mmol/L (3.4-5.0); Sodium 135 mmol/L (137-145)
[2019-09-15 12:23] LABS: Glucose Point of Care 178 (65-105)
[2019-09-15] MEDS: SILVER NITRATE (*SP) STICK 1 EACH TOPICAL (13:27)
[2019-09-15] MEDS: SIMETHICONE 80 MG TAB.CHEW PO ×3 (13:27→21:44)
[2019-09-15 14:00] VITALS: BP 107/52; PULSE 81; RESP 12; TEMP 36.6; O2SAT 98
[2019-09-15 15:54] LABS: Triglycerides 261 mg/dL (<150)
[2019-09-15] MEDS: INSULIN ASPART (*BKC) 100 UNITS/ML SUB-Q (17:04)
[2019-09-15 17:32] LABS: Glucose Point of Care 201 (65-105)
[2019-09-15] MEDS: APIXABAN 2.5 MG TABLET PO (18:29)
[2019-09-15 22:00] VITALS: BP 110/53; PULSE 66; RESP 20; TEMP 36.2; O2SAT 99
[2019-09-15 22:21] LABS: Glucose Point of Care 147 (65-105)
--- NOTE | 2019-09-16 03:12 | PC.NURSE ---
Mynor held this evening 09/15/19 due to BG of 147 and a full liquid diet, Donna Gonzalez notified.
[2019-09-16] MEDS: MORPHINE SULFATE 2 MG/ML INJ IV PUSH ×3 (04:00→20:30)
--- NOTE | 2019-09-16 04:19 | PC.NURSE ---
Pt currently having heparin flushes held for bleeding precautions, will wait to reaccess chest port until vascular access nurse can advise.
[2019-09-16] MEDS: CENTRAL LINE FLUSH 10 ML IV PUSH ×4 (05:48→21:02)
[2019-09-16] MEDS: LEVOTHYROXINE SODIUM 125 MCG TABLET PO (05:48)
[2019-09-16 06:00] VITALS: BP 124/63; PULSE 77; RESP 20; TEMP 36.6; O2SAT 100
[2019-09-16 06:06] LABS: Hematocrit 25.9 % (42.0-52.0); Hemoglobin 8.5 g/dL (14.0-18.0); Mean Corpuscular HGB Conc 32.8 g/dl (32-36); Mean Corpuscular Hemoglobin 31.6 pg (26-34); Mean Corpuscular Volume 96.3 fl (80-100); Mean Platelet Volume 11.2 fl (7.4-10.4); Platelet Count Result 27 k/mm3 (150-375); Red Blood Count 2.69 M/mm3 (4.6-6.20)
[2019-09-16 06:16] LABS: Blood Urea Nitrogen 30 mg/dL (9-20); Calcium 7.5 mg/dL (8.4-10.2); Carbon Dioxide 27 mmol/L (22-30); Chloride 100 mmol/L (98-107); Estimated CRCL calculation 50 ml/min; Estimated Glomerular Filt Rate 58; Glucose 74 mg/dL (75-110); Phosphorus 3.3 mg/dL (2.5-4.5); Potassium 3.9 mmol/L (3.4-5.0); Sodium 134 mmol/L (137-145)
--- NOTE | 2019-09-16 07:31 | PC.NURSE ---
Pt POC BG 66 while waiting for breakfast tray. Pt requested orange juice while waiting for breakfast tray. Patti Clay will recheck in 15 minutes.
[2019-09-16 07:32] LABS: Glucose Point of Care 66 (65-105)
[2019-09-16] MEDS: predniSONE 10 MG TABLET PO (08:32)
[2019-09-16] MEDS: SIMETHICONE 80 MG TAB.CHEW PO ×4 (08:33→21:01)
[2019-09-16] MEDS: APIXABAN 5 MG TABLET PO ×2 (08:33→21:01)
[2019-09-16] MEDS: DORZOLAMIDE/TIMOLOL OPHTH SOL 10 ML BOTTLE 1 DROP EACH EYE ×2 (08:33→21:00)
[2019-09-16] MEDS: FOLIC ACID 1 MG TABLET PO (08:34)
[2019-09-16 08:48] LABS: Glucose Point of Care 90 (65-105)
[2019-09-16] MEDS: SILVERGEL (ELTA) 45 ML 1 APPLIC TOPICAL (09:49)
--- NOTE | 2019-09-16 10:26 | PC.NURSE ---
Dressings to coccyx and L heel changed by student nurse and teacher today this morning.
--- NOTE | 2019-09-16 12:12 | PM.PROC ---
Procedure Note - Detailed Date of procedure: 09/11/19 Pre-op diagnosis: Gastrocutaneous fistula Post-op diagnosis: same Procedure performed: Replacement of Gastrostomy Tube Description of procedure: Patient was placed supine in hospital bed. The bandage around the previous G-tube site was removed. The gastrostomy tract was probed with a Q-tip. The tract seemed to pass all the way into the stomach still. A 16 [place] gastrostomy tube was then carefully advanced along the G-tube tract. This advanced with mild resistance, but then eventually advanced all the way into the stomach. The balloon was then inflated with 20 cc of saline. Gastric contents were able to be aspirated. Stoma paste was applied around the insertion site, followed by 4 x 4 gauze and Medipore tape. Anesthesia: none Surgeon: Herbert Vogel DO Estimated blood loss (mL): 1 Complications: No immediate complications Condition: stable Disposition: floor Findings: This is an 83-year-old man who presented with a malfunctioning gastrostomy tube. Gastrostomy with tube was placed due to significant dysphagia from esophageal cancer. Since the G-tube was placed, his swallowing has improved and he no longer is in need of the G-tube. The G-tube was removed several days ago at bedside, but he continues to have drainage from the tract. A persistent gastric cutaneous fistula was noted, and although this seemed to close up most away, he does still have a persistent opening with gastric contents draining. The decision was made to replace the G-tube at the bedside to allow this tract to her further heal up so that he can continue eating. Sixteen [place] G-tube was replaced at the bedside. This appeared to have a good snug fit once it was replaced and will hopefully have minimal drainage around the G-tube like it was before. Will plan to get a Gastrografin KUB tomorrow to assess for G-tube in proper position before deciding to flush the tube.
[2019-09-16 12:32] LABS: Blood Urea Nitrogen 31 mg/dL (9-20); Calcium 7.5 mg/dL (8.4-10.2); Carbon Dioxide 25 mmol/L (22-30); Chloride 100 mmol/L (98-107); Estimated CRCL calculation 46 ml/min; Estimated Glomerular Filt Rate 53; Glucose 214 mg/dL (75-110); Potassium 4.2 mmol/L (3.4-5.0); Sodium 133 mmol/L (137-145)
[2019-09-16 12:56] LABS: Glucose Point of Care 190 (65-105)
--- NOTE | 2019-09-16 13:36 | P.PNIM_ITS ---
Progress Note: A&P Assessment and Plan (1) Epistaxis: Code(s): R04.0 - Epistaxis Status: Acute Assessment and Plan: * 09/14 Eliquis held initially and restarted last p.m. 09/15 * 09/14 Trial of oxymetzoline spray * ENT evaluation not available as inpatient * cautery with silver nitrate by Dr. Shelton in order to resume Eliquis at lower dose 5 mg b.i.d p.m.09/15 (2) Right leg DVT: Qualifiers: Affected thrombotic vein of extremity: femoral Chronicity: acute Qualified Code(s): I82.411 - Acute embolism and thrombosis of right femoral vein Code(s): I82.401 - Acute embolism and thrombosis of unspecified deep veins of right lower extremity Status: Acute Assessment and Plan: * Due to NPO status, heparin begun 09/11 * 09/12 stopped heparin and began Eliquis 10mg PO q 12 hrs * 09/14 Day 4 anticoagulation but Eliquis held due to epistaxis (3) Acute kidney injury: Code(s): N17.9 - Acute kidney failure, unspecified Status: Acute Assessment and Plan: * Due to a combination of dehydration and obstructive uropathy * Creatinine stabilized at 1.3 after hydration and franklin * Continue to monitor (4) Acute urinary retention: Code(s): R33.8 - Other retention of urine Status: Acute Assessment and Plan: * BPH and narcotics likely contributing to his acute urinary retention * Continue Franklin catheter (5) Esophageal cancer, stage IV: Code(s): C15.9 - Malignant neoplasm of esophagus, unspecified Status: Acute Assessment and Plan: * Patient has declined to a palliative performance score of 30 for approximately the last 2 months in spite of aggressive therapy * Oncology input noted and appreciated * Patient will likely require SNF rehab prior to returning home and CC working on that. (6) Dysphagia: Qualifiers: Dysphagia type: esophageal phase Qualified Code(s): R13.10 - Dysphagia, unspecified Code(s): R13.10 - Dysphagia, unspecified Status: Acute Assessment and Plan: * Doing well with PO intake (7) Atrial fibrillation: Qualifiers: Atrial fibrillation type: unspecified Qualified Code(s): I48.91 - Unspecified atrial fibrillation Code(s): I48.91 - Unspecified atrial fibrillation Status: Acute Assessment and Plan: * rate controlled * Eliquis PO 5mg bid restarted last pm (8) Protein calorie malnutrition: Qualifiers: Protein-calorie malnutrition severity: mild Qualified Code(s): E44.1 - Mild protein-calorie malnutrition Code(s): E46 - Unspecified protein-calorie malnutrition Status: Acute Assessment and Plan: * Albumin 2.3 at admission * Tolerating PO intake * Supplements ordered (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: Code(s): K31.6 - Fistula of stomach and duodenum Status: Acute Assessment and Plan: * G-tube replaced 09/11 and to remain in extermination supervisor (10) Rheumatoid arthritis: Qualifiers: Rheumatoid arthritis location: unspecified site Rheumatoid factor presence: unspecified presence Qualified Code(s): M06.9 - Rheumatoid arthritis, unspecified Code(s): M06.9 - Rheumatoid arthritis, unspecified Status: Acute Assessment and Plan: * 09/11 resumed MTX and prednisone (11) Diabetes mellitus: Qualifiers: Diabetes mellitus type: type 2 Diabetes mellitus jail insulin use: without jail use Diabetes mellitus c
--- NOTE | 2019-09-16 13:36 | PM.IMPN ---
Progress Note: A&P Assessment and Plan (1) Epistaxis: Code(s): R04.0 - Epistaxis Status: Acute Assessment and Plan: 09/14 Eliquis held initially and restarted last p.m. 09/15 09/14 Trial of oxymetzoline spray ENT evaluation not available as inpatient cautery with silver nitrate by Dr. Shelton in order to resume Eliquis at lower dose 5 mg b.i.d p.m.09/15 (2) Right leg DVT: Qualifiers: Affected thrombotic vein of extremity: femoral Chronicity: acute Qualified Code(s): I82.411 - Acute embolism and thrombosis of right femoral vein Code(s): I82.401 - Acute embolism and thrombosis of unspecified deep veins of right lower extremity Status: Acute Assessment and Plan: Due to NPO status, heparin begun 09/11 09/12 stopped heparin and began Eliquis 10mg PO q 12 hrs 09/14 Day 4 anticoagulation but Eliquis held due to epistaxis (3) Acute kidney injury: Code(s): N17.9 - Acute kidney failure, unspecified Status: Acute Assessment and Plan: Due to a combination of dehydration and obstructive uropathy Creatinine stabilized at 1.3 after hydration and franklin Continue to monitor (4) Acute urinary retention: Code(s): R33.8 - Other retention of urine Status: Acute Assessment and Plan: BPH and narcotics likely contributing to his acute urinary retention Continue Franklni catheter (5) Esophageal cancer, stage IV: Code(s): C15.9 - Malignant neoplasm of esophagus, unspecified Status: Acute Assessment and Plan: Patient has declined to a palliative performance score of 30 for approximately the last 2 months in spite of aggressive therapy Oncology input noted and appreciated Patient will likely require SNF rehab prior to returning home and CC working on that. (6) Dysphagia: Qualifiers: Dysphagia type: esophageal phase Qualified Code(s): R13.10 - Dysphagia, unspecified Code(s): R13.10 - Dysphagia, unspecified Status: Acute Assessment and Plan: Doing well with PO intake (7) Atrial fibrillation: Qualifiers: Atrial fibrillation type: unspecified Qualified Code(s): I48.91 - Unspecified atrial fibrillation Code(s): I48.91 - Unspecified atrial fibrillation Status: Acute Assessment and Plan: rate controlled Eliquis PO 5mg bid restarted last pm (8) Protein calorie malnutrition: Qualifiers: Protein-calorie malnutrition severity: mild Qualified Code(s): E44.1 - Mild protein-calorie malnutrition Code(s): E46 - Unspecified protein-calorie malnutrition Status: Acute Assessment and Plan: Albumin 2.3 at admission Tolerating PO intake Supplements ordered (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: Code(s): K31.6 - Fistula of stomach and duodenum Status: Acute Assessment and Plan: G-tube replaced 09/11 and to remain in superintendent terminal (10) Rheumatoid arthritis: Qualifiers: Rheumatoid arthritis location: unspecified site Rheumatoid factor presence: unspecified presence Qualified Code(s): M06.9 - Rheumatoid arthritis, unspecified Code(s): M06.9 - Rheumatoid arthritis, unspecified Status: Acute Assessment and Plan: 09/11 resumed MTX and prednisone (11) Diabetes mellitus: Qualifiers: Diabetes mellitus type: type 2 Diabetes mellitus custodial insulin use: without custodial use Diabetes mellitus complication status: with hyperglycemia Qualified Code(s): E11.65 - Type 2 diabetes mellitus with hyperglycemia Code(s): E11.9 - Type 2 diabetes mellitus without complications Status: Acute Assessment and Plan: Justice Lowe, GLADIS (12) Hypothyroidism: Qualifiers: Hypothyroidism type: acquired Qualified Code(s): E03.9 - Hypothyroidism, unspecified Code(s): E03.9 - Hypothyroidism, unspecified Status: Acute
[2019-09-16 13:44] VITALS: BP 145/69; PULSE 75; RESP 18; TEMP 36.3; O2SAT 98
[2019-09-16 14:00] VITALS: BP 104/73; PULSE 74; RESP 20; TEMP 35.9; O2SAT 98
--- NOTE | 2019-09-16 16:11 | PC.NURSE ---
On 09/16/19, the student,Beni Carmona, provided care and completed [employer] documentation on this patient. I have reviewed the student's documentation and agree with the findings except the wound assessment for the lower abd, documentation for episiotomy was incorrect was to be documentation of a puncture.
[2019-09-16 17:06] LABS: Glucose Point of Care 236 (65-105)
[2019-09-16] MEDS: INSULIN ASPART (*BKC) 100 UNITS/ML SUB-Q (17:22)
[2019-09-16 19:56] LABS: Glucose Point of Care 254 (65-105)
[2019-09-16] MEDS: INSULIN GLARGINE (*BKC) 100 UNITS/ML 10 UNITS SUB-Q (21:01)
[2019-09-16 22:37] VITALS: BP 106/60; PULSE 80; RESP 16; TEMP 35.7; O2SAT 100
[2019-09-17] MEDS: MORPHINE SULFATE 2 MG/ML INJ IV PUSH ×2 (04:04→08:51)
[2019-09-17 05:30] LABS: Blood Urea Nitrogen 26 mg/dL (9-20); Calcium 7.4 mg/dL (8.4-10.2); Carbon Dioxide 27 mmol/L (22-30); Chloride 101 mmol/L (98-107); Estimated CRCL calculation 54 ml/min; Estimated Glomerular Filt Rate > 60; Glucose 91 mg/dL (75-110); Phosphorus 3.3 mg/dL (2.5-4.5); Potassium 4.1 mmol/L (3.4-5.0); Sodium 133 mmol/L (137-145)
[2019-09-17 05:39] VITALS: BP 127/59; PULSE 72; RESP 16; TEMP 35.6; O2SAT 100
[2019-09-17] MEDS: CENTRAL LINE FLUSH 10 ML IV PUSH ×3 (05:46→22:40)
[2019-09-17] MEDS: LEVOTHYROXINE SODIUM 125 MCG TABLET PO (05:46)
[2019-09-17] MEDS: predniSONE 10 MG TABLET PO (08:08)
[2019-09-17 08:09] LABS: Glucose Point of Care 119 (65-105)
[2019-09-17] MEDS: DORZOLAMIDE/TIMOLOL OPHTH SOL 10 ML BOTTLE 1 DROP EACH EYE ×2 (08:09→22:24)
[2019-09-17] MEDS: SIMETHICONE 80 MG TAB.CHEW PO ×4 (08:09→22:22)
[2019-09-17] MEDS: APIXABAN 5 MG TABLET PO ×2 (08:09→22:24)
[2019-09-17] MEDS: FOLIC ACID 1 MG TABLET PO (08:09)
[2019-09-17 10:52] LABS: Blood Urea Nitrogen 23 mg/dL (9-20); Calcium 7.3 mg/dL (8.4-10.2); Carbon Dioxide 25 mmol/L (22-30); Chloride 98 mmol/L (98-107); Estimated CRCL calculation 54 ml/min; Estimated Glomerular Filt Rate > 60; Glucose 173 mg/dL (75-110); Potassium 4.1 mmol/L (3.4-5.0); Sodium 133 mmol/L (137-145)
[2019-09-17] MEDS: SILVERGEL (ELTA) 45 ML 1 APPLIC TOPICAL (11:24)
--- NOTE | 2019-09-17 11:36 | P.PNIM_ITS ---
Progress Note: A&P Assessment and Plan (1) Epistaxis: Code(s): R04.0 - Epistaxis Status: Acute Assessment and Plan: * 09/14 Eliquis held initially and restarted p.m. 09/15 * 09/14 Trial of oxymetzoline spray * ENT evaluation not available as inpatient * cautery with silver nitrate by Dr. Shelton in order to resume Eliquis at lower dose 5 mg b.i.d p.m.09/15 (2) Right leg DVT: Qualifiers: Affected thrombotic vein of extremity: femoral Chronicity: acute Qualified Code(s): I82.411 - Acute embolism and thrombosis of right femoral vein Code(s): I82.401 - Acute embolism and thrombosis of unspecified deep veins of right lower extremity Status: Acute Assessment and Plan: * Due to NPO status, heparin begun 09/11 * 09/12 stopped heparin and began Eliquis 10mg PO q 12 hrs * 09/14 Day 4 anticoagulation but Eliquis held due to epistaxis and restarted pm 09/15 (3) Acute kidney injury: Code(s): N17.9 - Acute kidney failure, unspecified Status: Acute Assessment and Plan: * Due to a combination of dehydration and obstructive uropathy * Creatinine stabilized , now at 1.1 after hydration and franklin * Continue to monitor (4) Acute urinary retention: Code(s): R33.8 - Other retention of urine Status: Acute Assessment and Plan: * BPH and narcotics likely contributing to his acute urinary retention * Continue Franklin catheter (5) Esophageal cancer, stage IV: Code(s): C15.9 - Malignant neoplasm of esophagus, unspecified Status: Acute Assessment and Plan: * Patient has declined to a palliative performance score of 30 for approximately the last 2 months in spite of aggressive therapy * Oncology input noted and appreciated * Patient will likely require SNF rehab prior to returning home and CC working on that. (6) Dysphagia: Qualifiers: Dysphagia type: esophageal phase Qualified Code(s): R13.10 - Dysphagia, unspecified Code(s): R13.10 - Dysphagia, unspecified Status: Acute Assessment and Plan: * Doing well with PO intake (7) Atrial fibrillation: Qualifiers: Atrial fibrillation type: unspecified Qualified Code(s): I48.91 - Unspecified atrial fibrillation Code(s): I48.91 - Unspecified atrial fibrillation Status: Acute Assessment and Plan: * rate controlled * Eliquis PO 5mg bid restarted (8) Protein calorie malnutrition: Qualifiers: Protein-calorie malnutrition severity: mild Qualified Code(s): E44.1 - Mild protein-calorie malnutrition Code(s): E46 - Unspecified protein-calorie malnutrition Status: Acute Assessment and Plan: * Albumin 2.3 at admission * Tolerating PO intake * Supplements ordered (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
--- NOTE | 2019-09-17 11:36 | PM.IMPN ---
Progress Note: A&P Assessment and Plan (1) Epistaxis: Code(s): R04.0 - Epistaxis Status: Acute Assessment and Plan: 09/14 Eliquis held initially and restarted p.m. 09/15 09/14 Trial of oxymetzoline spray ENT evaluation not available as inpatient cautery with silver nitrate by Dr. Shelton in order to resume Eliquis at lower dose 5 mg b.i.d p.m.09/15 (2) Right leg DVT: Qualifiers: Affected thrombotic vein of extremity: femoral Chronicity: acute Qualified Code(s): I82.411 - Acute embolism and thrombosis of right femoral vein Code(s): I82.401 - Acute embolism and thrombosis of unspecified deep veins of right lower extremity Status: Acute Assessment and Plan: Due to NPO status, heparin begun 09/11 09/12 stopped heparin and began Eliquis 10mg PO q 12 hrs 09/14 Day 4 anticoagulation but Eliquis held due to epistaxis and restarted pm 09/15 (3) Acute kidney injury: Code(s): N17.9 - Acute kidney failure, unspecified Status: Acute Assessment and Plan: Due to a combination of dehydration and obstructive uropathy Creatinine stabilized , now at 1.1 after hydration and franklin Continue to monitor (4) Acute urinary retention: Code(s): R33.8 - Other retention of urine Status: Acute Assessment and Plan: BPH and narcotics likely contributing to his acute urinary retention Continue Franklin catheter (5) Esophageal cancer, stage IV: Code(s): C15.9 - Malignant neoplasm of esophagus, unspecified Status: Acute Assessment and Plan: Patient has declined to a palliative performance score of 30 for approximately the last 2 months in spite of aggressive therapy Oncology input noted and appreciated Patient will likely require SNF rehab prior to returning home and CC working on that. (6) Dysphagia: Qualifiers: Dysphagia type: esophageal phase Qualified Code(s): R13.10 - Dysphagia, unspecified Code(s): R13.10 - Dysphagia, unspecified Status: Acute Assessment and Plan: Doing well with PO intake (7) Atrial fibrillation: Qualifiers: Atrial fibrillation type: unspecified Qualified Code(s): I48.91 - Unspecified atrial fibrillation Code(s): I48.91 - Unspecified atrial fibrillation Status: Acute Assessment and Plan: rate controlled Eliquis PO 5mg bid restarted (8) Protein calorie malnutrition: Qualifiers: Protein-calorie malnutrition severity: mild Qualified Code(s): E44.1 - Mild protein-calorie malnutrition Code(s): E46 - Unspecified protein-calorie malnutrition Status: Acute Assessment and Plan: Albumin 2.3 at admission Tolerating PO intake Supplements ordered (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: Code(s): K31.6 - Fistula of stomach and duodenum Status: Acute Assessment and Plan: G-tube replaced 09/11 and to remain in termination clerk (10) Rheumatoid arthritis: Qualifiers: Rheumatoid arthritis location: unspecified site Rheumatoid factor presence: unspecified presence Qualified Code(s): M06.9 - Rheumatoid arthritis, unspecified Code(s): M06.9 - Rheumatoid arthritis, unspecified Status: Acute Assessment and Plan: 09/11 resumed MTX and prednisone (11) Diabetes mellitus: Qualifiers: Diabetes mellitus type: type 2 Diabetes mellitus termination clerk insulin use: without mcfp use Diabetes mellitus complication status: with hyperglycemia Qualified Code(s): E11.65 - Type 2 diabetes mellitus with hyperglycemia Code(s): E11.9 - Type 2 diabetes mellitus without complications Status: Acute Assessment and Plan: Justice Lowe SSI (12) Hypothyroidism: Qualifiers: Hypothyroidism type: acquired Qualified Code(s): E03.9 - Hypothyroidism, unspecified Code(s): E03.9 - Hypothyroidism, unspecified
[2019-09-17 12:00] LABS: Glucose Point of Care 207 (65-105)
[2019-09-17] MEDS: INSULIN ASPART (*BKC) 100 UNITS/ML SUB-Q (12:06)
[2019-09-17 14:00] VITALS: BP 106/61; PULSE 70; RESP 14; TEMP 36.7; O2SAT 98
[2019-09-17 16:25] LABS: Triglycerides 248 mg/dL (<150)
[2019-09-17 17:08] LABS: Glucose Point of Care 179 (65-105)
[2019-09-17 22:00] VITALS: BP 109/67; PULSE 81; RESP 22; TEMP 36; O2SAT 98
[2019-09-17 22:35] LABS: Glucose Point of Care 140 (65-105)
[2019-09-17] MEDS: INSULIN GLARGINE (*BKC) 100 UNITS/ML 10 UNITS SUB-Q (22:37)
[2019-09-18 05:49] VITALS: BP 128/72; PULSE 82; RESP 20; TEMP 37; O2SAT 97
[2019-09-18] MEDS: LEVOTHYROXINE SODIUM 125 MCG TABLET PO (06:28)
[2019-09-18] MEDS: CENTRAL LINE FLUSH 10 ML IV PUSH ×2 (06:29→13:06)
[2019-09-18 06:50] LABS: Basophils Percent Auto 0.3 % (0.2-1.2); Eosinophils Absolute Auto 0.1 K/mm3 (0-0.3); Eosinophils Percent Auto 1.4 % (0-4.4); Hematocrit 26.9 % (42.0-52.0); Hemoglobin 8.7 g/dL (14.0-18.0); Immature Granulocyte Absolute 0.03 K/mm3 (0.00-0.031); Immature Granulocyte Percent A 0.9 % (0-0.5); Immature Platelet Fraction Pct 5.6 % (0.9-11.2); Lymphocytes Absolute Auto 0.26 K/mm3 (0.9-3.2); Lymphocytes Percent Auto 7.4 % (18.3-44.2); Mean Corpuscular HGB Conc 32.3 g/dl (32-36); Mean Corpuscular Hemoglobin 31.1 pg (26-34); Mean Corpuscular Volume 96.1 fl (80-100); Mean Platelet Volume 12.4 fl (7.4-10.4); Monocytes Absolute Auto 0.3 K/mm3 (0.1-0.6); Monocytes Percent Auto 7.1 % (2.6-8.5); Neutrophils Absolute Auto 2.9 K/mm3 (1.3-6.7); Neutrophils Percent Auto 82.9 % (45.5-73.1); Platelet Count Result 31 k/mm3 (150-375); Red Cell Distribution Width 17.2 % (11.5-14.5); White Blood Count 3.5 K/mm3 (4.5-10.0)
[2019-09-18 06:58] LABS: Alanine Aminotransferase 16 U/L (4-50); Albumin Level 2.4 g/dL (3.5-5.1); Alkaline Phosphatase 105 U/L (38-126); Aspartate Amino Transferase 13 U/L (17-59); Bilirubin,Total 0.6 mg/dL (0.2-1.3); Blood Urea Nitrogen 21 mg/dL (9-20); Calcium 7.8 mg/dL (8.4-10.2); Carbon Dioxide 24 mmol/L (22-30); Chloride 99 mmol/L (98-107); Estimated CRCL calculation 54 ml/min; Estimated Glomerular Filt Rate > 60; Glucose 69 mg/dL (75-110); Sodium 137 mmol/L (137-145)
[2019-09-18 07:48] LABS: Glucose Point of Care 81 (65-105)
[2019-09-18] MEDS: predniSONE 10 MG TABLET PO (09:03)
[2019-09-18] MEDS: APIXABAN 5 MG TABLET PO (09:03)
[2019-09-18] MEDS: DORZOLAMIDE/TIMOLOL OPHTH SOL 10 ML BOTTLE 1 DROP EACH EYE (09:04)
[2019-09-18] MEDS: SIMETHICONE 80 MG TAB.CHEW PO ×2 (09:04→12:52)
[2019-09-18] MEDS: FOLIC ACID 1 MG TABLET PO (09:04)
[2019-09-18] MEDS: SILVERGEL (ELTA) 45 ML 1 APPLIC TOPICAL (09:04)
[2019-09-18] MEDS: HEPARIN SOD FLUSH 500 UNITS/5 ML SYRINGE IV PUSH (12:57)
--- NOTE | 2019-09-18 13:28 | PCDIET ---
Addendum entered by Kusum Barbosa RD, LDN 09/18/19 13:47: Edu provided on protein for wound healing and pt encouraged to consume at every meal. Pt plans to take home Enlive that has piled up in room to consume. Original Note: Nutrition Follow-Up Complete: Altered GI fxn as related to fistula as evidenced by NPO Meet estimated energy needs Goal:Progressing towards goal. Continue with current goal. Pt current nutrition is Full Liquids advancing to Level 5 minced and moist at dinner. Nutrition recommendation: Agree Last recorded weight is 88.4 kg. up from 83.5kg on assessment Bowel Motility: No BM this visit per pt Labs Reviewed: 09/18 Hgb 8.7, Hct 26.9, Alb 2.4, Triglycerides 248, BUN 21,Glucose 81 Meds Noted: Insulin, Januvia, Synthyroid, folic acid, cefepime Additional Notes: Pt feeling better and tolerating liquids. Diet advancing to level 5 today and pt d/c today. Pt requested to cancel Enlive and feels he is eating enough currently. No BM since admission per pt. If pt remains we will continue to follow weight, po intake, and diet tolerance every five days.
[2019-09-18 13:50] LABS: Glucose Point of Care 154 (65-105)
[2019-09-18 14:00] VITALS: BP 123/65; PULSE 73; RESP 16; TEMP 36.7; O2SAT 97
--- NOTE | 2019-09-18 14:55 | PC.NURSE ---
Report called to nurse at [facility] after multiple attempts to contact them. All questions and concerns were answered during report.
--- NOTE | 2019-09-18 15:10 | PC.NURSE ---
On 09/18/19, the License pending nurse, Jerrod Nagel RN provided care and completed [employer] documentation on this patient. I have reviewed the documentation and agree with the findings.
--- NOTE | 2019-09-18 15:42 | PCPTNOTE ---
The PT treatment was unable to be completed today. Will continue per Plan of Care frequency and duration.
--- NOTE | 2019-09-18 17:55 | P.DS_ITS ---
DS: Diagnosis Admitting Diagnosis Admitting Diagnosis: Fistula of stomach and duodenum Discharge Diagnosis (1) Epistaxis: Code(s): R04.0 - Epistaxis Status: Acute Assessment and Plan: * 09/14 Eliquis held initially and restarted p.m. 09/15 * 09/14 Trial of oxymetzoline spray * ENT evaluation not available as inpatient * cautery with silver nitrate by Dr. Shelton in order to resume Eliquis at lower dose 5 mg b.i.d p.m.09/15 * No further epistaxis the last 2 days prior to discharge and hemoglobin remained stable (2) Right leg DVT: Qualifiers: Affected thrombotic vein of extremity: femoral Chronicity: acute Qualified Code(s): I82.411 - Acute embolism and thrombosis of right femoral vein Code(s): I82.401 - Acute embolism and thrombosis of unspecified deep veins of right lower extremity Status: Acute Assessment and Plan: * Due to NPO status, heparin begun 09/11 * 09/12 stopped heparin and began Eliquis 10mg PO q 12 hrs * 09/14 Day 4 anticoagulation but Eliquis held due to epistaxis and restarted pm 09/15 * Continued Eliquis 5 b.i.d. discharge (3) Acute kidney injury: Code(s): N17.9 - Acute kidney failure, unspecified Status: Acute Assessment and Plan: * Due to a combination of dehydration and obstructive uropathy * Creatinine stabilized , now at 1.1 after hydration and franklin * Continue to monitor (4) Acute urinary retention: Code(s): R33.8 - Other retention of urine Status: Acute Assessment and Plan: * BPH and narcotics likely contributing to his acute urinary retention * Continue Franklin catheter and voiding trial 3/ at [facility] (5) Esophageal cancer, stage IV: Code(s): C15.9 - Malignant neoplasm of esophagus, unspecified Status: Acute Assessment and Plan: * Patient has declined to a palliative performance score of 30 for approximately the last 2 months in spite of aggressive therapy * Oncology input noted and appreciated * Patient will likely require SNF rehab at [facility] on discharge. 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: Code(s): K31.6 - Fistula of stomach and duodenum Status: Acute Assessment and Plan: * G-tube replaced 09/11 and to remain in [facility] per surgery (9) Rheumatoid arthritis: Qualifiers: Rheumatoid arthritis location: unspecified site Rheumatoid factor presence: unspecified presence Qualified Code(s): M06.9 - Rheumatoid arthritis, unspecified Code(s): M06.9 - Rheumatoid arthritis, unspecified Status: Acute Assessment and Plan: * 09/11 resumed MTX (10) Diabetes mellitus: Qualifiers: Diabetes mellitus complication status: with hyperglycemia Diabetes mellitus pediatric dietician insulin use: without [facility] use Diabetes mellitus typ
--- NOTE | 2019-09-18 17:55 | PM.DS ---
DS: Diagnosis Admitting Diagnosis Admitting Diagnosis: Fistula of stomach and duodenum Discharge Diagnosis (1) Epistaxis: Code(s): R04.0 - Epistaxis Status: Acute Assessment and Plan: 09/14 Eliquis held initially and restarted p.m. 09/15 09/14 Trial of oxymetzoline spray ENT evaluation not available as inpatient cautery with silver nitrate by Dr. Shelton in order to resume Eliquis at lower dose 5 mg b.i.d p.m.09/15 No further epistaxis the last 2 days prior to discharge and hemoglobin remained stable (2) Right leg DVT: Qualifiers: Affected thrombotic vein of extremity: femoral Chronicity: acute Qualified Code(s): I82.411 - Acute embolism and thrombosis of right femoral vein Code(s): I82.401 - Acute embolism and thrombosis of unspecified deep veins of right lower extremity Status: Acute Assessment and Plan: Due to NPO status, heparin begun 09/11 09/12 stopped heparin and began Eliquis 10mg PO q 12 hrs 09/14 Day 4 anticoagulation but Eliquis held due to epistaxis and restarted pm 09/15 Continued Eliquis 5 b.i.d. discharge (3) Acute kidney injury: Code(s): N17.9 - Acute kidney failure, unspecified Status: Acute Assessment and Plan: Due to a combination of dehydration and obstructive uropathy Creatinine stabilized , now at 1.1 after hydration and franklin Continue to monitor (4) Acute urinary retention: Code(s): R33.8 - Other retention of urine Status: Acute Assessment and Plan: BPH and narcotics likely contributing to his acute urinary retention Continue Franklin catheter and voiding trial / [facility] (5) Esophageal cancer, stage IV: Code(s): C15.9 - Malignant neoplasm of esophagus, unspecified Status: Acute Assessment and Plan: Patient has declined to a palliative performance score of 30 for approximately the last 2 months in spite of aggressive therapy Oncology input noted and appreciated Patient will likely require SNF rehab at [place] on discharge. 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: Code(s): K31.6 - Fistula of stomach and duodenum Status: Acute Assessment and Plan: G-tube replaced 09/11 and to remain in group home per surgery (9) Rheumatoid arthritis: Qualifiers: Rheumatoid arthritis location: unspecified site Rheumatoid factor presence: unspecified presence Qualified Code(s): M06.9 - Rheumatoid arthritis, unspecified Code(s): M06.9 - Rheumatoid arthritis, unspecified Status: Acute Assessment and Plan: 09/11 resumed MTX (10) Diabetes mellitus: Qualifiers: Diabetes mellitus complication status: with hyperglycemia Diabetes mellitus group home insulin use: without terminal worker use Diabetes mellitus type: type 2 Qualified Code(s): E11.65 - Type 2 diabetes mellitus with hyperglycemia Code(s): E11.9 - Type 2 diabetes mellitus without complications Status: Acute Assessment and Plan: Lantus, Januvia, SSI On discharge will resume metformin with the Januvia only (11) Hypothyroidism: Qualifiers: Hypothyroidism type: acquired Qualified Code(s): E03.9 - Hypothyroidism, unspecified Code(s): E03.9 - Hypothyroidis
== END 2019-09-18 15:10 | DRG 391 ==
LOC: ANHED 16:21 → ANH2MED 19:05
PROVIDERS: Internal Medicine Hematology & Oncology; Nurse Practitioner Family; Admitting Provider Internal Medicine; Emergency Provider General Practice; PCP Internal Medicine; Visit Provider Physician Assistant
DX: K31.6 Fistula of stomach and duodenum (principal); D61.810 Antineoplastic chemotherapy induced pancytopenia; N17.9 Acute kidney failure, unspecified; E44.1 Mild protein-calorie malnutrition; I82.411 Acute embolism and thrombosis of right femoral vein; C15.3 Malignant neoplasm of upper third of esophagus; C78.7 Secondary malignant neoplasm of liver and intrahepatic bile duct; Z92.3 Personal history of irradiation; Z92.21 Personal history of antineoplastic chemotherapy; I48.91 Unspecified atrial fibrillation; I10 Essential (primary) hypertension; L89.300 Pressure ulcer of unspecified buttock, unstageable; I25.10 Atherosclerotic heart disease of native coronary artery without angina pectoris; E78.5 Hyperlipidemia, unspecified; E11.9 Type 2 diabetes mellitus without complications; M06.9 Rheumatoid arthritis, unspecified; E03.9 Hypothyroidism, unspecified; R39.15 Urgency of urination; Z95.5 Presence of coronary angioplasty implant and graft; I25.2 Old myocardial infarction; R13.10 Dysphagia, unspecified; Z95.0 Presence of cardiac pacemaker; Z85.828 Personal history of other malignant neoplasm of skin; Z98.49 Cataract extraction status, unspecified eye; Z89.429 Acquired absence of other toe(s), unspecified side; Z87.891 Personal history of nicotine dependence; R33.9 Retention of urine, unspecified; Z68.25 Body mass index [BMI] 25.0-25.9, adult; D69.6 Thrombocytopenia, unspecified; N40.1 Benign prostatic hyperplasia with lower urinary tract symptoms; T40.605A Adverse effect of unspecified narcotics, initial encounter; D63.0 Anemia in neoplastic disease; E86.0 Dehydration; R04.0 Epistaxis; C44.90 Unspecified malignant neoplasm of skin, unspecified; R62.7 Adult failure to thrive
CPT/HCPCS: 36415; 49465; 71045; 73630; 76770; 80048; 80053; 81001; 82607; 82728; 82746; 83036; 83540; 83550; 83605; 83735; 83880; 84100; 84466; 84478; 85025; 85027; 85055; 85610; 85730; 87086; 87088; 93005; 93306; 93970; 96361; 96365; 96375; 96376; 97110; 97161; 97165; 97530; 97535; 99291; A9270; J0131; J0692; J0696; J1642; J1644; J1720; J1815; J2270; J2405; J7120; J7512